=== PATIENT | female | born 1950 | race Caucasian/White ===

== ENCOUNTER 2019-05-16 11:59 | Outpatient (CLI) | payer MEDICARE ==
--- NOTE | 2019-05-16 14:44 | MMO ---
Bilateral MAMMO Bilat Screen [facility]. CLINICAL HISTORY: Patient is 68 years old and is seen for screening. The patient has no family history of breast cancer. The patient has no personal history of cancer. VIEWS: The views performed were: bilateral craniocaudal with tomosynthesis and bilateral mediolateral oblique with tomosynthesis. FILMS COMPARED: The present examination has been compared to prior imaging studies performed at [facility] on 02/20/2015, 02/28/2015 and 04/13/2017. MAMMOGRAM FINDINGS: The breasts are heterogeneously dense, which could obscure a lesion on mammography. There are stable benign appearing calcifications seen in both breasts. There are no suspicious masses, suspicious calcifications, or new areas of architectural distortion. IMPRESSION: THERE IS NO MAMMOGRAPHIC EVIDENCE OF MALIGNANCY. A ROUTINE FOLLOW-UP MAMMOGRAM IN 1 YEAR IS RECOMMENDED. THE RESULTS OF THIS EXAM WERE SENT TO THE PATIENT. ACR BI-RADS Category 2 - Benign finding MAMMOGRAPHY NOTE: 1. A negative mammogram report should not delay a biopsy if a dominant of clinically suspicious mass is present. 2. Approximately 10% to 15% of breast cancers are not detected by mammography. 3. Adenosis and dense breasts may obscure an underlying neoplasm. Reported by: TUNG MAHER MD Electonically Signed: [id number]
== END 2019-05-16 12:00 | disposition home or self-care (01) ==
LOC: BICMAMMO 11:59
PROVIDERS: ATTEND Family Medicine
DX: Z12.31 Encounter for screening mammogram for malignant neoplasm of breast (principal)
CPT/HCPCS: 77063; 77067

== ENCOUNTER 2019-06-13 09:29 | Outpatient (CLI) | payer MEDICARE ==
--- NOTE | 2019-06-13 10:40 | ULT ---
Exam: Bilateral renal ultrasound HISTORY: Hypertension. COMPARISON: None. TECHNIQUE: Grayscale imaging of the kidneys was performed. Kidneys also evaluated with color flow, Do ppler imaging and spectral waveform analysis FINDINGS: Right kidney: Renal cortical thinning. No hydronephrosis. Anechoic focus compatible with a 0.8 cm cys t. Right kidney measurements: 8.2 x 3.8 x 4.0 cm. Left kidney: Normal cortical echotexture. No hydronephrosis. Anechoic focus compatible with a 0.9 cm cyst. Left kidney measurements 8.1 x 4.2 x 4.5 cm. Urinary bladder: Normal mucosa. Renal Doppler: Right renal artery 85.2 cm/s Left renal artery 114.0 cm/s Aorta 64.5 cm/s Right renal artery to aorta ratio 1.3 Left renal artery to aorta ratio 1.8 Right renal arcuate artery resistive index 0.71 Left renal arcuate artery resistive index 0.70 IMPRESSION: 1. No hydronephrosis. 2. Small bilateral renal cortical cyst. 3. Left and right renal arcuate artery resistive index is at the upper limits of normal. Transcribed Date/Time: 06/13/2019 11:29 AM
== END 2019-06-13 09:30 | disposition home or self-care (01) ==
LOC: BICULT 09:29
PROVIDERS: ATTEND Internal Medicine Nephrology
DX: I12.9 Hypertensive chronic kidney disease with stage 1 through stage 4 chronic kidney disease, or unspecified chronic kidney disease (principal); N18.4 Chronic kidney disease, stage 4 (severe); N28.1 Cyst of kidney, acquired
CPT/HCPCS: 76700; 76770

== ENCOUNTER 2019-06-29 09:01 | Emergency (ER) | payer MEDICARE ==
--- NOTE | 2019-06-29 09:56 | RAD ---
EXAM: 3 views of the right wrist HISTORY: Wrist pain after fall COMPARISON: None FINDINGS: 3 views of the right wrist shows no evidence of acute fracture or dislocation. No soft tiss ue swelling is seen. 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 Calcifications seen along the dorsal capsule of the wrist joint. IMPRESSION: No evidence of acute osseous abnormality.
[2019-06-29 10:08] LABS: Hemoglobin 11.4 g/dL (12.0-16.0); Mean Corpuscular HGB CONC 34.1 g/dL (32.0-36.0); Mean Corpuscular Hemoglobin 35.4 pg (27.0-31.0); Mean Platelet Volume 8.5 fL (7.4-10.4); Platelet Count 364 thou/uL (130-400); RBC Distribution Width 14.4 % (11.5-14.5); Red Blood Cell (RBC) Count 3.24 mill/uL (4.20-5.40); White Blood Cell (WBC) Count 12.9 thou/uL (4.8-10.8)
[2019-06-29 10:26] LABS: CRP (Inflammatory) 7.08 mg/dL (= or < 0.5); Uric Acid 3.5 mg/dL (2.6-6.0)
[2019-06-29 10:49] LABS: Band 5 % (5-11); Lymphocytes 24 % (21-51); MDiff Complete? YES; Monocytes 5 % (0-10); Neutrophil 66 % (42-75); Platelet Morphology Comment Appears Adequate; RBC Morphology Normal
== END 2019-06-29 11:53 | disposition home or self-care (01) ==
LOC: ERS 09:01
DX: M25.431 Effusion, right wrist (principal); E11.9 Type 2 diabetes mellitus without complications; M10.9 Gout, unspecified; E78.5 Hyperlipidemia, unspecified; Z79.899 Other long term (current) drug therapy; Z79.84 Long term (current) use of oral hypoglycemic drugs
CPT/HCPCS: 36415; 80048; 82088; 82306; 83970; 84100; 84244; 84550; 85014; 85018; 85652; 86038; 86140; 86225; 93005

== ENCOUNTER 2021-06-20 14:57 | Inpatient (IN) | payer MEDICARE ==
[2021-06-20] MEDS ORDERED: Insulin Regular 300 UNITS/3 ML VIAL ONE (15:30)
[2021-06-20 15:59] LABS: Hemoglobin 8.7 g/dL (12.0-16.0); Mean Corpuscular HGB CONC 33.8 g/dL (32.0-36.0); Mean Corpuscular Hemoglobin 35.3 pg (27.0-31.0); Mean Platelet Volume 9.8 fL (7.4-10.4); Platelet Count 390 thou/uL (130-400); RBC Distribution Width 16.2 % (11.5-14.5); Red Blood Cell (RBC) Count 2.46 mill/uL (4.20-5.40); White Blood Cell (WBC) Count 24.3 thou/uL (4.8-10.8)
[2021-06-20 16:20] LABS: ALT (SGPT) 9 U/L (8-55); AST (SGOT) 12 U/L (5-34); Albumin 2.6 g/dL (3.4-4.8); Alkaline Phosphatase 86 U/L (40-110); Anion Gap 18 mmol/L (10-20); BUN (Urea Nitrogen) 92 mg/dL (9.8-20.1); Bilirubin, Total 0.9 mg/dL (0.2-1.2); Calc. Creatinine Clearance 0 mL/min (70-130); Calcium 8.4 mg/dL (7.8-10.44); Carbon Dioxide 30 mmol/L (23-31); Chloride 88 mmol/L (98-107); Globulin 2.8 g/dL (2.4-3.5); Potassium 3.6 mmol/L (3.5-5.1); Protein, Total 5.4 g/dL (5.8-8.1); Sodium 132 mmol/L (136-145)
[2021-06-20 16:28] LABS: Glucose 577 mg/dL (80-115)
[2021-06-20 16:33] LABS: Anisocytosis SLIGHT = 6-15 cells (100X) (0-5/hpf); Band 45 % (5-11); Eosinophils 1 % (0-10); Lymphocytes 2 % (21-51); MDiff Complete? YES; Macrocytosis SLIGHT = 6-15 cells (100X) (0-5/hpf); Monocytes 5 % (0-10); Neutrophil 45 % (42-75); Platelet Morphology Comment Appears Adequate; Polychromasia MODERATE = 3-4 cells (100X) (0-2/hpf); Reactive Lymphocytes 2 % (0-10); Reflex for Review?? YES
[2021-06-20 16:53] LABS: SARS-CoV-2 NAA Rapid Test DETECTED (NotDetected)
[2021-06-20] MEDS ORDERED: Piperacillin/Tazobactam 3.375 GM VIAL ONE (17:08)
[2021-06-20 17:11] LABS: Bilirubin Negative (Negative); Blood, Urine Negative (Negative); Clarity Clear (Clear); Glucose, Urine (Dipstick) Greater than 1000 mg/dL (Negative); Ketone, Urine Negative (Negative); Leukocyte Negative Leu/uL (Negative); Nitrite Negative (Negative); Protein, Urine (Dipstick) Negative (Neg-Trace); Specific Gravity, Urine 1.016 (1.002-1.036); Urobilinogen Normal mg/dL (Less than 2)
[2021-06-20] MEDS ORDERED: HYDROcodone/Acetaminophen 5/325 mg Tablet PO PRN (17:54)
[2021-06-20] MEDS ORDERED: Guaifenesin DM 100-10/5 ML UDCUP PO PRN (17:54)
[2021-06-20] MEDS ORDERED: Acetaminophen 325 MG TAB PO PRN (17:54)
[2021-06-20] MEDS ORDERED: Ondansetron PF 4 MG/2 ML Vial IVP PRN (17:54)
[2021-06-20] MEDS ORDERED: Bisacodyl 5 MG TAB PO PRN (17:54)
[2021-06-20] MEDS ORDERED: Ondansetron ODT 4 MG TAB PO PRN (17:54)
[2021-06-20] MEDS ORDERED: Dextrose 50% Abboject 50 ML SYRINGE SLOW IVP PRN (17:57)
[2021-06-20] MEDS ORDERED: Dextrose 5% in Water 1,000 ML IV PRN (17:57)
[2021-06-20] MEDS ORDERED: Vancomycin 1 GM/200 ML BAG ONE (18:04)
[2021-06-20] MEDS ORDERED: cefTRIAXone\\ROCEPHIN 1 GM VIAL ONE (19:51)
[2021-06-20] MEDS ORDERED: Azithromycin 500 MG VIAL ONE (19:52)
[2021-06-20] MEDS ORDERED: Famotidine/PF 20 mg/2ml Vial ONE (19:53)
[2021-06-20] MEDS ORDERED: Sodium Chloride 0.9% 1,000 ML IV SCH (20:00)
[2021-06-20] MEDS: cefTRIAXone\\ROCEPHIN 1 GM in Sodium Chloride 0.9% 100 ML IVPB SCH (20:06)
[2021-06-20] MEDS: Famotidine 20 MG TAB PO SCH (20:07)
[2021-06-20] MEDS: Azithromycin 500 MG in Sodium Chloride 0.9% 250 ML 250 ML IVPB SCH (21:08)
[2021-06-20] MEDS: Lantus 1000 UNITS/10 ML VIAL SC SCH (21:25)
[2021-06-20] MEDS: Insulin Regular 300 UNITS/3 ML VIAL SC PRN (21:26)
[2021-06-21 04:37] LABS: Hemoglobin 8.3 g/dL (12.0-16.0); Mean Corpuscular Hemoglobin 35.8 pg (27.0-31.0); Mean Platelet Volume 9.9 fL (7.4-10.4); Platelet Count 362 thou/uL (130-400); RBC Distribution Width 16.4 % (11.5-14.5); Red Blood Cell (RBC) Count 2.31 mill/uL (4.20-5.40); White Blood Cell (WBC) Count 27.4 thou/uL (4.8-10.8)
[2021-06-21 04:57] LABS: Anion Gap 14 mmol/L (10-20); BUN (Urea Nitrogen) 82 mg/dL (9.8-20.1); Calc. Creatinine Clearance 17 mL/min (70-130); Calcium 8.9 mg/dL (7.8-10.44); Carbon Dioxide 33 mmol/L (23-31); Cardiac Risk 3.3 (Less than 4.5); Chloride 96 mmol/L (98-107); Cholesterol 79 mg/dl (< 200 Desired); Glucose 135 mg/dL (80-115); HDL Cholesterol 24 mg/dL (>60 Neg Risk); LDL Cholesterol, Calculated 20 mg/dL; Sodium 140 mmol/L (136-145); Triglycerides 173 mg/dL (Less than 150)
[2021-06-21 05:01] LABS: Potassium 2.7 mmol/L (3.5-5.1)
[2021-06-21] MEDS ORDERED: Potassium Chloride 20 MEQ TAB ONE ×3 (05:37→05:38)
[2021-06-21] MEDS ORDERED: Potassium Chloride 20 MEQ TAB PO SCH ×3 (06:15→15:45)
[2021-06-21 06:21] LABS: Band 39 % (5-11); Lymphocytes 8 % (21-51); MDiff Complete? YES; Monocytes 6 % (0-10); Neutrophil 47 % (42-75)
[2021-06-21] MEDS ORDERED: Electrolyte Replacement Protocol 1 EACH FS SCH (07:29)
[2021-06-21] MEDS: Aspirin 81 mg Enteric Coated Tablet PO SCH (08:37)
[2021-06-21] MEDS: Zinc Sulfate 220 MG CAP PO SCH (08:37)
[2021-06-21] MEDS: Ascorbic Acid 500 mg Chewable Tablet PO SCH (08:38)
[2021-06-21] MEDS: Enoxaparin Sodium 30 MG/0.3 ML SYRINGE SC SCH (08:38)
[2021-06-21] MEDS ORDERED: Dextrose 5% in Water 1,000 ML IV PRN (08:49)
[2021-06-21] MEDS ORDERED: Dextrose 50% Abboject 50 ML SYRINGE SLOW IVP PRN (08:49)
[2021-06-21] MEDS ORDERED: Dexamethasone 4 mg/ml Vial SLOW IVP SCH (09:00)
[2021-06-21 11:08] VITALS: BMI 25.2
[2021-06-21] MEDS: Insulin Regular 300 UNITS/3 ML VIAL SC PRN ×3 (11:58→20:58)
[2021-06-21 12:11] LABS: Anion Gap 16 mmol/L (10-20); BUN (Urea Nitrogen) 82 mg/dL (9.8-20.1); Calc. Creatinine Clearance 17 mL/min (70-130); Calcium 9.2 mg/dL (7.8-10.44); Carbon Dioxide 31 mmol/L (23-31); Chloride 95 mmol/L (98-107); Glucose 152 mg/dL (80-115); Potassium 3.3 mmol/L (3.5-5.1); Sodium 139 mmol/L (136-145)
[2021-06-21] MEDS: cefTRIAXone\\ROCEPHIN 1 GM in Sodium Chloride 0.9% 100 ML IVPB SCH (20:47)
[2021-06-21] MEDS: Famotidine 20 MG TAB PO SCH (20:48)
[2021-06-21] MEDS: Cholecalciferol 1,000 UNITS (25 MCG) TAB PO SCH (20:48)
[2021-06-21] MEDS: Atorvastatin Calcium 10 MG TAB PO SCH (20:48)
[2021-06-21] MEDS: Carvedilol 25 MG TAB PO SCH (20:49)
[2021-06-21] MEDS: Lantus 1000 UNITS/10 ML VIAL SC SCH (20:51)
[2021-06-22] MEDS: Azithromycin 500 MG in Sodium Chloride 0.9% 250 ML 250 ML IVPB SCH (00:44)
[2021-06-22 05:49] LABS: Hemoglobin 8.1 g/dL (12.0-16.0); Mean Corpuscular HGB CONC 34.1 g/dL (32.0-36.0); Mean Corpuscular Hemoglobin 36.3 pg (27.0-31.0); Mean Platelet Volume 9.6 fL (7.4-10.4); Platelet Count 321 thou/uL (130-400); RBC Distribution Width 15.9 % (11.5-14.5); Red Blood Cell (RBC) Count 2.24 mill/uL (4.20-5.40); White Blood Cell (WBC) Count 24.4 thou/uL (4.8-10.8)
[2021-06-22 06:07] LABS: Anion Gap 14 mmol/L (10-20); BUN (Urea Nitrogen) 72 mg/dL (9.8-20.1); Calc. Creatinine Clearance 19 mL/min (70-130); Calcium 9.4 mg/dL (7.8-10.44); Carbon Dioxide 28 mmol/L (23-31); Chloride 101 mmol/L (98-107); Glucose 135 mg/dL (80-115); Potassium 4.1 mmol/L (3.5-5.1); Sodium 139 mmol/L (136-145)
[2021-06-22] MEDS ORDERED: Loperamide HCl 2 MG CAP PO PRN (07:11)
[2021-06-22] MEDS ORDERED: Artificial Tear Sol 15 ML BOT EA EYE PRN (07:11)
[2021-06-22] MEDS ORDERED: Sodium Chloride 0.65% Nasal 44 ML BOT EA NARE PRN (07:11)
[2021-06-22] MEDS ORDERED: hydrALAZINE 20 MG/ML VIAL SLOW IVP PRN (07:11)
[2021-06-22] MEDS ORDERED: Loratadine 10 MG TAB PO PRN (07:11)
[2021-06-22] MEDS ORDERED: Hydrocerin (Eucerin) Cream 120 gm Jar TOP PRN (07:11)
[2021-06-22] MEDS ORDERED: Benzonatate 100 MG CAP PO PRN (07:11)
[2021-06-22] MEDS ORDERED: Calcium Carbonate 500 MG ChewTAB PO PRN (07:11)
[2021-06-22] MEDS ORDERED: Cepastat Lozenges 1 LOZ PO PRN (07:11)
[2021-06-22] MEDS ORDERED: GUAIFENESIN SF SOLN 200 MG/10 ML UDCUP PO PRN (07:11)
[2021-06-22] MEDS ORDERED: Albuterol Sulfate 2.5 mg/3 ml Neb NEB PRN (07:16)
[2021-06-22] MEDS ORDERED: Albuterol 200 PUFF (6.7GM INHALER) INH PRN (07:20)
[2021-06-22 09:47] LABS: Band 36 % (5-11); Lymphocytes 3 % (21-51); MDiff Complete? YES; Monocytes 1 % (0-10); Myelocyte 1 % (0-0); Neutrophil 59 % (42-75)
[2021-06-22] MEDS: Dexamethasone 4 MG TAB PO SCH (10:22)
[2021-06-22] MEDS: Zinc Sulfate 220 MG CAP PO SCH (10:22)
[2021-06-22] MEDS: Folic Acid/Vit B Comp W-C PO SCH (10:23)
[2021-06-22] MEDS: Ascorbic Acid 500 mg Chewable Tablet PO SCH (10:23)
[2021-06-22] MEDS: Enoxaparin Sodium 30 MG/0.3 ML SYRINGE SC SCH (10:24)
[2021-06-22] MEDS: Aspirin 81 mg Enteric Coated Tablet PO SCH (10:24)
[2021-06-22] MEDS: Carvedilol 25 MG TAB PO SCH ×2 (10:31→20:38)
[2021-06-22] MEDS: Insulin Regular 300 UNITS/3 ML VIAL SC PRN ×2 (14:00→18:31)
[2021-06-22] MEDS: Azithromycin 250 MG TAB PO SCH ×2 (20:38→20:39)
[2021-06-22] MEDS: cefTRIAXone\\ROCEPHIN 1 GM in Sodium Chloride 0.9% 100 ML IVPB SCH (20:38)
[2021-06-22] MEDS: Cholecalciferol 1,000 UNITS (25 MCG) TAB PO SCH (20:39)
[2021-06-22] MEDS: Lantus 1000 UNITS/10 ML VIAL SC SCH (20:42)
[2021-06-23 05:32] LABS: Mean Corpuscular HGB CONC 33.9 g/dL (32.0-36.0); Mean Corpuscular Hemoglobin 36.1 pg (27.0-31.0); Mean Platelet Volume 9.6 fL (7.4-10.4); Platelet Count 307 thou/uL (130-400); Red Blood Cell (RBC) Count 2.21 mill/uL (4.20-5.40); White Blood Cell (WBC) Count 16.9 thou/uL (4.8-10.8)
[2021-06-23 05:56] LABS: ALT (SGPT) 13 U/L (8-55); AST (SGOT) 11 U/L (5-34); Albumin 2.6 g/dL (3.4-4.8); Alkaline Phosphatase 80 U/L (40-110); Anion Gap 11 mmol/L (10-20); BUN (Urea Nitrogen) 59 mg/dL (9.8-20.1); Bilirubin, Total 0.4 mg/dL (0.2-1.2); CRP (Inflammatory) 4.27 mg/dL (= or < 0.5); Calc. Creatinine Clearance 20 mL/min (70-130); Calcium 9.4 mg/dL (7.8-10.44); Carbon Dioxide 30 mmol/L (23-31); Chloride 100 mmol/L (98-107); Globulin 3.1 g/dL (2.4-3.5); Glucose 202 mg/dL (80-115); Magnesium 2.2 mg/dL (1.6-2.6); Potassium 4.3 mmol/L (3.5-5.1); Protein, Total 5.7 g/dL (5.8-8.1); Sodium 137 mmol/L (136-145)
[2021-06-23] MEDS: Insulin Regular 300 UNITS/3 ML VIAL SC PRN ×2 (06:22→12:26)
[2021-06-23 06:35] LABS: MDiff Complete? YES
[2021-06-23 06:36] LABS: Band 12 % (5-11); Lymphocytes 10 % (21-51); Monocytes 1 % (0-10); Neutrophil 77 % (42-75); Nucleated RBC 1 % (0)
[2021-06-23] MEDS: Enoxaparin Sodium 30 MG/0.3 ML SYRINGE SC SCH (09:11)
[2021-06-23] MEDS: Dexamethasone 4 MG TAB PO SCH (09:12)
[2021-06-23] MEDS: Aspirin 81 mg Enteric Coated Tablet PO SCH (09:12)
[2021-06-23] MEDS: Ascorbic Acid 500 mg Chewable Tablet PO SCH (09:12)
[2021-06-23] MEDS: Zinc Sulfate 220 MG CAP PO SCH (09:13)
[2021-06-23] MEDS: Folic Acid/Vit B Comp W-C PO SCH (09:13)
[2021-06-23] MEDS: Carvedilol 25 MG TAB PO SCH (09:15)
[2021-06-23 13:43] VITALS: TEMP 97.7
[2021-06-23 15:07] LABS: Creatinine, Urine 69.66 mg/dL (47-110)
[2021-06-23 16:39] VITALS: BP 141/67
== END 2021-06-23 19:25 | disposition home or self-care (01) | DRG 871 ==
LOC: ERS 14:57 → ERHOLD 17:38 → 2SW 06-21 06:27
PROVIDERS: ADMIT Internal Medicine; ATTEND Internal Medicine
PROC: 8E0ZXY6 Isolation (ICD-10-PCS; principal; 2021-06-20)
DX: A41.89 Other specified sepsis (principal); U07.1 COVID-19; J12.82 Pneumonia due to coronavirus disease 2019; J96.01 Acute respiratory failure with hypoxia; N17.9 Acute kidney failure, unspecified; N18.4 Chronic kidney disease, stage 4 (severe); E87.2 Acidosis; R65.20 Severe sepsis without septic shock; E11.65 Type 2 diabetes mellitus with hyperglycemia; E78.5 Hyperlipidemia, unspecified; E11.22 Type 2 diabetes mellitus with diabetic chronic kidney disease; I13.10 Hypertensive heart and chronic kidney disease without heart failure, with stage 1 through stage 4 chronic kidney disease, or unspecified chronic kidney disease; F17.210 Nicotine dependence, cigarettes, uncomplicated; D63.1 Anemia in chronic kidney disease; E86.9 Volume depletion, unspecified; E87.6 Hypokalemia; Z90.710 Acquired absence of both cervix and uterus; Z79.82 Long term (current) use of aspirin; Z79.84 Long term (current) use of oral hypoglycemic drugs; Z83.3 Family history of diabetes mellitus
CPT/HCPCS: 36415; 36416; 51701; 71045; 80048; 80053; 80061; 81003; 82274; 82570; 82728; 83036; 83605; 83735; 83880; 84100; 84156; 84484; 85025; 85060; 85379; 86140; 87040; 87077; 87086; 87186; 93005; 96365; 96366; 96367; J0456; J0696; J1100; J1650; J1815; J2405; J2543; J3370; J3490; J7050; J8540; S0028; U0002

== ENCOUNTER 2021-06-29 20:59 | Inpatient (IN) | payer MEDICARE ==
[2021-06-29 21:52] LABS: Actual Bicarbonate (HCO3v) 25 mEq/L (22-28); Analyzer IN Cardio ER; Base Excess 0.2 mEq/L (-2.0 to +3.0); Calcium, Ionized (venous) 1.22 mmol/L (1.16-1.32); Chloride (VBG) 90 mmol/L (98-106); Hemoglobin (Hb) 8.6 g/dL (11.7-16.1); Potassium (VBG) 5.45 mmol/L (3.70-5.30); Sodium 128.9 mmol/L (133-146); pH (venous) 7.39 (7.32-7.43)
[2021-06-29 22:05] LABS: ALT (SGPT) 12 U/L (8-55); AST (SGOT) 6 U/L (5-34); Alkaline Phosphatase 120 U/L (40-110); Anion Gap 17 mmol/L (10-20); BUN (Urea Nitrogen) 84 mg/dL (9.8-20.1); Bilirubin, Total 1.1 mg/dL (0.2-1.2); Calc. Creatinine Clearance 0 mL/min (70-130); Calcium 9.4 mg/dL (7.8-10.44); Carbon Dioxide 29 mmol/L (23-31); Chloride 88 mmol/L (98-107); Globulin 2.2 g/dL (2.4-3.5); Magnesium 2.9 mg/dL (1.6-2.6); Potassium 5.8 mmol/L (3.5-5.1); Protein, Total 5.2 g/dL (5.8-8.1); Sodium 128 mmol/L (136-145)
[2021-06-29 22:13] LABS: Hemoglobin 8.2 g/dL (12.0-16.0); Mean Corpuscular HGB CONC 33.2 g/dL (32.0-36.0); Mean Platelet Volume 11.4 fL (7.4-10.4); Platelet Count 346 thou/uL (130-400); RBC Distribution Width 16.3 % (11.5-14.5); Red Blood Cell (RBC) Count 2.35 mill/uL (4.20-5.40); White Blood Cell (WBC) Count 22.8 thou/uL (4.8-10.8)
[2021-06-29 22:14] LABS: Glucose 869 mg/dL (80-115)
[2021-06-29 22:29] LABS: Band 6 % (5-11); Lymphocytes 8 % (21-51); MDiff Complete? YES; Macrocytosis MODERATE=16-30 cells (100X) (0-5/hpf); Monocytes 3 % (0-10); Neutrophil 82 % (42-75); Nucleated RBC 1 % (0); Platelet Morphology Comment Appears Adequate; Reactive Lymphocytes 1 % (0-10)
[2021-06-29] MEDS ORDERED: Insulin Regular 300 UNITS/3 ML VIAL ONE (23:21)
[2021-06-30 00:30] LABS: Anion Gap 18 mmol/L (10-20); BUN (Urea Nitrogen) 78 mg/dL (9.8-20.1); Calc. Creatinine Clearance 0 mL/min (70-130); Calcium 8.9 mg/dL (7.8-10.44); Carbon Dioxide 23 mmol/L (23-31); Chloride 94 mmol/L (98-107); Potassium 4.8 mmol/L (3.5-5.1); Sodium 130 mmol/L (136-145)
[2021-06-30 00:39] LABS: Glucose Greater than 800 mg/dL (80-115)
[2021-06-30 00:41] LABS: Lactic Acid 1.7 mmol/L (0.5-2.2)
[2021-06-30 02:58] LABS: SARS-CoV-2 NAA Rapid Test Not Detected (NotDetected)
[2021-06-30] MEDS ORDERED: NS 0.9% w/ 20 MEQ KCL 1,000 ML ONE (03:01)
[2021-06-30] MEDS ORDERED: INSULIN REGULAR IN 0.9 % NACL 100 UNIT/100 ML BAG ONE (03:01)
[2021-06-30] MEDS ORDERED: Acetaminophen 325 MG TAB PO PRN (03:02)
[2021-06-30] MEDS ORDERED: Bisacodyl 5 MG TAB PO PRN (03:02)
[2021-06-30] MEDS ORDERED: GUAIFENESIN SF SOLN 200 MG/10 ML UDCUP PO PRN (03:06)
[2021-06-30] MEDS ORDERED: hydrALAZINE 20 MG/ML VIAL SLOW IVP PRN (03:06)
[2021-06-30 03:15] LABS: Troponin I Less than 0.010 ng/mL (< 0.028)
[2021-06-30] MEDS ORDERED: HUMULIN R 100 UNITS in Sodium Chloride 0.9% 100 ML IVPB SCH (03:15)
[2021-06-30 03:37] LABS: Bilirubin Negative (Negative); Blood, Urine Negative (Negative); Clarity Clear (Clear); Glucose, Urine (Dipstick) Greater than 1000 mg/dL (Negative); Ketone, Urine Negative (Negative); Leukocyte Negative Leu/uL (Negative); Nitrite Negative (Negative); Protein, Urine (Dipstick) Negative (Neg-Trace); Specific Gravity, Urine 1.017 (1.002-1.036); Urobilinogen Normal mg/dL (Less than 2)
[2021-06-30] MEDS: Sodium Chloride 0.9% 1,000 ML IV SCH ×2 (05:02→16:55)
[2021-06-30 05:19] VITALS: BMI 25.1
[2021-06-30 05:45] LABS: Creatinine, Urine 22.12 mg/dL (47-110)
[2021-06-30 06:04] LABS: Band 23 % (5-11); Hemoglobin 7.5 g/dL (12.0-16.0); Lymphocytes 2 % (21-51); MDiff Complete? YES; Mean Corpuscular HGB CONC 35.3 g/dL (32.0-36.0); Mean Corpuscular Hemoglobin 36.6 pg (27.0-31.0); Mean Platelet Volume 11.1 fL (7.4-10.4); Metamyelocyte 3 % (0-0); Monocytes 3 % (0-10); Neutrophil 69 % (42-75); Platelet Count 261 thou/uL (130-400); Platelet Morphology Comment Appears Adequate; RBC Distribution Width 16.1 % (11.5-14.5); Red Blood Cell (RBC) Count 2.04 mill/uL (4.20-5.40); White Blood Cell (WBC) Count 21.9 thou/uL (4.8-10.8)
[2021-06-30 06:18] LABS: Phosphorus 3.2 mg/dL (2.3-4.7)
[2021-06-30 06:19] LABS: Troponin I Less than 0.010 ng/mL (< 0.028)
[2021-06-30 06:19] LABS: ALT (SGPT) 11 U/L (8-55); AST (SGOT) 8 U/L (5-34); Albumin 2.5 g/dL (3.4-4.8); Alkaline Phosphatase 95 U/L (40-110); Anion Gap 10 mmol/L (10-20); BUN (Urea Nitrogen) 78 mg/dL (9.8-20.1); Bilirubin, Total 0.5 mg/dL (0.2-1.2); Calc. Creatinine Clearance 18 mL/min (70-130); Calcium 8.6 mg/dL (7.8-10.44); Carbon Dioxide 26 mmol/L (23-31); Chloride 103 mmol/L (98-107); Globulin 2.1 g/dL (2.4-3.5); Magnesium 2.6 mg/dL (1.6-2.6); Potassium 4.3 mmol/L (3.5-5.1); Protein, Total 4.6 g/dL (5.8-8.1); Sodium 135 mmol/L (136-145)
[2021-06-30 06:24] LABS: Glucose 557 mg/dL (80-115)
[2021-06-30 07:38] LABS: Anion Gap 13 mmol/L (10-20); BUN (Urea Nitrogen) 72 mg/dL (9.8-20.1); Calc. Creatinine Clearance 19 mL/min (70-130); Calcium 8.7 mg/dL (7.8-10.44); Carbon Dioxide 25 mmol/L (23-31); Chloride 104 mmol/L (98-107); Glucose 477 mg/dL (80-115); Potassium 4.4 mmol/L (3.5-5.1); Sodium 138 mmol/L (136-145)
[2021-06-30] MEDS ORDERED: Piperacillin/Tazobactam 4.5 GM in Sodium Chloride 0.9% 100 ML IVPB SCH (08:00)
[2021-06-30] MEDS ORDERED: Piperacillin/Tazobactam 3.375 GM in Sodium Chloride 0.9% 100 ML IVPB SCH (08:15)
[2021-06-30] MEDS ORDERED: Carvedilol 25 MG TAB PO SCH (09:00)
[2021-06-30] MEDS: Aspirin Chewable 81 MG TAB PO SCH (09:37)
[2021-06-30] MEDS: glyBURIDE 5 MG TAB PO SCH (09:37)
[2021-06-30] MEDS: Allopurinol 300 MG TAB PO SCH (09:37)
[2021-06-30] MEDS: guaiFENesin ER 600 MG TAB PO SCH ×2 (09:37→20:42)
[2021-06-30] MEDS: Heparin 5,000 UNITS/ML VIAL SC SCH ×3 (09:39→20:41)
[2021-06-30] MEDS: Dexamethasone 4 mg/ml Vial SLOW IVP SCH (09:43)
[2021-06-30 12:12] LABS: Anion Gap 9 mmol/L (10-20); BUN (Urea Nitrogen) 74 mg/dL (9.8-20.1); Calc. Creatinine Clearance 20 mL/min (70-130); Calcium 8.6 mg/dL (7.8-10.44); Carbon Dioxide 28 mmol/L (23-31); Chloride 106 mmol/L (98-107); Glucose 170 mg/dL (80-115); Sodium 139 mmol/L (136-145)
[2021-06-30] MEDS ORDERED: Dextrose 50% Abboject 50 ML SYRINGE SLOW IVP PRN (16:39)
[2021-06-30] MEDS ORDERED: Dextrose 5% in Water 1,000 ML IV PRN (16:39)
[2021-06-30] MEDS: Piperacillin/Tazobactam 3.375 GM in Sodium Chloride 0.9% 100 ML IVPB SCH (20:42)
[2021-06-30] MEDS: Atorvastatin Calcium 10 MG TAB PO SCH (20:42)
[2021-07-01] MEDS: Sodium Chloride 0.9% 1,000 ML IV SCH ×2 (01:28→15:14)
[2021-07-01 04:30] LABS: Anion Gap 15 mmol/L (10-20); BUN (Urea Nitrogen) 69 mg/dL (9.8-20.1); Calc. Creatinine Clearance 18 mL/min (70-130); Calcium 8.1 mg/dL (7.8-10.44); Carbon Dioxide 19 mmol/L (23-31); Chloride 109 mmol/L (98-107); Glucose 243 mg/dL (80-115); Potassium 4.3 mmol/L (3.5-5.1); Sodium 139 mmol/L (136-145)
[2021-07-01] MEDS: HumaLOG 300 UNITS/3 ML VIAL SC PRN ×4 (05:38→20:59)
[2021-07-01] MEDS: glyBURIDE 5 MG TAB PO SCH (08:47)
[2021-07-01] MEDS: Dexamethasone 4 mg/ml Vial SLOW IVP SCH (08:47)
[2021-07-01] MEDS: guaiFENesin ER 600 MG TAB PO SCH ×2 (08:47→20:57)
[2021-07-01] MEDS: Piperacillin/Tazobactam 3.375 GM in Sodium Chloride 0.9% 100 ML IVPB SCH ×2 (08:47→20:56)
[2021-07-01] MEDS: Allopurinol 300 MG TAB PO SCH (08:47)
[2021-07-01] MEDS: Aspirin Chewable 81 MG TAB PO SCH (08:47)
[2021-07-01] MEDS: Heparin 5,000 UNITS/ML VIAL SC SCH ×3 (08:58→20:57)
[2021-07-01] MEDS: Atorvastatin Calcium 10 MG TAB PO SCH (20:57)
[2021-07-01] MEDS: Lantus 1000 UNITS/10 ML VIAL SC SCH (20:59)
[2021-07-02] MEDS: Sodium Chloride 0.9% 1,000 ML IV SCH ×3 (00:39→17:49)
[2021-07-02] MEDS: HumaLOG 300 UNITS/3 ML VIAL SC PRN ×3 (06:21→17:48)
[2021-07-02 07:31] LABS: Hemoglobin 6.7 g/dL (12.0-16.0); Mean Corpuscular HGB CONC 33.8 g/dL (32.0-36.0); Mean Corpuscular Hemoglobin 36.1 pg (27.0-31.0); Mean Platelet Volume 10.6 fL (7.4-10.4); Platelet Count 313 thou/uL (130-400); RBC Distribution Width 16.5 % (11.5-14.5); Red Blood Cell (RBC) Count 1.86 mill/uL (4.20-5.40); White Blood Cell (WBC) Count 21.6 thou/uL (4.8-10.8)
[2021-07-02 07:42] LABS: Anion Gap 12 mmol/L (10-20); BUN (Urea Nitrogen) 60 mg/dL (9.8-20.1); Calc. Creatinine Clearance 21 mL/min (70-130); Calcium 7.9 mg/dL (7.8-10.44); Carbon Dioxide 20 mmol/L (23-31); Chloride 111 mmol/L (98-107); Glucose 192 mg/dL (80-115); Potassium 3.9 mmol/L (3.5-5.1); Sodium 139 mmol/L (136-145)
[2021-07-02 07:52] LABS: Band 2 % (5-11); Lymphocytes 11 % (21-51); MDiff Complete? YES; Metamyelocyte 1 % (0-0); Monocytes 2 % (0-10); Myelocyte 3 % (0-0); Neutrophil 81 % (42-75); Nucleated RBC 1 % (0); Ovalocytes SLIGHT = 2-5 cells (100X) (0-1/hpf); Platelet Morphology Comment Appears Adequate; Polychromasia MODERATE = 3-4 cells (100X) (0-2/hpf)
[2021-07-02 10:01] LABS: Ferritin 372.18 ng/mL (10-291)
[2021-07-02] MEDS: glyBURIDE 5 MG TAB PO SCH (10:04)
[2021-07-02] MEDS: Allopurinol 100 MG TAB PO SCH (10:04)
[2021-07-02] MEDS: guaiFENesin ER 600 MG TAB PO SCH ×2 (10:04→20:36)
[2021-07-02] MEDS: Aspirin Chewable 81 MG TAB PO SCH (10:04)
[2021-07-02] MEDS: Lantus 1000 UNITS/10 ML VIAL SC SCH ×2 (10:05→20:37)
[2021-07-02] MEDS: Piperacillin/Tazobactam 3.375 GM in Sodium Chloride 0.9% 100 ML IVPB SCH ×2 (10:05→20:35)
[2021-07-02] MEDS: Atorvastatin Calcium 10 MG TAB PO SCH (20:36)
[2021-07-02] MEDS: Ondansetron PF 4 MG/2 ML Vial IVP PRN (21:09)
[2021-07-02 21:50] LABS: Hemoglobin 11.4 g/dL (12.0-16.0)
[2021-07-03] MEDS: Sodium Chloride 0.9% 1,000 ML IV SCH (04:06)
[2021-07-03] MEDS: Lantus 1000 UNITS/10 ML VIAL SC SCH ×2 (08:48→21:48)
[2021-07-03] MEDS: Allopurinol 100 MG TAB PO SCH (08:49)
[2021-07-03] MEDS: glyBURIDE 5 MG TAB PO SCH (08:49)
[2021-07-03] MEDS: guaiFENesin ER 600 MG TAB PO SCH ×2 (08:49→20:02)
[2021-07-03] MEDS: Aspirin Chewable 81 MG TAB PO SCH (08:49)
[2021-07-03] MEDS: Piperacillin/Tazobactam 3.375 GM in Sodium Chloride 0.9% 100 ML IVPB SCH ×2 (08:50→20:02)
[2021-07-03 08:58] LABS: Hemoglobin 10.6 g/dL (12.0-16.0); Mean Corpuscular HGB CONC 31.6 g/dL (32.0-36.0); Mean Corpuscular Hemoglobin 29.4 pg (27.0-31.0); Mean Platelet Volume 10.6 fL (7.4-10.4); Platelet Count 275 thou/uL (130-400); RBC Distribution Width 23.8 % (11.5-14.5); Red Blood Cell (RBC) Count 3.61 mill/uL (4.20-5.40); White Blood Cell (WBC) Count 19.9 thou/uL (4.8-10.8)
[2021-07-03 09:09] LABS: Anion Gap 9 mmol/L (10-20); BUN (Urea Nitrogen) 42 mg/dL (9.8-20.1); Calc. Creatinine Clearance 26 mL/min (70-130); Calcium 7.7 mg/dL (7.8-10.44); Carbon Dioxide 19 mmol/L (23-31); Chloride 118 mmol/L (98-107); Glucose 75 mg/dL (80-115); Potassium 3.8 mmol/L (3.5-5.1); Sodium 142 mmol/L (136-145)
[2021-07-03 09:31] LABS: Anisocytosis MODERATE=16-30 cells (100X) (0-5/hpf); Band 4 % (5-11); Lymphocytes 15 % (21-51); MDiff Complete? YES; Metamyelocyte 3 % (0-0); Monocytes 5 % (0-10); Myelocyte 5 % (0-0); Neutrophil 68 % (42-75); Platelet Morphology Comment Appears Adequate; Polychromasia SLIGHT = 2-3 cells (100X) (0-2/hpf)
[2021-07-03] MEDS: Ondansetron PF 4 MG/2 ML Vial IVP PRN (12:32)
[2021-07-03] MEDS: Dextrose 5% in Water 1,000 ML IV SCH (13:22)
[2021-07-03] MEDS ORDERED: GoLYTELY 4,000 ml Bottle PO SCH (14:00)
[2021-07-03] MEDS ORDERED: Ondansetron HCl/PF 4 MG in Sodium Chloride 0.9% 50 ML IVPB SCH (15:00)
[2021-07-03] MEDS ORDERED: Ondansetron PF 4 MG/2 ML Vial IVP SCH (16:45)
[2021-07-03] MEDS: Atorvastatin Calcium 10 MG TAB PO SCH (20:02)
[2021-07-04] MEDS: Ondansetron PF 4 MG/2 ML Vial IVP PRN (00:16)
[2021-07-04] MEDS: Dextrose 5% in Water 1,000 ML IV SCH ×2 (01:25→17:45)
[2021-07-04 07:43] LABS: Hemoglobin 10.8 g/dL (12.0-16.0); Mean Corpuscular Hemoglobin 31.2 pg (27.0-31.0); Mean Corpuscular Volume 94.5 fL (78.0-98.0); Mean Platelet Volume 10.4 fL (7.4-10.4); Platelet Count 251 thou/uL (130-400); RBC Distribution Width 23.2 % (11.5-14.5); Red Blood Cell (RBC) Count 3.44 mill/uL (4.20-5.40); White Blood Cell (WBC) Count 19.9 thou/uL (4.8-10.8)
[2021-07-04 08:15] LABS: Anion Gap 11 mmol/L (10-20); BUN (Urea Nitrogen) 29 mg/dL (9.8-20.1); Calc. Creatinine Clearance 27 mL/min (70-130); Calcium 7.8 mg/dL (7.8-10.44); Carbon Dioxide 18 mmol/L (23-31); Chloride 114 mmol/L (98-107); Glucose 144 mg/dL (80-115); Potassium 3.5 mmol/L (3.5-5.1); Sodium 139 mmol/L (136-145)
[2021-07-04 08:39] LABS: Anisocytosis MODERATE=16-30 cells (100X) (0-5/hpf); Band 9 % (5-11); Lymphocytes 8 % (21-51); MDiff Complete? YES; Metamyelocyte 2 % (0-0); Monocytes 3 % (0-10); Myelocyte 1 % (0-0); Neutrophil 77 % (42-75); Nucleated RBC 1 % (0); Platelet Morphology Comment Appears Adequate; Polychromasia MODERATE = 3-4 cells (100X) (0-2/hpf)
[2021-07-04] MEDS: Piperacillin/Tazobactam 3.375 GM in Sodium Chloride 0.9% 100 ML IVPB SCH ×2 (08:55→20:48)
[2021-07-04] MEDS: Aspirin Chewable 81 MG TAB PO SCH (09:06)
[2021-07-04] MEDS: guaiFENesin ER 600 MG TAB PO SCH ×2 (09:06→20:47)
[2021-07-04] MEDS: Lantus 1000 UNITS/10 ML VIAL SC SCH ×2 (09:07→20:46)
[2021-07-04] MEDS: glyBURIDE 5 MG TAB PO SCH (09:07)
[2021-07-04] MEDS: Allopurinol 100 MG TAB PO SCH (09:07)
[2021-07-04] MEDS ORDERED: GoLYTELY 4,000 ml Bottle PO SCH (15:00)
[2021-07-04] MEDS: HumaLOG 300 UNITS/3 ML VIAL SC PRN (15:46)
[2021-07-04] MEDS: Atorvastatin Calcium 10 MG TAB PO SCH (20:47)
[2021-07-05] MEDS: Dextrose 5% in Water 1,000 ML IV SCH ×2 (04:38→20:34)
[2021-07-05 06:02] LABS: Hemoglobin 9.8 g/dL (12.0-16.0); Mean Corpuscular Hemoglobin 31.9 pg (27.0-31.0); Mean Corpuscular Volume 93.9 fL (78.0-98.0); Mean Platelet Volume 10.2 fL (7.4-10.4); Platelet Count 209 thou/uL (130-400); RBC Distribution Width 22.7 % (11.5-14.5); Red Blood Cell (RBC) Count 3.06 mill/uL (4.20-5.40); White Blood Cell (WBC) Count 12.2 thou/uL (4.8-10.8)
[2021-07-05 06:20] LABS: ALT (SGPT) 11 U/L (8-55); AST (SGOT) 9 U/L (5-34); Albumin 1.9 g/dL (3.4-4.8); Alkaline Phosphatase 60 U/L (40-110); Anion Gap 9 mmol/L (10-20); BUN (Urea Nitrogen) 21 mg/dL (9.8-20.1); Bilirubin, Total 0.6 mg/dL (0.2-1.2); Calc. Creatinine Clearance 29 mL/min (70-130); Calcium 7.1 mg/dL (7.8-10.44); Carbon Dioxide 17 mmol/L (23-31); Chloride 111 mmol/L (98-107); Globulin 1.6 g/dL (2.4-3.5); Glucose 118 mg/dL (80-115); Potassium 3.6 mmol/L (3.5-5.1); Protein, Total 3.5 g/dL (5.8-8.1); Sodium 133 mmol/L (136-145)
[2021-07-05 06:38] LABS: Band 2 % (5-11); Eosinophils 1 % (0-10); Lymphocytes 15 % (21-51); MDiff Complete? YES; Monocytes 10 % (0-10); Neutrophil 71 % (42-75); Platelet Morphology Comment Appears Adequate; Polychromasia MODERATE = 3-4 cells (100X) (0-2/hpf); Reactive Lymphocytes 1 % (0-10)
[2021-07-05] MEDS: guaiFENesin ER 600 MG TAB PO SCH ×2 (07:54→20:36)
[2021-07-05] MEDS: Allopurinol 100 MG TAB PO SCH (07:56)
[2021-07-05] MEDS: Piperacillin/Tazobactam 3.375 GM in Sodium Chloride 0.9% 100 ML IVPB SCH ×2 (07:56→20:35)
[2021-07-05] MEDS: Aspirin Chewable 81 MG TAB PO SCH (07:56)
[2021-07-05] MEDS: Atorvastatin Calcium 10 MG TAB PO SCH (20:36)
[2021-07-06 06:31] LABS: Hemoglobin 9.8 g/dL (12.0-16.0); Mean Corpuscular HGB CONC 32.7 g/dL (32.0-36.0); Mean Corpuscular Hemoglobin 30.9 pg (27.0-31.0); Mean Corpuscular Volume 94.3 fL (78.0-98.0); Mean Platelet Volume 10.2 fL (7.4-10.4); Platelet Count 209 thou/uL (130-400); RBC Distribution Width 22.4 % (11.5-14.5); Red Blood Cell (RBC) Count 3.17 mill/uL (4.20-5.40); White Blood Cell (WBC) Count 10.1 thou/uL (4.8-10.8)
[2021-07-06 06:48] LABS: ALT (SGPT) 12 U/L (8-55); AST (SGOT) 10 U/L (5-34); Albumin 1.8 g/dL (3.4-4.8); Alkaline Phosphatase 61 U/L (40-110); Anion Gap 11 mmol/L (10-20); BUN (Urea Nitrogen) 17 mg/dL (9.8-20.1); Bilirubin, Total 0.7 mg/dL (0.2-1.2); Calc. Creatinine Clearance 30 mL/min (70-130); Calcium 7.3 mg/dL (7.8-10.44); Carbon Dioxide 17 mmol/L (23-31); Chloride 110 mmol/L (98-107); Globulin 1.8 g/dL (2.4-3.5); Glucose 119 mg/dL (80-115); Potassium 3.9 mmol/L (3.5-5.1); Protein, Total 3.6 g/dL (5.8-8.1); Sodium 134 mmol/L (136-145)
[2021-07-06 06:49] LABS: Band 9 % (5-11); Eosinophils 2 % (0-10); Lymphocytes 10 % (21-51); MDiff Complete? YES; Monocytes 10 % (0-10); Myelocyte 1 % (0-0); Neutrophil 68 % (42-75)
[2021-07-06] MEDS ORDERED: glyBURIDE 5 MG TAB PO SCH (08:00)
[2021-07-06] MEDS: Piperacillin/Tazobactam 3.375 GM in Sodium Chloride 0.9% 100 ML IVPB SCH (08:26)
[2021-07-06] MEDS: Aspirin Chewable 81 MG TAB PO SCH (08:26)
[2021-07-06] MEDS: Allopurinol 100 MG TAB PO SCH (08:26)
[2021-07-06] MEDS: guaiFENesin ER 600 MG TAB PO SCH ×2 (08:26→21:01)
[2021-07-06] MEDS: Dextrose 5% in Water 1,000 ML IV SCH ×2 (12:50→18:18)
[2021-07-06] MEDS: Ondansetron PF 4 MG/2 ML Vial IVP PRN (13:23)
[2021-07-06] MEDS: Amoxicillin/Potassium Clav 500 MG TAB PO SCH (21:00)
[2021-07-06] MEDS: Atorvastatin Calcium 10 MG TAB PO SCH (21:00)
[2021-07-07 08:28] LABS: Hemoglobin 9.5 g/dL (12.0-16.0); Mean Corpuscular Hemoglobin 31.5 pg (27.0-31.0); Mean Corpuscular Volume 95.5 fL (78.0-98.0); Platelet Count 214 thou/uL (130-400); RBC Distribution Width 22.5 % (11.5-14.5); Red Blood Cell (RBC) Count 3.02 mill/uL (4.20-5.40); White Blood Cell (WBC) Count 8.2 thou/uL (4.8-10.8)
[2021-07-07 08:45] LABS: ALT (SGPT) 10 U/L (8-55); AST (SGOT) 10 U/L (5-34); Albumin 1.9 g/dL (3.4-4.8); Alkaline Phosphatase 61 U/L (40-110); Anion Gap 10 mmol/L (10-20); BUN (Urea Nitrogen) 13 mg/dL (9.8-20.1); Bilirubin, Total 0.6 mg/dL (0.2-1.2); Calc. Creatinine Clearance 35 mL/min (70-130); Carbon Dioxide 18 mmol/L (23-31); Chloride 112 mmol/L (98-107); Globulin 1.6 g/dL (2.4-3.5); Potassium 3.5 mmol/L (3.5-5.1); Protein, Total 3.5 g/dL (5.8-8.1); Sodium 136 mmol/L (136-145)
[2021-07-07 08:55] LABS: Glucose 56 mg/dL (80-115)
[2021-07-07] MEDS: Aspirin Chewable 81 MG TAB PO SCH (09:28)
[2021-07-07] MEDS: Amoxicillin/Potassium Clav 500 MG TAB PO SCH ×2 (09:28→20:35)
[2021-07-07] MEDS: Dextrose 5% in Water 1,000 ML IV SCH ×2 (09:28→23:45)
[2021-07-07] MEDS: Allopurinol 100 MG TAB PO SCH (09:28)
[2021-07-07] MEDS: guaiFENesin ER 600 MG TAB PO SCH ×2 (09:28→20:35)
[2021-07-07] MEDS: Ondansetron PF 4 MG/2 ML Vial IVP PRN (10:54)
[2021-07-07 10:59] LABS: Anisocytosis MODERATE=16-30 cells (100X) (0-5/hpf); Band 11 % (5-11); Eosinophils 2 % (0-10); Lymphocytes 18 % (21-51); MDiff Complete? YES; Monocytes 7 % (0-10); Neutrophil 61 % (42-75); Platelet Morphology Comment Appears Adequate
[2021-07-07] MEDS: Atorvastatin Calcium 10 MG TAB PO SCH (20:35)
[2021-07-08 06:30] LABS: ALT (SGPT) 9 U/L (8-55); AST (SGOT) 8 U/L (5-34); Albumin 1.9 g/dL (3.4-4.8); Alkaline Phosphatase 66 U/L (40-110); Anion Gap 8 mmol/L (10-20); BUN (Urea Nitrogen) 11 mg/dL (9.8-20.1); Bilirubin, Total 0.7 mg/dL (0.2-1.2); Calc. Creatinine Clearance 37 mL/min (70-130); Calcium 7.3 mg/dL (7.8-10.44); Carbon Dioxide 21 mmol/L (23-31); Chloride 106 mmol/L (98-107); Globulin 1.8 g/dL (2.4-3.5); Glucose 129 mg/dL (80-115); Potassium 3.3 mmol/L (3.5-5.1); Protein, Total 3.7 g/dL (5.8-8.1); Sodium 132 mmol/L (136-145)
[2021-07-08 07:45] LABS: Hemoglobin 9.1 g/dL (12.0-16.0); Mean Corpuscular HGB CONC 33.6 g/dL (32.0-36.0); Mean Corpuscular Hemoglobin 31.9 pg (27.0-31.0); Mean Platelet Volume 9.7 fL (7.4-10.4); Platelet Count 209 thou/uL (130-400); RBC Distribution Width 22.4 % (11.5-14.5); Red Blood Cell (RBC) Count 2.86 mill/uL (4.20-5.40); White Blood Cell (WBC) Count 9.3 thou/uL (4.8-10.8)
[2021-07-08 07:57] LABS: Anisocytosis MODERATE=16-30 cells (100X) (0-5/hpf); Band 16 % (5-11); Lymphocytes 10 % (21-51); MDiff Complete? YES; Monocytes 11 % (0-10); Neutrophil 62 % (42-75); Platelet Morphology Comment Appears Adequate; Polychromasia SLIGHT = 2-3 cells (100X) (0-2/hpf)
[2021-07-08] MEDS: guaiFENesin ER 600 MG TAB PO SCH (08:52)
[2021-07-08] MEDS: Aspirin Chewable 81 MG TAB PO SCH (08:52)
[2021-07-08] MEDS: Allopurinol 100 MG TAB PO SCH (08:52)
[2021-07-08] MEDS: Amoxicillin/Potassium Clav 500 MG TAB PO SCH (08:52)
[2021-07-08 09:14] VITALS: BP 109/70; TEMP 97.9
[2021-07-08 12:21] LABS: SARS-CoV-2 PCR by NAA DETECTED (NotDetected)
== END 2021-07-08 14:08 | disposition home health service (06) | DRG 871 ==
LOC: ERS 20:59 → IMCU/EMU 06-30 02:18 → T4-B 07-01 14:47
PROVIDERS: ADMIT Internal Medicine; ATTEND Family Medicine
PROC: 3E0333Z Introduction of Anti-inflammatory into Peripheral Vein, Percutaneous Approach (ICD-10-PCS; principal; 2021-06-30)
PROC: 30233N1 Transfusion of Nonautologous Red Blood Cells into Peripheral Vein, Percutaneous Approach (ICD-10-PCS; 2021-07-02)
PROC: 8E0ZXY6 Isolation (ICD-10-PCS; 2021-07-02)
DX: A41.89 Other specified sepsis (principal); U07.1 COVID-19; J12.82 Pneumonia due to coronavirus disease 2019; J96.01 Acute respiratory failure with hypoxia; D62 Acute posthemorrhagic anemia; N17.9 Acute kidney failure, unspecified; N18.4 Chronic kidney disease, stage 4 (severe); E87.1 Hypo-osmolality and hyponatremia; R65.20 Severe sepsis without septic shock; E86.0 Dehydration; I12.9 Hypertensive chronic kidney disease with stage 1 through stage 4 chronic kidney disease, or unspecified chronic kidney disease; E78.5 Hyperlipidemia, unspecified; E11.22 Type 2 diabetes mellitus with diabetic chronic kidney disease; E11.65 Type 2 diabetes mellitus with hyperglycemia; M19.90 Unspecified osteoarthritis, unspecified site; E87.5 Hyperkalemia; D63.1 Anemia in chronic kidney disease; Z53.20 Procedure and treatment not carried out because of patient's decision for unspecified reasons; Z79.899 Other long term (current) drug therapy; Z79.82 Long term (current) use of aspirin; Z79.84 Long term (current) use of oral hypoglycemic drugs; Z79.52 Long term (current) use of systemic steroids; Z90.710 Acquired absence of both cervix and uterus; Z87.891 Personal history of nicotine dependence
CPT/HCPCS: 36415; 36416; 36430; 71045; 80048; 80053; 81003; 82010; 82274; 82570; 82607; 82728; 82746; 82805; 83540; 83605; 83735; 84100; 84300; 84484; 85007; 85025; 85027; 86140; 86850; 86900; 86901; 87040; 87086; 93005; 96365; 96376; J1100; J1644; J1815; J2405; J2543; J3480; J3490; J7050; J7070; P9016; U0002; U0003; U0005

== ENCOUNTER 2022-02-23 11:05 | Outpatient (CLI) | payer MEDICARE | END 2022-02-23 11:06 | disposition home or self-care (01) | LOC: BICMAMMO 11:05 | PROVIDERS: ATTEND Family Medicine | DX: Z12.31 Encounter for screening mammogram for malignant neoplasm of breast (principal) | CPT/HCPCS: 77063; 77067 ==

== ENCOUNTER 2022-08-06 09:00 | Inpatient (IN) | payer MEDICARE ==
[2022-08-06 09:49] LABS: Hemoglobin 8.1 g/dL (12.0-16.0); Mean Corpuscular HGB CONC 31.7 g/dL (32.0-36.0); Mean Corpuscular Hemoglobin 29.6 pg (27.0-31.0); Mean Corpuscular Volume 93.5 fL (78.0-98.0); Mean Platelet Volume 10.6 fL (7.4-10.4); Platelet Count 346 thou/uL (130-400); RBC Distribution Width 16.6 % (11.5-14.5); Red Blood Cell (RBC) Count 2.72 mill/uL (4.20-5.40); White Blood Cell (WBC) Count 13.1 thou/uL (4.8-10.8)
[2022-08-06 10:04] LABS: MDiff Complete? YES
[2022-08-06 10:05] LABS: Band 37 % (5-11); Lymphocytes 8 % (21-51); Monocytes 1 % (0-10); Neutrophil 54 % (42-75); Platelet Morphology Comment Appears Adequate; Polychromasia SLIGHT = 2-3 cells (100X) (0-2/hpf)
[2022-08-06] MEDS ORDERED: Vancomycin 1 GM/200 ML BAG ONE (10:06)
[2022-08-06] MEDS ORDERED: Cefepime 2 GM VIAL ONE (10:06)
[2022-08-06 10:17] LABS: Bacteria/HPF None Seen HPF (None Seen); Bilirubin Negative (Negative); Blood, Urine Negative (Negative); Clarity Clear (Clear); Glucose, Urine (Dipstick) Greater than 1000 mg/dL (Negative); Ketone, Urine Negative (Negative); Leukocyte Negative Leu/uL (Negative); Nitrite Negative (Negative); Protein, Urine (Dipstick) 50 mg/dL (Neg-Trace); RBC/HPF 0-3 HPF (0-3); Specific Gravity, Urine 1.012 (1.002-1.036); Squamous Epithelial 0-3 HPF (0-3); Urobilinogen Normal mg/dL (Less than 2); WBC/HPF 0-3 HPF (0-3); pH, Urine 6.5 (5.0-9.0)
[2022-08-06 10:19] LABS: ALT (SGPT) 19 U/L (8-55); AST (SGOT) 26 U/L (5-34); Albumin 2.8 g/dL (3.4-4.8); Alkaline Phosphatase 254 U/L (40-110); Anion Gap 16 mmol/L (10-20); BUN (Urea Nitrogen) 48 mg/dL (9.8-20.1); Bilirubin, Total 0.7 mg/dL (0.2-1.2); Calc. Creatinine Clearance 0 mL/min (70-130); Calcium 8.7 mg/dL (7.8-10.44); Carbon Dioxide 23 mmol/L (23-31); Chloride 101 mmol/L (98-107); Estimated GFR 15; Globulin 2.5 g/dL (2.4-3.5); Glucose 296 mg/dL (83-110); Potassium 3.7 mmol/L (3.5-5.1); Protein, Total 5.3 g/dL (5.8-8.1); Sodium 136 mmol/L (136-145)
[2022-08-06 10:48] LABS: SARS-CoV-2 NAA Rapid Test Not Detected (NotDetected)
[2022-08-06] MEDS ORDERED: NOREPINEPHRINE 8 MG/250 ML-D5W 250 ML ONE (11:50)
[2022-08-06] MEDS ORDERED: Vancomycin HCl 1 GM in Sodium Chloride 0.9% 250 ML 300 ML IVPB SCH (12:59)
[2022-08-06] MEDS ORDERED: Ondansetron PF 4 MG/2 ML Vial IVP PRN (12:59)
[2022-08-06] MEDS ORDERED: Acetaminophen 325 MG TAB PO PRN (12:59)
[2022-08-06] MEDS ORDERED: NOREPINEPHRINE 8 MG/250 ML-D5W 250 ML IVPB SCH (13:00)
[2022-08-06] MEDS ORDERED: Dextrose 5% in Water 1,000 ML IV PRN (13:31)
[2022-08-06] MEDS ORDERED: HumaLOG 300 UNITS/3 ML VIAL SC PRN (13:31)
[2022-08-06] MEDS ORDERED: Dextrose 50% Abboject 50 ML SYRINGE SLOW IVP PRN (13:31)
[2022-08-06 13:33] LABS: Lactic Acid 1.7 mmol/L (0.5-2.2)
[2022-08-06 14:18] LABS: Hemoglobin A1c 9.6 % (4.0-6.0)
[2022-08-06 14:34] VITALS: BMI 25.4
[2022-08-06] MEDS ORDERED: FLU VACC QS2022-23(65YR UP)/PF 240 MCG/0.7 ML SYRINGE IM ONE (15:00)
[2022-08-06] MEDS ORDERED: Vancomycin Dose by Levels Sliding Scale (Wt <71) FS SCH (15:15)
[2022-08-06] MEDS ORDERED: Meropenem 1 GM in Sodium Chloride 0.9% 100 ML IVPB SCH (15:15)
[2022-08-06] MEDS: Heparin 5,000 UNITS/ML VIAL SC SCH ×2 (15:45→20:53)
[2022-08-06] MEDS: Meropenem 1 GM in Sodium Chloride 0.9% 100 ML IVPB SCH (15:56)
[2022-08-06 19:29] LABS: Creatinine, Urine 95.2 mg/dL (47-110)
[2022-08-06] MEDS: Famotidine 20 MG TAB PO SCH (20:54)
[2022-08-06] MEDS: HumaLOG 300 UNITS/3 ML VIAL SC PRN (20:54)
[2022-08-06 22:33] LABS: Legionella Urinary Ag Negative (Negative)
[2022-08-06 22:34] LABS: Strep pneumo Urine Ag NEGATIVE (NEGATIVE)
[2022-08-06] MEDS: Meropenem 500 MG in Sodium Chloride 0.9% 100 ML IVPB SCH (23:14)
[2022-08-07 05:12] LABS: Anion Gap 14 mmol/L (10-20); BUN (Urea Nitrogen) 46 mg/dL (9.8-20.1); Calc. Creatinine Clearance 17 mL/min (70-130); Calcium 8.8 mg/dL (7.8-10.44); Carbon Dioxide 23 mmol/L (23-31); Chloride 106 mmol/L (98-107); Estimated GFR 18; Glucose 138 mg/dL (83-110); Sodium 139 mmol/L (136-145)
[2022-08-07 05:19] LABS: Iron 11 ug/dL (50-170); Iron Binding Capacity, Total 180 mcg/dL (265-497)
[2022-08-07] MEDS ORDERED: Adenosine 6 MG/2 ML VIAL ONE (05:20)
[2022-08-07] MEDS ORDERED: Adenosine 6 MG/2 ML VIAL IVP SCH (05:27)
[2022-08-07 06:06] LABS: Band 27 % (5-11); Hemoglobin 7.5 g/dL (12.0-16.0); Hypochromia SLIGHT = 6-15 cells (100X) (0-5/hpf); Lymphocytes 4 % (21-51); MDiff Complete? YES; Mean Corpuscular HGB CONC 31.9 g/dL (32.0-36.0); Mean Corpuscular Hemoglobin 30.5 pg (27.0-31.0); Mean Corpuscular Volume 95.6 fL (78.0-98.0); Mean Platelet Volume 10.6 fL (7.4-10.4); Neutrophil 69 % (42-75); Nucleated RBC 1 % (0); Platelet Count 312 thou/uL (130-400); Platelet Morphology Comment Appears Adequate; RBC Distribution Width 16.7 % (11.5-14.5); Red Blood Cell (RBC) Count 2.45 mill/uL (4.20-5.40); White Blood Cell (WBC) Count 13.3 thou/uL (4.8-10.8)
[2022-08-07] MEDS: Lactated Ringer's 500 ML IV SCH ×2 (08:23→11:34)
[2022-08-07] MEDS: Heparin 5,000 UNITS/ML VIAL SC SCH ×3 (08:23→20:33)
[2022-08-07] MEDS ORDERED: Epoetin (ESRD) 10,000 UNITS/ML VIAL IVP SCH (10:00)
[2022-08-07] MEDS: Meropenem 500 MG in Sodium Chloride 0.9% 100 ML IVPB SCH ×2 (10:13→22:08)
[2022-08-07] MEDS ORDERED: Lactated Ringer's 500 ML IV SCH (13:00)
[2022-08-07] MEDS: HumaLOG 300 UNITS/3 ML VIAL SC PRN ×2 (18:09→20:38)
[2022-08-07] MEDS: Famotidine 20 MG TAB PO SCH (20:34)
[2022-08-08 05:04] LABS: Anion Gap 14 mmol/L (10-20); BUN (Urea Nitrogen) 48 mg/dL (9.8-20.1); Calc. Creatinine Clearance 17 mL/min (70-130); Calcium 8.3 mg/dL (7.8-10.44); Carbon Dioxide 23 mmol/L (23-31); Chloride 105 mmol/L (98-107); Estimated GFR 17; Glucose 69 mg/dL (83-110); Potassium 3.6 mmol/L (3.5-5.1); Sodium 138 mmol/L (136-145)
[2022-08-08 05:38] LABS: Hemoglobin 7.3 g/dL (12.0-16.0); Mean Corpuscular HGB CONC 32.2 g/dL (32.0-36.0); Mean Corpuscular Hemoglobin 31.1 pg (27.0-31.0); Mean Corpuscular Volume 96.5 fL (78.0-98.0); Mean Platelet Volume 10.7 fL (7.4-10.4); Platelet Count 239 thou/uL (130-400); RBC Distribution Width 16.5 % (11.5-14.5); Red Blood Cell (RBC) Count 2.34 mill/uL (4.20-5.40); White Blood Cell (WBC) Count 16.9 thou/uL (4.8-10.8)
[2022-08-08 05:39] LABS: Band 27 % (5-11); Lymphocytes 8 % (21-51); MDiff Complete? YES; Metamyelocyte 1 % (0-0); Monocytes 2 % (0-10); Myelocyte 1 % (0-0); Neutrophil 61 % (42-75); Platelet Morphology Comment Appears Adequate; RBC Morphology Normal
[2022-08-08] MEDS: cefTRIAXone\\ROCEPHIN 2 GM in Sodium Chloride 0.9% 100 ML IVPB SCH (09:01)
[2022-08-08] MEDS: Ferrous Gluconate 324 MG TAB PO SCH (09:05)
[2022-08-08] MEDS: Heparin 5,000 UNITS/ML VIAL SC SCH ×3 (09:05→20:25)
[2022-08-08] MEDS: Famotidine 20 MG TAB PO SCH (20:25)
[2022-08-09 06:11] LABS: Anion Gap 15 mmol/L (10-20); BUN (Urea Nitrogen) 51 mg/dL (9.8-20.1); Calc. Creatinine Clearance 15 mL/min (70-130); Calcium 8.4 mg/dL (7.8-10.44); Carbon Dioxide 20 mmol/L (23-31); Chloride 104 mmol/L (98-107); Estimated GFR 15; Glucose 70 mg/dL (83-110); Potassium 3.8 mmol/L (3.5-5.1); Sodium 135 mmol/L (136-145)
[2022-08-09 06:17] LABS: Band 40 % (5-11); Hemoglobin 7.7 g/dL (12.0-16.0); Hypochromia SLIGHT = 6-15 cells (100X) (0-5/hpf); Lymphocytes 13 % (21-51); MDiff Complete? YES; Mean Corpuscular HGB CONC 32.5 g/dL (32.0-36.0); Mean Corpuscular Hemoglobin 31.5 pg (27.0-31.0); Mean Corpuscular Volume 97.1 fL (78.0-98.0); Mean Platelet Volume 11.2 fL (7.4-10.4); Monocytes 4 % (0-10); Neutrophil 43 % (42-75); Platelet Count 220 thou/uL (130-400); Platelet Morphology Comment Appears Adequate; RBC Distribution Width 16.8 % (11.5-14.5); Red Blood Cell (RBC) Count 2.45 mill/uL (4.20-5.40); White Blood Cell (WBC) Count 14.9 thou/uL (4.8-10.8)
[2022-08-09] MEDS: Aspirin Chewable 81 MG TAB PO SCH (09:39)
[2022-08-09] MEDS: Calcitriol 0.25 MCG CAP PO SCH (09:39)
[2022-08-09] MEDS: Allopurinol 300 MG TAB PO SCH (09:39)
[2022-08-09] MEDS: cefTRIAXone\\ROCEPHIN 2 GM in Sodium Chloride 0.9% 100 ML IVPB SCH (09:39)
[2022-08-09] MEDS: Ferrous Gluconate 324 MG TAB PO SCH (09:39)
[2022-08-09] MEDS: Heparin 5,000 UNITS/ML VIAL SC SCH ×3 (09:39→21:26)
[2022-08-09] MEDS: HumaLOG 300 UNITS/3 ML VIAL SC PRN ×2 (12:29→18:04)
[2022-08-09] MEDS: Atorvastatin Calcium 10 MG TAB PO SCH (21:26)
[2022-08-09] MEDS: Famotidine 20 MG TAB PO SCH (21:26)
[2022-08-10] MEDS: Heparin 5,000 UNITS/ML VIAL SC SCH ×3 (09:41→21:41)
[2022-08-10] MEDS: Aspirin Chewable 81 MG TAB PO SCH (09:41)
[2022-08-10] MEDS: Ferrous Gluconate 324 MG TAB PO SCH (09:42)
[2022-08-10] MEDS: cefTRIAXone\\ROCEPHIN 2 GM in Sodium Chloride 0.9% 100 ML IVPB SCH (09:42)
[2022-08-10] MEDS: Allopurinol 300 MG TAB PO SCH (09:42)
[2022-08-10] MEDS: Calcitriol 0.25 MCG CAP PO SCH (09:42)
[2022-08-10 11:18] LABS: Hemoglobin 7.5 g/dL (12.0-16.0); Mean Corpuscular HGB CONC 31.6 g/dL (32.0-36.0); Mean Corpuscular Hemoglobin 30.4 pg (27.0-31.0); Mean Corpuscular Volume 96.2 fL (78.0-98.0); Mean Platelet Volume 11.4 fL (7.4-10.4); Platelet Count 175 thou/uL (130-400); RBC Distribution Width 16.7 % (11.5-14.5); Red Blood Cell (RBC) Count 2.49 mill/uL (4.20-5.40); White Blood Cell (WBC) Count 10.1 thou/uL (4.8-10.8)
[2022-08-10 11:30] LABS: Anion Gap 13 mmol/L (10-20); BUN (Urea Nitrogen) 48 mg/dL (9.8-20.1); Calc. Creatinine Clearance 15 mL/min (70-130); Calcium 8.8 mg/dL (7.8-10.44); Carbon Dioxide 23 mmol/L (23-31); Chloride 103 mmol/L (98-107); Estimated GFR 15; Glucose 306 mg/dL (83-110); Potassium 4.1 mmol/L (3.5-5.1); Sodium 135 mmol/L (136-145)
[2022-08-10] MEDS: HumaLOG 300 UNITS/3 ML VIAL SC PRN ×2 (11:35→17:34)
[2022-08-10 12:52] LABS: Band 32 % (5-11); Eosinophils 1 % (0-10); Hypochromia SLIGHT = 6-15 cells (100X) (0-5/hpf); Lymphocytes 15 % (21-51); MDiff Complete? YES; Metamyelocyte 2 % (0-0); Monocytes 16 % (0-10); Myelocyte 2 % (0-0); Neutrophil 34 % (42-75); Platelet Morphology Comment Appears Adequate; Polychromasia SLIGHT = 2-3 cells (100X) (0-2/hpf); RBC Morphology Normal
[2022-08-10] MEDS: Atorvastatin Calcium 10 MG TAB PO SCH (21:41)
[2022-08-10] MEDS: Famotidine 20 MG TAB PO SCH (21:41)
[2022-08-11 04:57] LABS: Anion Gap 13 mmol/L (10-20); BUN (Urea Nitrogen) 42 mg/dL (9.8-20.1); Calc. Creatinine Clearance 18 mL/min (70-130); Carbon Dioxide 20 mmol/L (23-31); Chloride 105 mmol/L (98-107); Estimated GFR 18; Glucose 154 mg/dL (83-110); Potassium 3.9 mmol/L (3.5-5.1); Sodium 134 mmol/L (136-145)
[2022-08-11 05:21] LABS: Band 24 % (5-11); Hemoglobin 7.5 g/dL (12.0-16.0); Hypochromia SLIGHT = 6-15 cells (100X) (0-5/hpf); Lymphocytes 9 % (21-51); MDiff Complete? YES; Mean Corpuscular HGB CONC 31.8 g/dL (32.0-36.0); Mean Corpuscular Volume 94.6 fL (78.0-98.0); Mean Platelet Volume 11.3 fL (7.4-10.4); Monocytes 3 % (0-10); Neutrophil 59 % (42-75); Platelet Count 172 thou/uL (130-400); Platelet Morphology Comment Appears Adequate; RBC Distribution Width 16.7 % (11.5-14.5); Reactive Lymphocytes 3 % (0-10); Red Blood Cell (RBC) Count 2.49 mill/uL (4.20-5.40); White Blood Cell (WBC) Count 10.1 thou/uL (4.8-10.8)
[2022-08-11] MEDS: Allopurinol 300 MG TAB PO SCH (09:35)
[2022-08-11] MEDS: Heparin 5,000 UNITS/ML VIAL SC SCH ×3 (09:35→20:29)
[2022-08-11] MEDS: Calcitriol 0.25 MCG CAP PO SCH (09:35)
[2022-08-11] MEDS: Ferrous Gluconate 324 MG TAB PO SCH (09:35)
[2022-08-11] MEDS: cefTRIAXone\\ROCEPHIN 2 GM in Sodium Chloride 0.9% 100 ML IVPB SCH (09:35)
[2022-08-11] MEDS: Aspirin Chewable 81 MG TAB PO SCH (09:35)
[2022-08-11] MEDS: HumaLOG 300 UNITS/3 ML VIAL SC PRN ×2 (15:11→17:03)
[2022-08-11] MEDS: Famotidine 20 MG TAB PO SCH (20:28)
[2022-08-11] MEDS: Atorvastatin Calcium 10 MG TAB PO SCH (20:29)
[2022-08-11] MEDS: metroNIDAZOLE 500 MG in Premix Bag 1 BAG IVPB SCH (22:00)
[2022-08-12 05:40] LABS: MDiff Complete? YES
[2022-08-12 05:41] LABS: Band 2 % (5-11); Eosinophils 3 % (0-10); Hemoglobin 7.7 g/dL (12.0-16.0); Lymphocytes 17 % (21-51); Mean Corpuscular HGB CONC 32.3 g/dL (32.0-36.0); Mean Corpuscular Hemoglobin 30.5 pg (27.0-31.0); Mean Corpuscular Volume 94.5 fL (78.0-98.0); Mean Platelet Volume 11.2 fL (7.4-10.4); Metamyelocyte 1 % (0-0); Monocytes 4 % (0-10); Myelocyte 1 % (0-0); Neutrophil 72 % (42-75); Platelet Count 200 thou/uL (130-400); Platelet Morphology Comment Appears Adequate; RBC Distribution Width 16.8 % (11.5-14.5); RBC Morphology Normal; Red Blood Cell (RBC) Count 2.51 mill/uL (4.20-5.40); White Blood Cell (WBC) Count 11.8 thou/uL (4.8-10.8)
[2022-08-12 06:07] LABS: ALT (SGPT) 9 U/L (8-55); AST (SGOT) 11 U/L (5-34); Albumin 2.4 g/dL (3.4-4.8); Alkaline Phosphatase 127 U/L (40-110); Anion Gap 14 mmol/L (10-20); BUN (Urea Nitrogen) 32 mg/dL (9.8-20.1); Bilirubin, Total 0.3 mg/dL (0.2-1.2); Calc. Creatinine Clearance 21 mL/min (70-130); Calcium 8.7 mg/dL (7.8-10.44); Carbon Dioxide 20 mmol/L (23-31); Chloride 105 mmol/L (98-107); Estimated GFR 21; Globulin 3.1 g/dL (2.4-3.5); Glucose 162 mg/dL (83-110); Potassium 3.6 mmol/L (3.5-5.1); Protein, Total 5.5 g/dL (5.8-8.1); Sodium 135 mmol/L (136-145)
[2022-08-12] MEDS: metroNIDAZOLE 500 MG in Premix Bag 1 BAG IVPB SCH ×2 (06:50→16:20)
[2022-08-12] MEDS: Allopurinol 300 MG TAB PO SCH (08:36)
[2022-08-12] MEDS: Calcitriol 0.25 MCG CAP PO SCH (08:36)
[2022-08-12] MEDS: Aspirin Chewable 81 MG TAB PO SCH (08:36)
[2022-08-12] MEDS: Ferrous Gluconate 324 MG TAB PO SCH (08:36)
[2022-08-12] MEDS: cefTRIAXone\\ROCEPHIN 2 GM in Sodium Chloride 0.9% 100 ML IVPB SCH (08:37)
[2022-08-12] MEDS: Heparin 5,000 UNITS/ML VIAL SC SCH ×3 (08:37→20:19)
[2022-08-12] MEDS: HumaLOG 300 UNITS/3 ML VIAL SC PRN (17:25)
[2022-08-12] MEDS: Famotidine 20 MG TAB PO SCH (20:19)
[2022-08-12] MEDS: Atorvastatin Calcium 10 MG TAB PO SCH (20:19)
[2022-08-12] MEDS: metroNIDAZOLE 500 MG TAB PO SCH (20:20)
[2022-08-12] MEDS ORDERED: Cefdinir 300 MG CAP PO SCH (21:00)
[2022-08-12] MEDS ORDERED: Cefdinir 125 MG/5 ML Oral Suspension PO SCH (21:30)
[2022-08-13 05:14] LABS: ALT (SGPT) 7 U/L (8-55); AST (SGOT) 12 U/L (5-34); Albumin 2.4 g/dL (3.4-4.8); Alkaline Phosphatase 119 U/L (40-110); Bilirubin, Direct 0.2 mg/dL (0.1-0.3); Bilirubin, Total 0.3 mg/dL (0.2-1.2); Protein, Total 5.6 g/dL (5.8-8.1)
[2022-08-13 05:28] LABS: Band 8 % (5-11); Hemoglobin 7.4 g/dL (12.0-16.0); Hypochromia SLIGHT = 6-15 cells (100X) (0-5/hpf); Lymphocytes 26 % (21-51); MDiff Complete? YES; Mean Corpuscular HGB CONC 33.6 g/dL (32.0-36.0); Mean Corpuscular Hemoglobin 31.7 pg (27.0-31.0); Mean Corpuscular Volume 94.5 fL (78.0-98.0); Mean Platelet Volume 11.2 fL (7.4-10.4); Monocytes 4 % (0-10); Neutrophil 61 % (42-75); Nucleated RBC 1 % (0); Platelet Count 209 thou/uL (130-400); Platelet Morphology Comment Appears Adequate; RBC Distribution Width 16.9 % (11.5-14.5); Reactive Lymphocytes 1 % (0-10); Red Blood Cell (RBC) Count 2.33 mill/uL (4.20-5.40); White Blood Cell (WBC) Count 11.2 thou/uL (4.8-10.8)
[2022-08-13] MEDS ORDERED: Cefdinir 125 MG/5 ML Oral Suspension PO SCH (09:00)
[2022-08-13] MEDS: Calcitriol 0.25 MCG CAP PO SCH (09:32)
[2022-08-13] MEDS: Allopurinol 300 MG TAB PO SCH (09:32)
[2022-08-13] MEDS: Ferrous Gluconate 324 MG TAB PO SCH (09:32)
[2022-08-13] MEDS: metroNIDAZOLE 500 MG TAB PO SCH (09:33)
[2022-08-13] MEDS: Heparin 5,000 UNITS/ML VIAL SC SCH (09:33)
[2022-08-13] MEDS: Aspirin Chewable 81 MG TAB PO SCH (09:33)
[2022-08-13 12:31] VITALS: BP 154/73; TEMP 97.9
[2022-08-13] MEDS: HumaLOG 300 UNITS/3 ML VIAL SC PRN (13:45)
== END 2022-08-13 15:00 | disposition home or self-care (01) | DRG 871 ==
LOC: SUATTDRO 09:00 → ERS 09:00 → CCU 13:47 → 2NO 08-08 14:19
PROVIDERS: ADMIT Internal Medicine; ATTEND Hospitalist
PROC: 02HV33Z Insertion of Infusion Device into Superior Vena Cava, Percutaneous Approach (ICD-10-PCS; principal; 2022-08-06)
DX: A41.51 Sepsis due to Escherichia coli [E. coli] (principal); J96.01 Acute respiratory failure with hypoxia; K75.0 Abscess of liver; R65.21 Severe sepsis with septic shock; N18.4 Chronic kidney disease, stage 4 (severe); N17.9 Acute kidney failure, unspecified; I47.1 Supraventricular tachycardia; J90 Pleural effusion, not elsewhere classified; I12.9 Hypertensive chronic kidney disease with stage 1 through stage 4 chronic kidney disease, or unspecified chronic kidney disease; E11.22 Type 2 diabetes mellitus with diabetic chronic kidney disease; R62.7 Adult failure to thrive; N73.9 Female pelvic inflammatory disease, unspecified; K80.20 Calculus of gallbladder without cholecystitis without obstruction; I95.9 Hypotension, unspecified; D17.71 Benign lipomatous neoplasm of kidney; D17.79 Benign lipomatous neoplasm of other sites; N83.209 Unspecified ovarian cyst, unspecified side; D63.1 Anemia in chronic kidney disease; K83.8 Other specified diseases of biliary tract; Z90.49 Acquired absence of other specified parts of digestive tract; E55.9 Vitamin D deficiency, unspecified; K52.9 Noninfective gastroenteritis and colitis, unspecified; M10.9 Gout, unspecified; E78.5 Hyperlipidemia, unspecified; M19.90 Unspecified osteoarthritis, unspecified site; Z86.16 Personal history of COVID-19; E11.65 Type 2 diabetes mellitus with hyperglycemia; Z90.710 Acquired absence of both cervix and uterus; Z68.26 Body mass index [BMI] 26.0-26.9, adult
CPT/HCPCS: 36415; 36416; 36556; 51702; 71045; 74176; 74181; 76705; 76856; 80048; 80053; 80076; 81003; 81015; 82570; 82728; 83036; 83540; 83550; 83605; 83970; 84145; 84156; 85025; 87040; 87070; 87077; 87081; 87149; 87186; 87205; 87430; 87449; 87811; 87899; 93005; 93010; 93306; 94760; 96365; 96375; J0153; J0692; J0696; J1644; J1815; J2185; J2405; J3370; J3490; J7120; Q4081

== ENCOUNTER 2022-10-15 09:36 | Outpatient (CLI) | payer MEDICARE | END 2022-10-15 09:37 | disposition home or self-care (01) | LOC: MRI 09:36 | PROVIDERS: ATTEND Internal Medicine Gastroenterology | DX: K75.0 Abscess of liver (principal); K83.8 Other specified diseases of biliary tract; D63.8 Anemia in other chronic diseases classified elsewhere | CPT/HCPCS: 74183; 82565 ==

== ENCOUNTER 2022-12-22 11:37 | Inpatient (IN) | payer MEDICARE ==
[2022-12-22] MEDS ORDERED: Erythromycin Base 0.5% Oint 1 GM TUBE ONE (12:12)
[2022-12-22 12:43] LABS: Hemoglobin 8.3 g/dL (12.0-16.0); Mean Corpuscular HGB CONC 31.1 g/dL (32.0-36.0); Mean Corpuscular Hemoglobin 29.2 pg (27.0-31.0); Mean Corpuscular Volume 93.9 fl (78.0-98.0); Platelet Count 512 10x3/uL (130-400); RBC Distribution Width 16.5 % (11.5-14.5); Red Blood Cell (RBC) Count 2.84 mill/uL (4.20-5.40); White Blood Cell (WBC) Count 29.6 10x3/uL (4.8-10.8)
[2022-12-22 13:01] LABS: SARS-CoV-2 NAA Rapid Test Not Detected (NotDetected)
[2022-12-22 13:02] LABS: INR-International Normal Ratio 1.2; PTT 36.8 sec (22.9-36.1); Prothrombin Time 15.7 sec (12.0-14.7)
[2022-12-22 13:02] LABS: Band 14 % (5-11); Eosinophils 1 % (0-10); Hypochromia SLIGHT = 6-15 cells (100X) (0-5/hpf); Lymphocytes 7 % (21-51); MDiff Complete? YES; Monocytes 10 % (0-10); Neutrophil 66 % (42-75); Platelet Morphology Comment Appears Increased; Polychromasia SLIGHT = 2-3 cells (100X) (0-2/hpf)
[2022-12-22 13:04] LABS: ALT (SGPT) 8 U/L (8-55); AST (SGOT) 20 U/L (5-34); Albumin 3.4 g/dL (3.4-4.8); Alkaline Phosphatase 170 U/L (40-110); Anion Gap 19 mmol/L (10-20); BUN (Urea Nitrogen) 59 mg/dL (9.8-20.1); Bilirubin, Total 0.6 mg/dL (0.2-1.2); CK (CPK) 26 U/L (29-168); Calc. Creatinine Clearance 0 mL/min (70-130); Calcium 10.3 mg/dL (7.8-10.44); Carbon Dioxide 23 mmol/L (23-31); Chloride 93 mmol/L (98-107); Estimated GFR 12; Globulin 4.9 g/dL (2.4-3.5); Glucose 385 mg/dL (83-110); Magnesium 1.6 mg/dL (1.6-2.6); Potassium 4.1 mmol/L (3.5-5.1); Protein, Total 8.3 g/dL (5.8-8.1); Sodium 131 mmol/L (136-145)
[2022-12-22] MEDS ORDERED: Azithromycin 500 MG VIAL ONE (13:19)
[2022-12-22 13:23] LABS: CKMB 0.9 ng/mL (0-6.6)
[2022-12-22] MEDS ORDERED: Aspirin Chewable 81 MG TAB ONE (13:45)
[2022-12-22 13:54] LABS: Actual Bicarbonate (HCO3v) 27 mEq/L (22-28); Analyzer IN Cardio ER; Base Excess 2.5 mEq/L (-2.0 to +3.0); Calcium, Ionized (venous) 1.17 mmol/L (1.16-1.32); Chloride (VBG) 95 mmol/L (98-106); Hemoglobin (Hb) 7.9 g/dL (11.7-16.1); Potassium (VBG) 4.02 mmol/L (3.70-5.30); Sodium 130.2 mmol/L (133-146); pH (venous) 7.46 (7.32-7.43)
[2022-12-22 14:10] LABS: Bacteria/HPF None Seen HPF (None Seen); Bilirubin Negative (Negative); Blood, Urine Trace (Negative); Clarity Clear (Clear); Glucose, Urine (Dipstick) 300 mg/dL (Negative); Ketone, Urine Negative (Negative); Leukocyte 500 Leu/uL (Negative); Nitrite Negative (Negative); Protein, Urine (Dipstick) 20 mg/dL (Neg-Trace); RBC/HPF 0-3 HPF (0-3); Squamous Epithelial 0-3 HPF (0-3); Urobilinogen Normal mg/dL (Less than 2); WBC/HPF 21-50 HPF (0-3); pH, Urine 5.5 (5.0-9.0)
[2022-12-22] MEDS ORDERED: Calcium Carbonate 500 MG ChewTAB PO PRN (14:36)
[2022-12-22] MEDS ORDERED: Senokot S 8.6-50 MG TAB PO PRN (14:36)
[2022-12-22] MEDS ORDERED: Ondansetron PF 4 MG/2 ML Vial IVP PRN (14:36)
[2022-12-22] MEDS ORDERED: Acetaminophen 325 MG TAB PO PRN (14:36)
[2022-12-22] MEDS ORDERED: Benzonatate 100 MG CAP PO PRN (14:39)
[2022-12-22] MEDS ORDERED: cefTRIAXone\\ROCEPHIN 2 GM VIAL ONE (14:40)
[2022-12-22] MEDS ORDERED: Ipratropium/Albuterol 3 ML NEB NEB PRN (14:40)
[2022-12-22] MEDS ORDERED: HumaLOG 300 UNITS/3 ML VIAL SC PRN ×2 (14:45)
[2022-12-22] MEDS ORDERED: Cefepime 1 GM in Sodium Chloride 0.9% 100 ML IVPB SCH (14:45)
[2022-12-22] MEDS ORDERED: Dextrose 5% in Water 1,000 ML IV PRN (14:45)
[2022-12-22] MEDS ORDERED: Dextrose 50% Abboject 50 ML SYRINGE SLOW IVP PRN (14:45)
[2022-12-22 15:32] LABS: Lactic Acid 1.3 mmol/L (0.5-2.2)
[2022-12-22 15:59] LABS: Troponin I 0.026 ng/mL (< 0.028)
[2022-12-22 16:28] VITALS: BMI 24.1
[2022-12-22] MEDS: Heparin 5,000 UNITS/ML VIAL SC SCH ×2 (16:43→21:46)
[2022-12-22] MEDS: Sodium Chloride 0.9% 1,000 ML IV SCH (16:44)
[2022-12-22 19:04] LABS: Troponin I 0.024 ng/mL (< 0.028)
[2022-12-22] MEDS: Erythromycin Base 0.5% Oint 1 GM TUBE EA EYE SCH (21:45)
[2022-12-22] MEDS: Atorvastatin Calcium 10 MG TAB PO SCH (21:46)
[2022-12-23] MEDS: Sodium Chloride 0.9% 1,000 ML IV SCH ×2 (04:02→11:42)
[2022-12-23 05:15] LABS: Hemoglobin 6.9 g/dL (12.0-16.0); Mean Corpuscular HGB CONC 32.2 g/dL (32.0-36.0); Mean Corpuscular Hemoglobin 30.6 pg (27.0-31.0); Mean Corpuscular Volume 95.2 fl (78.0-98.0); Mean Platelet Volume 9.7 fL (7.4-10.4); Platelet Count 424 10x3/uL (130-400); RBC Distribution Width 16.6 % (11.5-14.5); Red Blood Cell (RBC) Count 2.25 mill/uL (4.20-5.40); White Blood Cell (WBC) Count 22.8 10x3/uL (4.8-10.8)
[2022-12-23 05:31] LABS: ALT (SGPT) 9 U/L (8-55); AST (SGOT) 21 U/L (5-34); Albumin 2.4 g/dL (3.4-4.8); Alkaline Phosphatase 129 U/L (40-110); Anion Gap 12 mmol/L (10-20); BUN (Urea Nitrogen) 54 mg/dL (9.8-20.1); Bilirubin, Total 0.3 mg/dL (0.2-1.2); Calc. Creatinine Clearance 15 mL/min (70-130); Calcium 9.5 mg/dL (7.8-10.44); Carbon Dioxide 26 mmol/L (23-31); Chloride 103 mmol/L (98-107); Estimated GFR 16; Globulin 3.8 g/dL (2.4-3.5); Glucose 61 mg/dL (83-110); Magnesium 1.6 mg/dL (1.6-2.6); Potassium 3.4 mmol/L (3.5-5.1); Protein, Total 6.2 g/dL (5.8-8.1); Sodium 138 mmol/L (136-145)
[2022-12-23 06:07] LABS: Anisocytosis SLIGHT = 6-15 cells (100X) (0-5/hpf); Band 3 % (5-11); Large Platelets SLIGHT; Lymphocytes 7 % (21-51); MDiff Complete? YES; Metamyelocyte 1 % (0-0); Monocytes 6 % (0-10); Neutrophil 83 % (42-75); Platelet Morphology Comment Appears Increased; Polychromasia SLIGHT = 2-3 cells (100X) (0-2/hpf)
[2022-12-23] MEDS: Calcitriol 0.25 MCG CAP PO SCH (09:42)
[2022-12-23] MEDS: Ferrous Gluconate 324 MG TAB PO SCH (09:42)
[2022-12-23] MEDS: Aspirin Chewable 81 MG TAB PO SCH (09:43)
[2022-12-23] MEDS: Erythromycin Base 0.5% Oint 1 GM TUBE EA EYE SCH ×2 (09:43→21:31)
[2022-12-23] MEDS ORDERED: HumaLOG 300 UNITS/3 ML VIAL SC PRN (09:45)
[2022-12-23] MEDS ORDERED: Potassium Chloride 20 MEQ TAB PO SCH (10:00)
[2022-12-23] MEDS ORDERED: Magnesium 2 GM/50 ML(in water) 2 GM in Premix Bag 1 BAG IVPB SCH (10:00)
[2022-12-23] MEDS ORDERED: Electrolyte Replacement Protocol 1 EACH FS SCH (10:00)
[2022-12-23] MEDS: Azithromycin 500 MG in Sodium Chloride 0.9% 250 ML 250 ML IVPB SCH (10:45)
[2022-12-23] MEDS: Heparin 5,000 UNITS/ML VIAL SC SCH (10:58)
[2022-12-23 11:37] LABS: Legionella Urinary Ag Negative (Negative); Strep pneumo Urine Ag NEGATIVE (NEGATIVE)
[2022-12-23 11:38] LABS: Iron 14 ug/dL (50-170); Iron Binding Capacity, Total 141 mcg/dL (265-497)
[2022-12-23] MEDS: Cefepime 1 GM in Sodium Chloride 0.9% 100 ML IVPB SCH (13:36)
[2022-12-23] MEDS ORDERED: D5 1/2 NS w/20 mEq KCL 1,000 ML IV SCH (16:00)
[2022-12-23] MEDS ORDERED: Ipratropium/Albuterol 3 ML NEB NEB PRN (16:13)
[2022-12-23] MEDS: Ipratropium/Albuterol 3 ML NEB NEB SCH ×2 (19:00→23:58)
[2022-12-23] MEDS: Multivit, Therapeutic 1 TAB PO SCH (21:28)
[2022-12-23] MEDS: guaiFENesin ER 600 MG TAB PO SCH (21:28)
[2022-12-23] MEDS: Atorvastatin Calcium 10 MG TAB PO SCH (21:28)
[2022-12-23] MEDS: Folic Acid 1 MG TAB PO SCH (21:28)
[2022-12-23] MEDS: Cyanocobalamin (Vitamin B-12) 1,000 MCG TAB PO SCH (21:28)
[2022-12-24 04:56] LABS: Hemoglobin 8.1 g/dL (12.0-16.0); Mean Corpuscular Hemoglobin 31.3 pg (27.0-31.0); Mean Corpuscular Volume 94.9 fl (78.0-98.0); Mean Platelet Volume 9.4 fL (7.4-10.4); Platelet Count 449 10x3/uL (130-400); RBC Distribution Width 16.1 % (11.5-14.5); Red Blood Cell (RBC) Count 2.59 mill/uL (4.20-5.40); White Blood Cell (WBC) Count 20.4 10x3/uL (4.8-10.8)
[2022-12-24 05:19] LABS: Reticulocyte Count 1.1 % (0.5-1.5)
[2022-12-24 05:35] LABS: Band 17 % (5-11); Lymphocytes 12 % (21-51); MDiff Complete? YES; Monocytes 11 % (0-10); Myelocyte 1 % (0-0); Neutrophil 59 % (42-75); Platelet Morphology Comment Appears Increased
[2022-12-24 05:44] LABS: ALT (SGPT) 12 U/L (8-55); AST (SGOT) 27 U/L (5-34); Albumin 2.2 g/dL (3.4-4.8); Alkaline Phosphatase 133 U/L (40-110); Anion Gap 12 mmol/L (10-20); BUN (Urea Nitrogen) 50 mg/dL (9.8-20.1); Bilirubin, Total 0.8 mg/dL (0.2-1.2); Calc. Creatinine Clearance 17 mL/min (70-130); Calcium 9.4 mg/dL (7.8-10.44); Carbon Dioxide 23 mmol/L (23-31); Chloride 104 mmol/L (98-107); Estimated GFR 19; Globulin 3.9 g/dL (2.4-3.5); Glucose 37 mg/dL (83-110); Potassium 3.8 mmol/L (3.5-5.1); Protein, Total 6.1 g/dL (5.8-8.1); Sodium 135 mmol/L (136-145)
[2022-12-24] MEDS ORDERED: D5 1/2 NS w/20 mEq KCL 1,000 ML IV SCH (08:15)
[2022-12-24] MEDS: Calcitriol 0.25 MCG CAP PO SCH (08:20)
[2022-12-24] MEDS: guaiFENesin ER 600 MG TAB PO SCH ×2 (08:20→20:52)
[2022-12-24] MEDS: Aspirin Chewable 81 MG TAB PO SCH (08:20)
[2022-12-24] MEDS: Ferrous Gluconate 324 MG TAB PO SCH (08:20)
[2022-12-24] MEDS: Erythromycin Base 0.5% Oint 1 GM TUBE EA EYE SCH ×2 (08:21→20:53)
[2022-12-24] MEDS: Ipratropium/Albuterol 3 ML NEB NEB SCH ×4 (08:50→22:58)
[2022-12-24] MEDS: Azithromycin 500 MG in Sodium Chloride 0.9% 250 ML 250 ML IVPB SCH (10:47)
[2022-12-24] MEDS ORDERED: Allopurinol 300 MG TAB PO SCH (11:00)
[2022-12-24] MEDS: Cefepime 1 GM in Sodium Chloride 0.9% 100 ML IVPB SCH (14:08)
[2022-12-24] MEDS: Carvedilol 25 MG TAB PO SCH (20:50)
[2022-12-24] MEDS: Cyanocobalamin (Vitamin B-12) 1,000 MCG TAB PO SCH (20:50)
[2022-12-24] MEDS: Folic Acid 1 MG TAB PO SCH (20:52)
[2022-12-24] MEDS: Multivit, Therapeutic 1 TAB PO SCH (20:52)
[2022-12-24] MEDS: Atorvastatin Calcium 10 MG TAB PO SCH (20:52)
[2022-12-24] MEDS ORDERED: HumaLOG 300 UNITS/3 ML VIAL SC PRN (20:58)
[2022-12-24] MEDS: HumaLOG 300 UNITS/3 ML VIAL SC PRN (21:15)
[2022-12-25 07:03] LABS: Hemoglobin A1c 7.9 % (4.0-6.0)
[2022-12-25 07:04] LABS: Anion Gap 11 mmol/L (10-20); BUN (Urea Nitrogen) 41 mg/dL (9.8-20.1); Calc. Creatinine Clearance 20 mL/min (70-130); Calcium 9.6 mg/dL (7.8-10.44); Carbon Dioxide 24 mmol/L (23-31); Chloride 102 mmol/L (98-107); Estimated GFR 23; Glucose 194 mg/dL (83-110); Magnesium 1.8 mg/dL (1.6-2.6); Potassium 4.7 mmol/L (3.5-5.1); Sodium 132 mmol/L (136-145)
[2022-12-25 07:34] LABS: Band 13 % (5-11); Hemoglobin 8.6 g/dL (12.0-16.0); Hypochromia SLIGHT = 6-15 cells (100X) (0-5/hpf); Lymphocytes 4 % (21-51); MDiff Complete? YES; Mean Corpuscular HGB CONC 31.6 g/dL (32.0-36.0); Mean Corpuscular Hemoglobin 29.9 pg (27.0-31.0); Mean Corpuscular Volume 94.7 fl (78.0-98.0); Mean Platelet Volume 9.4 fL (7.4-10.4); Monocytes 3 % (0-10); Myelocyte 3 % (0-0); Neutrophil 71 % (42-75); Platelet Count 491 10x3/uL (130-400); Platelet Morphology Comment Appears Increased; Polychromasia SLIGHT = 2-3 cells (100X) (0-2/hpf); Reactive Lymphocytes 5 % (0-10); Red Blood Cell (RBC) Count 2.87 mill/uL (4.20-5.40); White Blood Cell (WBC) Count 19.5 10x3/uL (4.8-10.8)
[2022-12-25] MEDS: Ipratropium/Albuterol 3 ML NEB NEB SCH ×3 (07:40→18:42)
[2022-12-25] MEDS: Azithromycin 500 MG in Sodium Chloride 0.9% 250 ML 250 ML IVPB SCH (09:34)
[2022-12-25] MEDS: Carvedilol 25 MG TAB PO SCH ×2 (09:34→21:24)
[2022-12-25] MEDS: guaiFENesin ER 600 MG TAB PO SCH ×2 (09:35→21:24)
[2022-12-25] MEDS: Allopurinol 300 MG TAB PO SCH (09:35)
[2022-12-25] MEDS: Furosemide 40 MG TAB PO SCH (09:35)
[2022-12-25] MEDS: Aspirin Chewable 81 MG TAB PO SCH (09:35)
[2022-12-25] MEDS: Ferrous Gluconate 324 MG TAB PO SCH (09:35)
[2022-12-25] MEDS: Calcitriol 0.25 MCG CAP PO SCH (09:35)
[2022-12-25] MEDS: Erythromycin Base 0.5% Oint 1 GM TUBE EA EYE SCH ×2 (09:36→21:26)
[2022-12-25] MEDS: HumaLOG 300 UNITS/3 ML VIAL SC PRN ×3 (13:04→21:23)
[2022-12-25] MEDS: Cefepime 1 GM in Sodium Chloride 0.9% 100 ML IVPB SCH (13:04)
[2022-12-25] MEDS: Atorvastatin Calcium 10 MG TAB PO SCH (21:24)
[2022-12-25] MEDS: Multivit, Therapeutic 1 TAB PO SCH (21:24)
[2022-12-25] MEDS: Folic Acid 1 MG TAB PO SCH (21:24)
[2022-12-25] MEDS: Cyanocobalamin (Vitamin B-12) 1,000 MCG TAB PO SCH (21:24)
[2022-12-26] MEDS: Ipratropium/Albuterol 3 ML NEB NEB SCH ×4 (00:52→18:50)
[2022-12-26] MEDS: HumaLOG 300 UNITS/3 ML VIAL SC PRN ×3 (04:40→17:52)
[2022-12-26 08:52] LABS: Hemoglobin 8.4 g/dL (12.0-16.0); Mean Corpuscular HGB CONC 31.5 g/dL (32.0-36.0); Mean Corpuscular Hemoglobin 29.9 pg (27.0-31.0); Mean Corpuscular Volume 94.8 fl (78.0-98.0); RBC Distribution Width 16.1 % (11.5-14.5)
[2022-12-26 09:10] LABS: Anion Gap 14 mmol/L (10-20); BUN (Urea Nitrogen) 38 mg/dL (9.8-20.1); Calc. Creatinine Clearance 19 mL/min (70-130); Calcium 10.1 mg/dL (7.8-10.44); Carbon Dioxide 24 mmol/L (23-31); Chloride 99 mmol/L (98-107); Estimated GFR 21; Glucose 157 mg/dL (83-110); Magnesium 1.8 mg/dL (1.6-2.6); Potassium 4.3 mmol/L (3.5-5.1); Sodium 133 mmol/L (136-145)
[2022-12-26] MEDS: Carvedilol 25 MG TAB PO SCH ×2 (09:10→20:28)
[2022-12-26] MEDS: Ferrous Gluconate 324 MG TAB PO SCH (09:11)
[2022-12-26] MEDS: Aspirin Chewable 81 MG TAB PO SCH (09:12)
[2022-12-26] MEDS: Calcitriol 0.25 MCG CAP PO SCH (09:13)
[2022-12-26] MEDS: Furosemide 40 MG TAB PO SCH (09:16)
[2022-12-26] MEDS: guaiFENesin ER 600 MG TAB PO SCH ×2 (09:16→20:29)
[2022-12-26] MEDS: Allopurinol 300 MG TAB PO SCH (09:17)
[2022-12-26] MEDS: Azithromycin 500 MG in Sodium Chloride 0.9% 250 ML 250 ML IVPB SCH (09:18)
[2022-12-26 09:41] LABS: Anisocytosis SLIGHT = 6-15 cells (100X) (0-5/hpf); Band 11 % (5-11); Hypochromia SLIGHT = 6-15 cells (100X) (0-5/hpf); Lymphocytes 10 % (21-51); MDiff Complete? YES; Mean Platelet Volume 9.7 fL (7.4-10.4); Metamyelocyte 1 % (0-0); Monocytes 12 % (0-10); Neutrophil 65 % (42-75); Platelet Count 455 10x3/uL (130-400); Platelet Morphology Comment Appears Increased; Polychromasia SLIGHT = 2-3 cells (100X) (0-2/hpf); Reactive Lymphocytes 1 % (0-10); Vacuoles SLIGHT; White Blood Cell (WBC) Count 24.3 10x3/uL (4.8-10.8)
[2022-12-26] MEDS: Erythromycin Base 0.5% Oint 1 GM TUBE EA EYE SCH ×2 (11:06→20:29)
[2022-12-26] MEDS: Cefepime 1 GM in Sodium Chloride 0.9% 100 ML IVPB SCH (13:18)
[2022-12-26] MEDS: Multivit, Therapeutic 1 TAB PO SCH (20:28)
[2022-12-26] MEDS: Atorvastatin Calcium 10 MG TAB PO SCH (20:28)
[2022-12-26] MEDS: Cyanocobalamin (Vitamin B-12) 1,000 MCG TAB PO SCH (20:29)
[2022-12-26] MEDS: Folic Acid 1 MG TAB PO SCH (20:29)
[2022-12-27] MEDS: Ipratropium/Albuterol 3 ML NEB NEB SCH ×4 (01:15→20:08)
[2022-12-27 07:47] LABS: Anion Gap 15 mmol/L (10-20); BUN (Urea Nitrogen) 44 mg/dL (9.8-20.1); Calc. Creatinine Clearance 18 mL/min (70-130); Calcium 10.3 mg/dL (7.8-10.44); Carbon Dioxide 20 mmol/L (23-31); Chloride 99 mmol/L (98-107); Estimated GFR 19; Glucose 191 mg/dL (83-110); Magnesium 1.9 mg/dL (1.6-2.6); Potassium 4.3 mmol/L (3.5-5.1); Sodium 130 mmol/L (136-145)
[2022-12-27 08:19] LABS: Hemoglobin 8.4 g/dL (12.0-16.0); Mean Corpuscular HGB CONC 31.7 g/dL (32.0-36.0); Mean Corpuscular Hemoglobin 30.2 pg (27.0-31.0); Mean Corpuscular Volume 95.2 fl (78.0-98.0); Red Blood Cell (RBC) Count 2.79 mill/uL (4.20-5.40)
[2022-12-27] MEDS: Carvedilol 25 MG TAB PO SCH ×2 (09:03→20:52)
[2022-12-27] MEDS: Azithromycin 500 MG in Sodium Chloride 0.9% 250 ML 250 ML IVPB SCH (09:03)
[2022-12-27] MEDS: Calcitriol 0.25 MCG CAP PO SCH (09:04)
[2022-12-27] MEDS: Ferrous Gluconate 324 MG TAB PO SCH (09:04)
[2022-12-27] MEDS: Aspirin Chewable 81 MG TAB PO SCH (09:04)
[2022-12-27] MEDS: Allopurinol 300 MG TAB PO SCH (09:04)
[2022-12-27] MEDS: guaiFENesin ER 600 MG TAB PO SCH ×2 (09:16→20:52)
[2022-12-27] MEDS: Erythromycin Base 0.5% Oint 1 GM TUBE EA EYE SCH ×2 (09:17→20:52)
[2022-12-27] MEDS: glyBURIDE 2.5 MG TAB PO SCH ×2 (09:17→17:57)
[2022-12-27] MEDS: Furosemide 40 MG TAB PO SCH (09:24)
[2022-12-27 10:16] LABS: Anisocytosis SLIGHT = 6-15 cells (100X) (0-5/hpf); Band 6 % (5-11); Eosinophils 1 % (0-10); Hypochromia SLIGHT = 6-15 cells (100X) (0-5/hpf); Large Platelets SLIGHT; Lymphocytes 7 % (21-51); MDiff Complete? YES; Mean Platelet Volume 9.8 fL (7.4-10.4); Metamyelocyte 1 % (0-0); Monocytes 11 % (0-10); Neutrophil 73 % (42-75); Platelet Count 454 10x3/uL (130-400); Platelet Morphology Comment Appears Increased; Polychromasia SLIGHT = 2-3 cells (100X) (0-2/hpf); Vacuoles SLIGHT; White Blood Cell (WBC) Count 23.7 10x3/uL (4.8-10.8)
[2022-12-27] MEDS: Cefepime 1 GM in Sodium Chloride 0.9% 100 ML IVPB SCH (14:47)
[2022-12-27] MEDS: Multivit, Therapeutic 1 TAB PO SCH (20:52)
[2022-12-27] MEDS: Cyanocobalamin (Vitamin B-12) 1,000 MCG TAB PO SCH (20:52)
[2022-12-27] MEDS: Folic Acid 1 MG TAB PO SCH (20:52)
[2022-12-27] MEDS: Atorvastatin Calcium 10 MG TAB PO SCH (20:52)
[2022-12-28] MEDS: Ipratropium/Albuterol 3 ML NEB NEB SCH ×4 (01:39→19:15)
[2022-12-28 06:44] LABS: Anion Gap 15 mmol/L (10-20); BUN (Urea Nitrogen) 50 mg/dL (9.8-20.1); Band 25 % (5-11); Calc. Creatinine Clearance 18 mL/min (70-130); Calcium 9.8 mg/dL (7.8-10.44); Carbon Dioxide 20 mmol/L (23-31); Chloride 99 mmol/L (98-107); Estimated GFR 20; Glucose 171 mg/dL (83-110); Hemoglobin 8.2 g/dL (12.0-16.0); Hypochromia SLIGHT = 6-15 cells (100X) (0-5/hpf); Lymphocytes 2 % (21-51); MDiff Complete? YES; Magnesium 1.9 mg/dL (1.6-2.6); Mean Corpuscular HGB CONC 31.8 g/dL (32.0-36.0); Mean Corpuscular Volume 94.4 fl (78.0-98.0); Mean Platelet Volume 9.7 fL (7.4-10.4); Monocytes 15 % (0-10); Neutrophil 58 % (42-75); Platelet Count 420 10x3/uL (130-400); Platelet Morphology Comment Appears Increased; Red Blood Cell (RBC) Count 2.73 mill/uL (4.20-5.40); Sodium 130 mmol/L (136-145); White Blood Cell (WBC) Count 21.5 10x3/uL (4.8-10.8)
[2022-12-28] MEDS: Calcitriol 0.25 MCG CAP PO SCH (09:32)
[2022-12-28] MEDS: Ferrous Gluconate 324 MG TAB PO SCH (09:32)
[2022-12-28] MEDS: Carvedilol 25 MG TAB PO SCH ×2 (09:33→20:44)
[2022-12-28] MEDS: glyBURIDE 2.5 MG TAB PO SCH ×2 (09:33→16:29)
[2022-12-28] MEDS: Allopurinol 300 MG TAB PO SCH (09:33)
[2022-12-28] MEDS: guaiFENesin ER 600 MG TAB PO SCH ×2 (09:33→20:45)
[2022-12-28] MEDS: Furosemide 40 MG TAB PO SCH (09:34)
[2022-12-28] MEDS: Aspirin Chewable 81 MG TAB PO SCH (09:34)
[2022-12-28] MEDS: Erythromycin Base 0.5% Oint 1 GM TUBE EA EYE SCH ×2 (09:35→20:45)
[2022-12-28] MEDS: Azithromycin 500 MG in Sodium Chloride 0.9% 250 ML 250 ML IVPB SCH (09:35)
[2022-12-28] MEDS: HumaLOG 300 UNITS/3 ML VIAL SC PRN ×2 (12:18→17:04)
[2022-12-28] MEDS: Cefepime 1 GM in Sodium Chloride 0.9% 100 ML IVPB SCH (14:50)
[2022-12-28] MEDS ORDERED: Colchicine 0.6 MG TAB PO SCH ×2 (18:45→19:45)
[2022-12-28] MEDS: Atorvastatin Calcium 10 MG TAB PO SCH (20:44)
[2022-12-28] MEDS: Multivit, Therapeutic 1 TAB PO SCH (20:45)
[2022-12-28] MEDS: Folic Acid 1 MG TAB PO SCH (20:45)
[2022-12-28] MEDS: Cyanocobalamin (Vitamin B-12) 1,000 MCG TAB PO SCH (20:45)
[2022-12-29] MEDS: Ipratropium/Albuterol 3 ML NEB NEB SCH ×4 (00:40→19:05)
[2022-12-29 06:59] LABS: Hemoglobin 7.8 g/dL (12.0-16.0); Mean Corpuscular HGB CONC 31.6 g/dL (32.0-36.0); Mean Corpuscular Hemoglobin 29.9 pg (27.0-31.0); Mean Corpuscular Volume 94.7 fl (78.0-98.0); Mean Platelet Volume 9.5 fL (7.4-10.4); Platelet Count 434 10x3/uL (130-400); RBC Distribution Width 16.1 % (11.5-14.5); Red Blood Cell (RBC) Count 2.62 mill/uL (4.20-5.40); White Blood Cell (WBC) Count 20.4 10x3/uL (4.8-10.8)
[2022-12-29 07:14] LABS: Anion Gap 15 mmol/L (10-20); BUN (Urea Nitrogen) 57 mg/dL (9.8-20.1); Calc. Creatinine Clearance 18 mL/min (70-130); Calcium 9.7 mg/dL (7.8-10.44); Carbon Dioxide 22 mmol/L (23-31); Chloride 100 mmol/L (98-107); Estimated GFR 20; Glucose 153 mg/dL (83-110); Magnesium 1.8 mg/dL (1.6-2.6); Potassium 3.6 mmol/L (3.5-5.1); Sodium 133 mmol/L (136-145)
[2022-12-29 08:12] LABS: Band 16 % (5-11); Lymphocytes 9 % (21-51); MDiff Complete? YES; Metamyelocyte 2 % (0-0); Monocytes 7 % (0-10); Myelocyte 1 % (0-0); Neutrophil 64 % (42-75); Platelet Morphology Comment Appears Increased; Polychromasia SLIGHT = 2-3 cells (100X) (0-2/hpf)
[2022-12-29] MEDS: Allopurinol 300 MG TAB PO SCH (08:31)
[2022-12-29] MEDS: Aspirin Chewable 81 MG TAB PO SCH (08:31)
[2022-12-29] MEDS: glyBURIDE 2.5 MG TAB PO SCH ×2 (08:31→17:20)
[2022-12-29] MEDS: Ferrous Gluconate 324 MG TAB PO SCH (08:31)
[2022-12-29] MEDS: Calcitriol 0.25 MCG CAP PO SCH (08:31)
[2022-12-29] MEDS: Azithromycin 500 MG in Sodium Chloride 0.9% 250 ML 250 ML IVPB SCH (08:32)
[2022-12-29] MEDS: guaiFENesin ER 600 MG TAB PO SCH ×2 (08:32→20:01)
[2022-12-29] MEDS: Furosemide 40 MG TAB PO SCH (08:32)
[2022-12-29] MEDS: Erythromycin Base 0.5% Oint 1 GM TUBE EA EYE SCH ×2 (08:32→20:01)
[2022-12-29] MEDS: Carvedilol 25 MG TAB PO SCH ×2 (08:32→20:01)
[2022-12-29] MEDS ORDERED: Colchicine 0.6 MG TAB PO SCH (09:00)
[2022-12-29] MEDS: HumaLOG 300 UNITS/3 ML VIAL SC PRN ×2 (12:12→17:20)
[2022-12-29] MEDS: Cefepime 1 GM in Sodium Chloride 0.9% 100 ML IVPB SCH (13:30)
[2022-12-29] MEDS: Cefdinir 300 MG CAP PO SCH (20:00)
[2022-12-29] MEDS: Cyanocobalamin (Vitamin B-12) 1,000 MCG TAB PO SCH (20:01)
[2022-12-29] MEDS: Atorvastatin Calcium 10 MG TAB PO SCH (20:01)
[2022-12-29] MEDS: Doxycycline 100 MG CAP PO SCH (20:01)
[2022-12-29] MEDS: Multivit, Therapeutic 1 TAB PO SCH (20:01)
[2022-12-29] MEDS: Folic Acid 1 MG TAB PO SCH (20:01)
[2022-12-30] MEDS: Ipratropium/Albuterol 3 ML NEB NEB SCH ×3 (00:57→12:20)
[2022-12-30 07:33] LABS: Anion Gap 16 mmol/L (10-20); BUN (Urea Nitrogen) 58 mg/dL (9.8-20.1); Calc. Creatinine Clearance 19 mL/min (70-130); Calcium 9.7 mg/dL (7.8-10.44); Carbon Dioxide 21 mmol/L (23-31); Chloride 103 mmol/L (98-107); Estimated GFR 21; Glucose 75 mg/dL (83-110); Magnesium 1.7 mg/dL (1.6-2.6); Potassium 3.7 mmol/L (3.5-5.1); Sodium 136 mmol/L (136-145)
[2022-12-30 07:39] LABS: Hemoglobin 8.1 g/dL (12.0-16.0); Mean Corpuscular HGB CONC 31.9 g/dL (32.0-36.0); Mean Corpuscular Hemoglobin 30.4 pg (27.0-31.0); Mean Corpuscular Volume 95.1 fl (78.0-98.0); Mean Platelet Volume 9.5 fL (7.4-10.4); Platelet Count 435 10x3/uL (130-400); RBC Distribution Width 16.1 % (11.5-14.5); Red Blood Cell (RBC) Count 2.66 mill/uL (4.20-5.40); White Blood Cell (WBC) Count 17.7 10x3/uL (4.8-10.8)
[2022-12-30] MEDS: Cefdinir 300 MG CAP PO SCH (08:33)
[2022-12-30] MEDS: Furosemide 40 MG TAB PO SCH (08:33)
[2022-12-30] MEDS: Ferrous Gluconate 324 MG TAB PO SCH (08:33)
[2022-12-30] MEDS: Doxycycline 100 MG CAP PO SCH (08:34)
[2022-12-30] MEDS: Aspirin Chewable 81 MG TAB PO SCH (08:34)
[2022-12-30] MEDS: Calcitriol 0.25 MCG CAP PO SCH (08:34)
[2022-12-30] MEDS: Carvedilol 25 MG TAB PO SCH (08:34)
[2022-12-30] MEDS: glyBURIDE 2.5 MG TAB PO SCH (08:34)
[2022-12-30] MEDS: guaiFENesin ER 600 MG TAB PO SCH (08:34)
[2022-12-30] MEDS: Allopurinol 300 MG TAB PO SCH (08:34)
[2022-12-30 08:35] LABS: Band 24 % (5-11); Lymphocytes 9 % (21-51); MDiff Complete? YES; Metamyelocyte 2 % (0-0); Monocytes 6 % (0-10); Myelocyte 2 % (0-0); Neutrophil 57 % (42-75); Platelet Morphology Comment Appears Increased; Polychromasia SLIGHT = 2-3 cells (100X) (0-2/hpf)
[2022-12-30 08:47] VITALS: BP 120/65; TEMP 98.6
== END 2022-12-30 15:03 | disposition home or self-care (01) | DRG 871 ==
LOC: ERS 11:37 → 2NO 13:53 → T4-B 12-24 15:02
PROVIDERS: ADMIT Internal Medicine; ATTEND Internal Medicine
PROC: 3E03329 Introduction of Other Anti-infective into Peripheral Vein, Percutaneous Approach (ICD-10-PCS; principal; 2022-12-22)
PROC: 30233N1 Transfusion of Nonautologous Red Blood Cells into Peripheral Vein, Percutaneous Approach (ICD-10-PCS; 2022-12-23)
DX: A41.9 Sepsis, unspecified organism (principal); J18.9 Pneumonia, unspecified organism; J96.01 Acute respiratory failure with hypoxia; N17.9 Acute kidney failure, unspecified; I13.0 Hypertensive heart and chronic kidney disease with heart failure and stage 1 through stage 4 chronic kidney disease, or unspecified chronic kidney disease; N18.4 Chronic kidney disease, stage 4 (severe); I50.32 Chronic diastolic (congestive) heart failure; E87.1 Hypo-osmolality and hyponatremia; E87.20 Acidosis, unspecified; Z20.822 Contact with and (suspected) exposure to COVID-19; M10.9 Gout, unspecified; E78.5 Hyperlipidemia, unspecified; D63.1 Anemia in chronic kidney disease; E11.649 Type 2 diabetes mellitus with hypoglycemia without coma; E83.42 Hypomagnesemia; E87.6 Hypokalemia; R65.20 Severe sepsis without septic shock; Z90.710 Acquired absence of both cervix and uterus; Z79.899 Other long term (current) drug therapy; Z79.82 Long term (current) use of aspirin; Z79.84 Long term (current) use of oral hypoglycemic drugs; E11.65 Type 2 diabetes mellitus with hyperglycemia
CPT/HCPCS: 36415; 36416; 36430; 51701; 71045; 71046; 80048; 80053; 81003; 81015; 82010; 82533; 82550; 82553; 82728; 82805; 83036; 83540; 83550; 83605; 83735; 84145; 84443; 84484; 85025; 85046; 85610; 85730; 86850; 86900; 86901; 87040; 87070; 87081; 87086; 87205; 87324; 87449; 87493; 87811; 87899; 93005; 94640; 94760; 96361; 96365; 96375; J0456; J0692; J0696; J1644; J1815; J3475; J3480; J3490; J7050; J7620; P9016

== ENCOUNTER 2023-01-11 11:07 | Inpatient (IN) | payer OTHER, MEDICARE ==
[2023-01-11] MEDS ORDERED: levETIRAcetam 500 MG/5 ML VIAL SLOW IVP SCH (12:45)
[2023-01-11 13:27] LABS: Hemoglobin 7.1 g/dL (12.0-16.0); Mean Corpuscular HGB CONC 32.6 g/dL (32.0-36.0); Mean Corpuscular Volume 94.9 fl (78.0-98.0); Mean Platelet Volume 10.3 fL (7.4-10.4); Platelet Count 320 10x3/uL (130-400); RBC Distribution Width 17.4 % (11.5-14.5); Red Blood Cell (RBC) Count 2.31 mill/uL (4.20-5.40); White Blood Cell (WBC) Count 14.7 10x3/uL (4.8-10.8)
[2023-01-11 13:40] LABS: INR-International Normal Ratio 1.1
[2023-01-11 13:48] LABS: ALT (SGPT) 12 U/L (8-55); AST (SGOT) 9 U/L (5-34); Albumin 3.2 g/dL (3.4-4.8); Alkaline Phosphatase 101 U/L (40-110); Anion Gap 16 mmol/L (10-20); BUN (Urea Nitrogen) 45 mg/dL (9.8-20.1); Bilirubin, Total 0.3 mg/dL (0.2-1.2); Calc. Creatinine Clearance 0 mL/min (70-130); Calcium 9.3 mg/dL (7.8-10.44); Carbon Dioxide 21 mmol/L (23-31); Chloride 99 mmol/L (98-107); Estimated GFR 21; Globulin 3.9 g/dL (2.4-3.5); Glucose 386 mg/dL (83-110); Potassium 3.8 mmol/L (3.5-5.1); Protein, Total 7.1 g/dL (5.8-8.1); Sodium 132 mmol/L (136-145)
[2023-01-11 13:58] LABS: Anisocytosis SLIGHT = 6-15 cells (100X) (0-5/hpf); Band 28 % (5-11); Lymphocytes 13 % (21-51); MDiff Complete? YES; Monocytes 2 % (0-10); Neutrophil 49 % (42-75); Platelet Morphology Comment Appears Adequate; Polychromasia SLIGHT = 2-3 cells (100X) (0-2/hpf); Reactive Lymphocytes 8 % (0-10); Target Cells SLIGHT = 2-5 cells (100X) (0-1/hpf); Tear Drops SLIGHT = 2-5 cells (100X) (0-1/hpf)
[2023-01-11] MEDS ORDERED: Morphine 2 MG/ML VIAL SLOW IVP PRN (14:13)
[2023-01-11] MEDS ORDERED: Ipratropium/Albuterol 3 ML NEB NEB PRN (14:13)
[2023-01-11] MEDS ORDERED: Ondansetron PF 4 MG/2 ML Vial IVP PRN (14:13)
[2023-01-11] MEDS ORDERED: Dextrose 50% Abboject 50 ML SYRINGE SLOW IVP PRN (14:57)
[2023-01-11] MEDS ORDERED: Dextrose 5% in Water 1,000 ML IV PRN (14:57)
[2023-01-11] MEDS ORDERED: hydrALAZINE 20 MG/ML VIAL SLOW IVP PRN (16:15)
[2023-01-11 16:55] VITALS: BMI 23.4
[2023-01-11] MEDS: Sodium Chloride 0.9% 1,000 ML IV SCH (17:50)
[2023-01-11] MEDS: Ferrous Sulfate 325 MG TAB PO SCH (17:50)
[2023-01-11] MEDS ORDERED: Acetaminophen 500 MG TAB PO SCH (18:00)
[2023-01-11] MEDS ORDERED: levETIRAcetam 500 MG TAB PO SCH (21:00)
[2023-01-11] MEDS: Ascorbic Acid 500 mg Chewable Tablet PO SCH (21:04)
[2023-01-11] MEDS: Atorvastatin Calcium 10 MG TAB PO SCH (21:04)
[2023-01-11] MEDS: Insulin Glargine 30 UNITS/0.3 ML VIAL SC SCH (21:05)
[2023-01-11] MEDS: Senokot S 8.6-50 MG TAB PO SCH (21:05)
[2023-01-11] MEDS: HumaLOG 300 UNITS/3 ML VIAL SC PRN (21:06)
[2023-01-11] MEDS: levETIRAcetam 500 MG/5 ML VIAL SLOW IVP SCH (22:08)
[2023-01-12] MEDS: Sodium Chloride 0.9% 1,000 ML IV SCH (03:22)
[2023-01-12 05:40] LABS: #Lymphocytes 2.6 thou/uL (1.20-3.40); #Monocytes 1.3 thou/uL (0.11-0.59); #Neutrophils 12.2 thou/uL (1.40-6.50); %Basophils 0.3 % (0.0-1.0); %Eosinophils 0.3 % (0.0-10.0); %Lymphocytes 16.1 % (21.0-51.0); %Monocytes 7.8 % (0.0-10.0); %Neutrophils 75.6 % (42.0-75.0); Hemoglobin 7.1 g/dL (12.0-16.0); Mean Corpuscular HGB CONC 33.1 g/dL (32.0-36.0); Mean Corpuscular Hemoglobin 31.5 pg (27.0-31.0); Mean Corpuscular Volume 94.9 fl (78.0-98.0); Mean Platelet Volume 10.2 fL (7.4-10.4); Platelet Count 342 10x3/uL (130-400); RBC Distribution Width 17.3 % (11.5-14.5); Red Blood Cell (RBC) Count 2.26 mill/uL (4.20-5.40); White Blood Cell (WBC) Count 16.1 10x3/uL (4.8-10.8)
[2023-01-12 05:48] LABS: Phosphorus 3.1 mg/dL (2.3-4.7)
[2023-01-12 05:52] LABS: Anion Gap 12 mmol/L (10-20); BUN (Urea Nitrogen) 35 mg/dL (9.8-20.1); Calc. Creatinine Clearance 23 mL/min (70-130); Carbon Dioxide 26 mmol/L (23-31); Chloride 104 mmol/L (98-107); Estimated GFR 29; Magnesium 1.1 mg/dL (1.6-2.6); Potassium 3.3 mmol/L (3.5-5.1); Sodium 139 mmol/L (136-145)
[2023-01-12 05:56] LABS: Glucose 54 mg/dL (83-110)
[2023-01-12] MEDS ORDERED: Sodium Chloride 0.9% 1,000 ML IV SCH (08:00)
[2023-01-12] MEDS ORDERED: Magnesium 2 GM/50 ML(in water) 4 GM in Premix Bag 1 BAG IVPB SCH (08:30)
[2023-01-12] MEDS ORDERED: Magnesium Sulfate In Water 4 GM in Premix Bag 1 BAG IVPB SCH (08:45)
[2023-01-12] MEDS ORDERED: Famotidine/PF 20 mg/2ml Vial SLOW IVP SCH (09:00)
[2023-01-12] MEDS ORDERED: Magnesium 2 GM/50 ML(in water) 2 GM in Premix Bag 1 BAG IVPB SCH (09:00)
[2023-01-12] MEDS ORDERED: Potassium Phosphate 30 MMOL in Sodium Chloride 0.9% 250 ML 250 ML IVPB SCH (09:00)
[2023-01-12] MEDS: Ascorbic Acid 500 mg Chewable Tablet PO SCH ×2 (09:14→20:43)
[2023-01-12] MEDS: Ferrous Sulfate 325 MG TAB PO SCH ×2 (09:14→18:43)
[2023-01-12] MEDS: Insulin Glargine 30 UNITS/0.3 ML VIAL SC SCH ×2 (09:38→20:37)
[2023-01-12] MEDS: Senokot S 8.6-50 MG TAB PO SCH ×2 (09:39→20:37)
[2023-01-12] MEDS: Polyethylene Glycol 3350 17 GM Packet PO SCH (09:39)
[2023-01-12] MEDS: levETIRAcetam 500 MG/5 ML VIAL SLOW IVP SCH ×2 (10:07→20:43)
[2023-01-12] MEDS: Atorvastatin Calcium 10 MG TAB PO SCH (20:43)
[2023-01-12] MEDS: Magnesium Oxide 400 MG TAB PO SCH (20:43)
[2023-01-13] MEDS: Senokot S 8.6-50 MG TAB PO SCH ×2 (10:19→22:11)
[2023-01-13] MEDS: Polyethylene Glycol 3350 17 GM Packet PO SCH (10:19)
[2023-01-13] MEDS: Ferrous Sulfate 325 MG TAB PO SCH (10:23)
[2023-01-13] MEDS: Ascorbic Acid 500 mg Chewable Tablet PO SCH ×2 (10:24→21:54)
[2023-01-13] MEDS: levETIRAcetam 500 MG/5 ML VIAL SLOW IVP SCH ×2 (10:25→21:54)
[2023-01-13] MEDS: Famotidine 20 MG TAB PO SCH (10:25)
[2023-01-13] MEDS: Magnesium Oxide 400 MG TAB PO SCH ×2 (10:25→21:54)
[2023-01-13] MEDS: Ferrous Gluconate 324 MG TAB PO SCH (10:25)
[2023-01-13] MEDS: Insulin Glargine 30 UNITS/0.3 ML VIAL SC SCH ×2 (10:49→21:53)
[2023-01-13] MEDS: Atorvastatin Calcium 10 MG TAB PO SCH (21:54)
[2023-01-14] MEDS: Carvedilol 6.25 MG TAB PO SCH ×2 (09:10→20:19)
[2023-01-14] MEDS: Ferrous Gluconate 324 MG TAB PO SCH (09:10)
[2023-01-14] MEDS: Ascorbic Acid 500 mg Chewable Tablet PO SCH ×2 (09:10→20:19)
[2023-01-14] MEDS: Famotidine 20 MG TAB PO SCH (09:11)
[2023-01-14] MEDS: Insulin Glargine 30 UNITS/0.3 ML VIAL SC SCH ×2 (09:12→23:37)
[2023-01-14] MEDS: Furosemide 40 MG TAB PO SCH (09:12)
[2023-01-14] MEDS: Magnesium Oxide 400 MG TAB PO SCH ×2 (09:13→20:19)
[2023-01-14] MEDS: levETIRAcetam 500 MG TAB PO SCH ×2 (09:13→20:19)
[2023-01-14] MEDS: Senokot S 8.6-50 MG TAB PO SCH ×2 (09:14→20:20)
[2023-01-14] MEDS: Polyethylene Glycol 3350 17 GM Packet PO SCH (10:12)
[2023-01-14] MEDS: Atorvastatin Calcium 10 MG TAB PO SCH (20:19)
[2023-01-15 07:32] LABS: Hemoglobin 6.4 g/dL (12.0-16.0); Mean Corpuscular HGB CONC 33.7 g/dL (32.0-36.0); Mean Corpuscular Volume 94.8 fl (78.0-98.0); Platelet Count 356 10x3/uL (130-400); RBC Distribution Width 16.8 % (11.5-14.5); Red Blood Cell (RBC) Count 2.01 mill/uL (4.20-5.40); White Blood Cell (WBC) Count 11.7 10x3/uL (4.8-10.8)
[2023-01-15 07:38] LABS: Anion Gap 10 mmol/L (10-20); BUN (Urea Nitrogen) 28 mg/dL (9.8-20.1); Calc. Creatinine Clearance 23 mL/min (70-130); Calcium 8.8 mg/dL (7.8-10.44); Carbon Dioxide 26 mmol/L (23-31); Chloride 102 mmol/L (98-107); Estimated GFR 28; Glucose 170 mg/dL (83-110); Magnesium 1.8 mg/dL (1.6-2.6); Phosphorus 2.6 mg/dL (2.3-4.7); Potassium 4.4 mmol/L (3.5-5.1); Sodium 134 mmol/L (136-145)
[2023-01-15] MEDS ORDERED: Magnesium 2 GM/50 ML(in water) 2 GM in Premix Bag 1 BAG IVPB SCH (08:30)
[2023-01-15] MEDS: Carvedilol 6.25 MG TAB PO SCH ×2 (08:37→20:59)
[2023-01-15] MEDS: Famotidine 20 MG TAB PO SCH (08:37)
[2023-01-15] MEDS: Insulin Glargine 30 UNITS/0.3 ML VIAL SC SCH ×2 (08:37→21:00)
[2023-01-15] MEDS: Ferrous Gluconate 324 MG TAB PO SCH (08:38)
[2023-01-15] MEDS: Ascorbic Acid 500 mg Chewable Tablet PO SCH ×2 (08:38→20:59)
[2023-01-15] MEDS: Furosemide 40 MG TAB PO SCH (08:38)
[2023-01-15] MEDS: levETIRAcetam 500 MG TAB PO SCH ×2 (08:38→21:00)
[2023-01-15] MEDS: Magnesium Oxide 400 MG TAB PO SCH ×2 (08:38→21:00)
[2023-01-15] MEDS: Senokot S 8.6-50 MG TAB PO SCH ×2 (08:45→20:03)
[2023-01-15] MEDS: Polyethylene Glycol 3350 17 GM Packet PO SCH (08:45)
[2023-01-15 11:57] LABS: Band 2 % (5-11); Lymphocytes 22 % (21-51); MDiff Complete? YES; Monocytes 6 % (0-10); Neutrophil 70 % (42-75); Platelet Morphology Comment Appears Adequate; RBC Morphology Normal
[2023-01-15] MEDS: HumaLOG 300 UNITS/3 ML VIAL SC PRN ×2 (12:36→21:47)
[2023-01-15] MEDS: Atorvastatin Calcium 10 MG TAB PO SCH (21:00)
[2023-01-16 06:58] LABS: Hemoglobin 7.7 g/dL (12.0-16.0); Mean Corpuscular HGB CONC 33.6 g/dL (32.0-36.0); Mean Corpuscular Hemoglobin 31.2 pg (27.0-31.0); Mean Corpuscular Volume 92.6 fl (78.0-98.0); Mean Platelet Volume 9.5 fL (7.4-10.4); Platelet Count 345 10x3/uL (130-400); RBC Distribution Width 17.3 % (11.5-14.5); Red Blood Cell (RBC) Count 2.47 mill/uL (4.20-5.40)
[2023-01-16 07:13] LABS: Anion Gap 13 mmol/L (10-20); BUN (Urea Nitrogen) 34 mg/dL (9.8-20.1); Calc. Creatinine Clearance 20 mL/min (70-130); Calcium 9.2 mg/dL (7.8-10.44); Carbon Dioxide 26 mmol/L (23-31); Chloride 99 mmol/L (98-107); Estimated GFR 24; Glucose 117 mg/dL (83-110); Magnesium 2.3 mg/dL (1.6-2.6); Phosphorus 3.2 mg/dL (2.3-4.7); Potassium 4.3 mmol/L (3.5-5.1); Sodium 134 mmol/L (136-145)
[2023-01-16 08:01] LABS: Band 7 % (5-11); Eosinophils 1 % (0-10); Lymphocytes 26 % (21-51); MDiff Complete? YES; Monocytes 6 % (0-10); Neutrophil 55 % (42-75); Platelet Morphology Comment Appears Adequate; Polychromasia SLIGHT = 2-3 cells (100X) (0-2/hpf); Reactive Lymphocytes 5 % (0-10); Tear Drops SLIGHT = 2-5 cells (100X) (0-1/hpf)
[2023-01-16] MEDS: Polyethylene Glycol 3350 17 GM Packet PO SCH (08:26)
[2023-01-16] MEDS: levETIRAcetam 500 MG TAB PO SCH (08:27)
[2023-01-16] MEDS: Magnesium Oxide 400 MG TAB PO SCH (08:27)
[2023-01-16] MEDS: Ascorbic Acid 500 mg Chewable Tablet PO SCH (08:27)
[2023-01-16] MEDS: Furosemide 40 MG TAB PO SCH (08:28)
[2023-01-16] MEDS: Carvedilol 6.25 MG TAB PO SCH (08:28)
[2023-01-16] MEDS: Senokot S 8.6-50 MG TAB PO SCH (08:29)
[2023-01-16] MEDS: Ferrous Gluconate 324 MG TAB PO SCH (08:29)
[2023-01-16] MEDS: Famotidine 20 MG TAB PO SCH (08:29)
[2023-01-16] MEDS: Insulin Glargine 30 UNITS/0.3 ML VIAL SC SCH (08:30)
[2023-01-16] MEDS: HumaLOG 300 UNITS/3 ML VIAL SC PRN (12:20)
[2023-01-16 12:47] VITALS: BP 124/67; TEMP 98.7
== END 2023-01-16 13:00 | disposition swing bed (61) | DRG 83 ==
LOC: ERS 11:07 → ERHOLD 12:51 → SURG A 15:41 → IMCU/EMU 20:11 → SURG A 01-14 14:02
PROVIDERS: ADMIT Specialist; ATTEND Surgery
PROC: 30233N1 Transfusion of Nonautologous Red Blood Cells into Peripheral Vein, Percutaneous Approach (ICD-10-PCS; principal; 2023-01-15)
DX: S06.5XAA Traumatic subdural hemorrhage with loss of consciousness status unknown, initial encounter (principal); E87.1 Hypo-osmolality and hyponatremia; G93.49 Other encephalopathy; N18.4 Chronic kidney disease, stage 4 (severe); D63.1 Anemia in chronic kidney disease; R91.8 Other nonspecific abnormal finding of lung field; E04.1 Nontoxic single thyroid nodule; N18.9 Chronic kidney disease, unspecified; R40.2362 Coma scale, best motor response, obeys commands, at arrival to emergency department; R40.2142 Coma scale, eyes open, spontaneous, at arrival to emergency department; R40.2252 Coma scale, best verbal response, oriented, at arrival to emergency department; E78.5 Hyperlipidemia, unspecified; M10.9 Gout, unspecified; M50.31 Other cervical disc degeneration, high cervical region; I12.9 Hypertensive chronic kidney disease with stage 1 through stage 4 chronic kidney disease, or unspecified chronic kidney disease; E11.65 Type 2 diabetes mellitus with hyperglycemia; E11.22 Type 2 diabetes mellitus with diabetic chronic kidney disease; Z90.710 Acquired absence of both cervix and uterus; V86.59XA Driver of other special all-terrain or other off-road motor vehicle injured in nontraffic accident, initial encounter; V86.69XA Passenger of other special all-terrain or other off-road motor vehicle injured in nontraffic accident, initial encounter; Y92.39 Other specified sports and athletic area as the place of occurrence of the external cause
CPT/HCPCS: 36415; 36416; 36430; 70450; 72125; 80048; 80053; 83735; 84100; 84484; 85025; 85610; 85730; 86850; 86900; 86901; 93005; 94760; 95712; 95819; 95957; J0360; J1815; J1953; J3475; J7050; P9016; S0028

== ENCOUNTER 2023-01-18 10:59 | Emergency (ER) | payer MEDICARE ==
[2023-01-18 11:27] LABS: #Eosinphils 0.1 thou/uL (0.0-0.7); #Lymphocytes 1.5 thou/uL (1.20-3.40); #Monocytes 1.1 thou/uL (0.11-0.59); #Neutrophils 8.9 thou/uL (1.40-6.50); %Basophils 0.4 % (0.0-1.0); %Eosinophils 0.7 % (0.0-10.0); %Lymphocytes 13.1 % (21.0-51.0); %Monocytes 9.4 % (0.0-10.0); %Neutrophils 76.4 % (42.0-75.0); Hemoglobin 7.9 g/dL (12.0-16.0); Mean Corpuscular HGB CONC 32.6 g/dL (32.0-36.0); Mean Corpuscular Hemoglobin 30.5 pg (27.0-31.0); Mean Corpuscular Volume 93.6 fl (78.0-98.0); Mean Platelet Volume 10.2 fL (7.4-10.4); Platelet Count 435 10x3/uL (130-400); RBC Distribution Width 17.3 % (11.5-14.5); Red Blood Cell (RBC) Count 2.59 mill/uL (4.20-5.40); White Blood Cell (WBC) Count 11.6 10x3/uL (4.8-10.8)
[2023-01-18 11:32] LABS: INR-International Normal Ratio 1.2; PTT 35.8 sec (22.9-36.1); Prothrombin Time 15.5 sec (12.0-14.7)
[2023-01-18 12:08] LABS: CKMB 0.4 ng/mL (0-6.6)
[2023-01-18 12:50] LABS: Albumin 2.6 g/dL (3.4-4.8)
[2023-01-18 12:51] LABS: Chloride 96 mmol/L (98-107)
[2023-01-18 12:52] LABS: Calcium 9.7 mg/dL (7.8-10.44); Potassium 4.6 mmol/L (3.5-5.1); Sodium 134 mmol/L (136-145)
[2023-01-18 12:53] LABS: Globulin 4.6 g/dL (2.4-3.5); Glucose 166 mg/dL (83-110); Protein, Total 7.2 g/dL (5.8-8.1)
[2023-01-18 12:55] LABS: Alcohol Less than 10 mg/dL (Less than 10); Anion Gap 16 mmol/L (10-20); Bilirubin, Total 0.6 mg/dL (0.2-1.2); Carbon Dioxide 27 mmol/L (23-31)
[2023-01-18 12:56] LABS: Alkaline Phosphatase 164 U/L (40-110); Calc. Creatinine Clearance 0 mL/min (70-130); Estimated GFR 21
[2023-01-18 12:57] LABS: BUN (Urea Nitrogen) 46 mg/dL (9.8-20.1)
[2023-01-18 12:58] LABS: AST (SGOT) 43 U/L (5-34)
[2023-01-18 12:59] LABS: ALT (SGPT) 32 U/L (8-55); Acetaminophen Less than 10.0 mcg/mL (10.0-30.0); CK (CPK) 10 U/L (29-168); Lipase 75 U/L (8-78); Salicylate Less than 8.0 mg/dL (15.0-30.0)
[2023-01-18 14:10] LABS: Bilirubin Negative (Negative); Blood, Urine Negative (Negative); Clarity Turbid (Clear); Glucose, Urine (Dipstick) Normal (Negative); Ketone, Urine Negative (Negative); Leukocyte 500 Leu/uL (Negative); Nitrite Negative (Negative); Protein, Urine (Dipstick) 50 mg/dL (Neg-Trace); RBC/HPF None Seen HPF (0-3); Specific Gravity, Urine 1.013 (1.002-1.036); Squamous Epithelial 0-3 HPF (0-3); Urobilinogen Normal mg/dL (Less than 2)
[2023-01-18 14:15] LABS: Amphetamine Not Detected (NotDetected); Barbiturates Screen Not Detected (NotDetected); Benzodiazepine Screen Not Detected (NotDetected); Cocaine Metabolite Screen Not Detected (NotDetected); Methadone Not Detected (NotDetected); Methamphetamine Not Detected (NotDetected); Opiate Screen Not Detected (NotDetected); Oxycodone Screen Not Detected (NotDetected); Phencyclidine (PCP) Not Detected (NotDetected); THC/Cannabinoid Screen Not Detected (NotDetected); Tricyclic Screen Not Detected (NotDetected)
[2023-01-18 14:24] LABS: WBC/HPF 21-50 HPF (0-3)
[2023-01-18 14:25] LABS: Bacteria/HPF 1+ HPF (None Seen); Yeast-Budding Rare HPF (None Seen)
[2023-01-18] MEDS ORDERED: cefTRIAXone (ROCEPHIN) 1 GM VIAL ONE (14:43)
== END 2023-01-18 16:07 ==
LOC: ERS 10:59
DX: R41.82 Altered mental status, unspecified (principal); N39.0 Urinary tract infection, site not specified; D72.829 Elevated white blood cell count, unspecified; E11.9 Type 2 diabetes mellitus without complications; E78.2 Mixed hyperlipidemia; I10 Essential (primary) hypertension
CPT/HCPCS: 36416; 51701; 70450; 71045; 80306; 80307; 81003; 81015; 82140; 82553; 83690; 84443; 84484; 85025; 85610; 85730; 93005; 96365; J0696

== ENCOUNTER 2023-02-22 12:27 | Outpatient (CLI) | payer MEDICARE | END 2023-02-22 12:28 | disposition home or self-care (01) | LOC: CT 12:27 | PROVIDERS: ATTEND Surgery | DX: I62.00 Nontraumatic subdural hemorrhage, unspecified (principal) | CPT/HCPCS: 70450 ==

== ENCOUNTER 2023-04-06 09:57 | Inpatient (IN) | payer MEDICARE ==
[2023-04-06] MEDS ORDERED: Dicyclomine 20 MG TAB ONE (11:12)
[2023-04-06 11:43] LABS: Hemoglobin 8.5 g/dL (12.0-16.0); Mean Corpuscular HGB CONC 32.3 g/dL (32.0-36.0); Mean Corpuscular Hemoglobin 27.8 pg (27.0-31.0); Mean Corpuscular Volume 85.9 fl (78.0-98.0); Mean Platelet Volume 11.9 fL (7.4-10.4); Platelet Count 426 10x3/uL (130-400); Red Blood Cell (RBC) Count 3.06 mill/uL (4.20-5.40); White Blood Cell (WBC) Count 27.8 10x3/uL (4.8-10.8)
[2023-04-06 11:44] LABS: Delete Auto Diff?? YES; Manual Diff?? YES
[2023-04-06 12:07] LABS: Albumin 2.5 g/dL (3.4-4.8)
[2023-04-06 12:08] LABS: Chloride 95 mmol/L (98-107); Potassium 3.5 mmol/L (3.5-5.1); Sodium 127 mmol/L (136-145)
[2023-04-06 12:09] LABS: Calcium 8.8 mg/dL (7.8-10.44); Glucose 381 mg/dL (83-110)
[2023-04-06 12:10] LABS: Globulin 2.9 g/dL (2.4-3.5); Protein, Total 5.4 g/dL (5.8-8.1)
[2023-04-06 12:11] LABS: Bilirubin, Total 0.2 mg/dL (0.2-1.2); Carbon Dioxide 23 mmol/L (23-31)
[2023-04-06 12:12] LABS: Alkaline Phosphatase 118 U/L (40-110)
[2023-04-06 12:13] LABS: Calc. Creatinine Clearance 0 mL/min (70-130); Estimated GFR 21
[2023-04-06 12:14] LABS: BUN (Urea Nitrogen) 27 mg/dL (9.8-20.1)
[2023-04-06 12:15] LABS: ALT (SGPT) Less than 7 U/L (8-55); AST (SGOT) 5 U/L (5-34); Band 16 % (5-11); CellaVision Operator ID LAB.GE; Large Platelets 0.9 % (0-5); Lipase 18 U/L (8-78); Lymphocytes 3 % (21-51); Monocytes 4 % (0-10); Neutrophil 75 % (42-75); Platelet Adequacy Comment Platelets Increased; Polychromasia SLIGHT = 2-3 cells HPF (0-2); Reactive Lymphocytes 1 % (0-10); Total Cell Count 117
[2023-04-06 12:18] LABS: Anion Gap 13 mmol/L (10-20)
[2023-04-06 13:05] LABS: Bilirubin Negative (Negative); Blood, Urine 1+ (Negative); CAUTI Indications for Culture Pelvic or flank pain; Clarity Turbid (Clear); Glucose, Urine (Dipstick) 500 mg/dL (Negative); Ketone, Urine Negative (Negative); Leukocyte 500 Leu/uL (Negative); Nitrite Negative (Negative); Protein, Urine (Dipstick) 20 mg/dL (Neg-Trace); Specific Gravity, Urine 1.009 (1.002-1.036); Urobilinogen Normal mg/dL (Less than 2); pH, Urine 5.5 (5.0-9.0)
[2023-04-06 13:06] LABS: Bacteria/HPF 1+ HPF (None Seen); WBC/HPF 21-50 HPF (0-3); Yeast-Budding 1+ HPF (None Seen)
[2023-04-06 13:08] LABS: Urine Culture Reflex Yes Yes
[2023-04-06] MEDS ORDERED: HumaLOG 300 UNITS/3 ML VIAL ONE (13:47)
[2023-04-06] MEDS ORDERED: metroNIDAZOLE 500 MG/100 ML BAG ONE (13:47)
[2023-04-06 15:18] LABS: HIV (1/2) Antibody/Antigen Non-Reactive (NonReactive)
[2023-04-06 15:36] VITALS: BMI 21.4
[2023-04-06] MEDS ORDERED: Dextrose 50% Abboject 50 ML SYRINGE SLOW IVP PRN (16:05)
[2023-04-06] MEDS ORDERED: HumaLOG 300 UNITS/3 ML VIAL SC PRN (16:05)
[2023-04-06] MEDS ORDERED: Dextrose 5% in Water 1,000 ML IV PRN (16:05)
[2023-04-06] MEDS ORDERED: Glucagon 1 MG/ML KIT IM PRN (16:05)
[2023-04-06] MEDS ORDERED: Ondansetron PF 4 MG/2 ML Vial IVP PRN (16:15)
[2023-04-06] MEDS ORDERED: Sodium Chloride 0.9% 1,000 ML IV SCH (16:15)
[2023-04-06] MEDS ORDERED: Acetaminophen 325 MG TAB PO PRN (16:15)
[2023-04-06] MEDS ORDERED: Ondansetron ODT 4 MG TAB SL PRN (16:15)
[2023-04-06] MEDS ORDERED: Piperacillin/Tazobactam 3.375 GM in Sodium Chloride 0.9% 100 ML IVPB SCH ×3 (16:30→21:00)
[2023-04-06] MEDS: Sodium Chloride 0.9% 1,000 ML IV SCH (17:23)
[2023-04-06 17:28] LABS: HBCM Index 0.07 S/CO (0-0.79); HBSAg Index 0.21 S/CO (0-0.99); Hep A IgM AB Non-Reactive S/CO (NonReactive); Hep A IgM S/CO 0.16 S/CO (0-0.79); Hep B Surf Ag Non-Reactive S/CO (NonReactive); Hep C IgG Ab Non-Reactive S/CO (NonReactive); Hep C Index 0.07 S/CO (0-0.79); Hepatitis B Core IgM Abs Non-Reactive S/CO (NonReactive)
[2023-04-06 19:50] LABS: Lactic Acid 3.6 mmol/L (0.5-2.2)
[2023-04-06] MEDS: Famotidine 20 MG TAB PO SCH (19:51)
[2023-04-06] MEDS: Atorvastatin Calcium 10 MG TAB PO SCH (19:51)
[2023-04-06] MEDS: metroNIDAZOLE 500 MG in Premix Bag 1 BAG IVPB SCH (21:16)
[2023-04-06 23:10] LABS: Campy jejuni + coli by PCR Negative (Negative); STEC Shiga Toxin 1+2 Negative (Negative); Salmonella spp. by PCR Negative (Negative); Shigella spp + EIEC by PCR Negative (Negative)
[2023-04-06] MEDS: Vancomycin HCl 125 MG/5 ML (BATCHED) UDCUP PO SCH (23:25)
[2023-04-07] MEDS ORDERED: Piperacillin/Tazobactam 3.375 GM in Sodium Chloride 0.9% 100 ML IVPB SCH (01:00)
[2023-04-07] MEDS: Sodium Chloride 0.9% 1,000 ML IV SCH ×3 (05:34→22:12)
[2023-04-07] MEDS: Vancomycin HCl 125 MG/5 ML (BATCHED) UDCUP PO SCH ×3 (05:35→17:18)
[2023-04-07] MEDS: metroNIDAZOLE 500 MG in Premix Bag 1 BAG IVPB SCH ×3 (05:35→22:05)
[2023-04-07 06:39] LABS: #Basophils 0.1 thou/uL (0.0-0.2); #Monocytes 1.5 thou/uL (0.11-0.59); #Neutrophils 17.7 thou/uL (1.40-6.50); %Basophils 0.3 % (0.0-1.0); %Eosinophils 0.1 % (0.0-10.0); %Lymphocytes 10.1 % (21.0-51.0); %Monocytes 6.8 % (0.0-10.0); %Neutrophils 79.2 % (42.0-75.0); Hemoglobin 6.9 g/dL (12.0-16.0); Mean Corpuscular HGB CONC 30.3 g/dL (32.0-36.0); Mean Corpuscular Hemoglobin 27.1 pg (27.0-31.0); Mean Platelet Volume 11.5 fL (7.4-10.4); Platelet Count 368 10x3/uL (130-400); RBC Distribution Width 18.1 % (11.5-14.5); Red Blood Cell (RBC) Count 2.55 mill/uL (4.20-5.40); White Blood Cell (WBC) Count 22.4 10x3/uL (4.8-10.8)
[2023-04-07 06:49] LABS: Mean Corpuscular Volume 89.4 fl (78.0-98.0)
[2023-04-07 07:03] LABS: Anion Gap 10 mmol/L (10-20); BUN (Urea Nitrogen) 22 mg/dL (9.8-20.1); Calc. Creatinine Clearance 21 mL/min (70-130); Carbon Dioxide 22 mmol/L (23-31); Chloride 100 mmol/L (98-107); Estimated GFR 27; Glucose 104 mg/dL (83-110); Potassium 2.9 mmol/L (3.5-5.1); Sodium 129 mmol/L (136-145)
[2023-04-07] MEDS: Calcitriol 0.25 MCG CAP PO SCH (08:18)
[2023-04-07] MEDS: Allopurinol 100 MG TAB PO SCH (08:18)
[2023-04-07] MEDS: Potassium Chloride 20 MEQ TAB PO SCH ×3 (09:35→22:06)
[2023-04-07] MEDS: HumaLOG 300 UNITS/3 ML VIAL SC PRN ×2 (12:10→16:00)
[2023-04-07] MEDS: Atorvastatin Calcium 10 MG TAB PO SCH (20:54)
[2023-04-07] MEDS: Famotidine 20 MG TAB PO SCH (20:54)
[2023-04-08] MEDS: Vancomycin HCl 125 MG/5 ML (BATCHED) UDCUP PO SCH ×4 (00:25→17:43)
[2023-04-08] MEDS: Potassium Chloride 20 MEQ TAB PO SCH (04:59)
[2023-04-08] MEDS: metroNIDAZOLE 500 MG in Premix Bag 1 BAG IVPB SCH ×3 (05:20→21:08)
[2023-04-08 05:52] LABS: #Basophils 0.2 thou/uL (0.0-0.2); #Eosinphils 0.1 thou/uL (0.0-0.7); #Neutrophils 8.2 thou/uL (1.40-6.50); %Basophils 1.3 % (0.0-1.0); %Eosinophils 0.5 % (0.0-10.0); %Lymphocytes 17.2 % (21.0-51.0); %Monocytes 8.2 % (0.0-10.0); %Neutrophils 65.5 % (42.0-75.0); Hemoglobin 8.8 g/dL (12.0-16.0); Mean Corpuscular HGB CONC 31.3 g/dL (32.0-36.0); Mean Corpuscular Hemoglobin 28.1 pg (27.0-31.0); Mean Corpuscular Volume 89.8 fl (78.0-98.0); Mean Platelet Volume 11.4 fL (7.4-10.4); Platelet Count 395 10x3/uL (130-400); RBC Distribution Width 17.2 % (11.5-14.5); Red Blood Cell (RBC) Count 3.13 mill/uL (4.20-5.40); White Blood Cell (WBC) Count 12.6 10x3/uL (4.8-10.8)
[2023-04-08 06:03] LABS: Manual Diff?? YES
[2023-04-08 06:17] LABS: Anion Gap 8 mmol/L (10-20); BUN (Urea Nitrogen) 17 mg/dL (9.8-20.1); Calc. Creatinine Clearance 24 mL/min (70-130); Calcium 8.3 mg/dL (7.8-10.44); Carbon Dioxide 19 mmol/L (23-31); Chloride 109 mmol/L (98-107); Estimated GFR 32; Glucose 117 mg/dL (83-110); Potassium 4.6 mmol/L (3.5-5.1); Sodium 131 mmol/L (136-145)
[2023-04-08 06:51] LABS: Band 9 % (5-11); Burr Cells SLIGHT = 2-5 cells HPF (0-1); CellaVision Operator ID LAB.GE; Large Platelets 2.9 % (0-5); Lymphocytes 10 % (21-51); Metamyelocyte 4 % (0-0); Monocytes 1 % (0-10); Myelocyte 2 % (0-0); Neutrophil 74 % (42-75); Platelet Adequacy Comment Platelets Normal; Polychromasia MODERATE = 3-4 cells HPF (0-2); Reactive Lymphocytes 1 % (0-10); Total Cell Count 103
[2023-04-08 06:58] LABS: Toxic Granulation SLIGHT
[2023-04-08] MEDS: Allopurinol 100 MG TAB PO SCH (08:16)
[2023-04-08] MEDS: Calcitriol 0.25 MCG CAP PO SCH (08:16)
[2023-04-08] MEDS: Sodium Chloride 0.9% 1,000 ML IV SCH ×3 (08:20→21:07)
[2023-04-08] MEDS: HumaLOG 300 UNITS/3 ML VIAL SC PRN ×2 (11:40→16:31)
[2023-04-08] MEDS: Atorvastatin Calcium 10 MG TAB PO SCH (20:52)
[2023-04-08] MEDS: Famotidine 20 MG TAB PO SCH (20:52)
[2023-04-09] MEDS: Acetaminophen 325 MG TAB PO PRN (02:09)
[2023-04-09] MEDS: Vancomycin HCl 125 MG/5 ML (BATCHED) UDCUP PO SCH ×4 (02:10→18:30)
[2023-04-09] MEDS: Sodium Chloride 0.9% 1,000 ML IV SCH ×3 (05:00→21:22)
[2023-04-09] MEDS: metroNIDAZOLE 500 MG in Premix Bag 1 BAG IVPB SCH ×3 (05:19→21:23)
[2023-04-09 06:42] LABS: Hemoglobin 8.1 g/dL (12.0-16.0); Mean Corpuscular HGB CONC 31.6 g/dL (32.0-36.0); Mean Corpuscular Hemoglobin 29.1 pg (27.0-31.0); Mean Corpuscular Volume 92.1 fl (78.0-98.0); Mean Platelet Volume 11.4 fL (7.4-10.4); Platelet Count 365 10x3/uL (130-400); RBC Distribution Width 17.4 % (11.5-14.5); Red Blood Cell (RBC) Count 2.78 mill/uL (4.20-5.40); White Blood Cell (WBC) Count 9.8 10x3/uL (4.8-10.8)
[2023-04-09 06:44] LABS: Delete Auto Diff?? YES; Manual Diff?? YES
[2023-04-09 07:16] LABS: Anion Gap 9 mmol/L (10-20); BUN (Urea Nitrogen) 17 mg/dL (9.8-20.1); Calc. Creatinine Clearance 25 mL/min (70-130); Calcium 8.2 mg/dL (7.8-10.44); Carbon Dioxide 15 mmol/L (23-31); Chloride 114 mmol/L (98-107); Estimated GFR 34; Glucose 133 mg/dL (83-110); Potassium 4.6 mmol/L (3.5-5.1); Sodium 133 mmol/L (136-145)
[2023-04-09 07:17] LABS: Band 3 % (5-11); Burr Cells MODERATE= 6-15 cells HPF (0-1); CellaVision Operator ID LAB.GE; Large Platelets 2.1 % (0-5); Lymphocytes 17 % (21-51); Metamyelocyte 3 % (0-0); Monocytes 2 % (0-10); Myelocyte 1 % (0-0); Neutrophil 72 % (42-75); Platelet Adequacy Comment Platelets Normal; Polychromasia SLIGHT = 2-3 cells HPF (0-2); Reactive Lymphocytes 2 % (0-10); Total Cell Count 97
[2023-04-09] MEDS: Calcitriol 0.25 MCG CAP PO SCH (08:20)
[2023-04-09] MEDS: Allopurinol 100 MG TAB PO SCH (08:20)
[2023-04-09] MEDS: HumaLOG 300 UNITS/3 ML VIAL SC PRN ×2 (12:23→16:29)
[2023-04-09] MEDS: Famotidine 20 MG TAB PO SCH (20:43)
[2023-04-09] MEDS: Atorvastatin Calcium 10 MG TAB PO SCH (20:43)
[2023-04-09] MEDS ORDERED: Ondansetron ODT 4 MG TAB PO PRN (22:38)
[2023-04-09] MEDS: Ondansetron PF 4 MG/2 ML Vial IVP PRN (22:56)
[2023-04-09] MEDS ORDERED: Pantoprazole 40 MG VIAL IVP SCH (23:00)
[2023-04-10] MEDS: Sodium Chloride 0.9% 1,000 ML IV SCH (00:30)
[2023-04-10] MEDS: Vancomycin HCl 125 MG/5 ML (BATCHED) UDCUP PO SCH ×4 (01:12→18:22)
[2023-04-10] MEDS: Acetaminophen 325 MG TAB PO PRN (01:17)
[2023-04-10] MEDS: metroNIDAZOLE 500 MG in Premix Bag 1 BAG IVPB SCH ×3 (05:18→21:02)
[2023-04-10 06:14] LABS: Hemoglobin 8.3 g/dL (12.0-16.0); Mean Corpuscular HGB CONC 30.3 g/dL (32.0-36.0); Mean Corpuscular Hemoglobin 28.1 pg (27.0-31.0); Mean Corpuscular Volume 92.9 fl (78.0-98.0); Mean Platelet Volume 10.9 fL (7.4-10.4); Platelet Count 377 10x3/uL (130-400); RBC Distribution Width 17.8 % (11.5-14.5); Red Blood Cell (RBC) Count 2.95 mill/uL (4.20-5.40); White Blood Cell (WBC) Count 9.4 10x3/uL (4.8-10.8)
[2023-04-10 06:37] LABS: Anion Gap 8 mmol/L (10-20); BUN (Urea Nitrogen) 16 mg/dL (9.8-20.1); Calc. Creatinine Clearance 23 mL/min (70-130); Calcium 8.1 mg/dL (7.8-10.44); Carbon Dioxide 16 mmol/L (23-31); Chloride 116 mmol/L (98-107); Estimated GFR 31; Glucose 172 mg/dL (83-110); Potassium 4.5 mmol/L (3.5-5.1); Sodium 135 mmol/L (136-145)
[2023-04-10 06:48] LABS: Delete Auto Diff?? YES; Manual Diff?? YES
[2023-04-10 07:18] LABS: Adenovirus F 40-41 Not Detected (Not Detected); Astrovirus Not Detected (Not Detected); Campylobacter by PCR Not Detected (Not Detected); Cryptosporidium Not Detected (Not Detected); Cyclospora cayetanensis Not Detected (Not Detected); Entamoeba histolytica Not Detected (Not Detected); Enteroaggregative E. coli Not Detected (Not Detected); Enteropathogenic E. coli Not Detected (Not Detected); Enterotoxigenic E. coli Not Detected (Not Detected); Giardia lamblia Not Detected (Not Detected); Norovirus GI-GII Not Detected (Not Detected); Plesiomonas shigelloides Not Detected (Not Detected); Rotavirus A Not Detected (Not Detected); Salmonella Not Detected (Not Detected); Sapovirus Not Detected (Not Detected); Shiga-toxin-producing E coli Not Detected (Not Detected); Shigella/Enteroinvasive E coli Not Detected (Not Detected); Vibrio Not Detected (Not Detected); Vibrio cholerae Not Detected (Not Detected); Yersinia enterocolitica Not Detected (Not Detected)
[2023-04-10 07:55] LABS: Band 4 % (5-11); Burr Cells SLIGHT = 2-5 cells HPF (0-1); Hypochromia SLIGHT = 6-15 cells HPF (0-5); Large Platelets 5.9 % (0-5); Lymphocytes 11 % (21-51); Monocytes 6 % (0-10); Neutrophil 77 % (42-75); Ovalocytes SLIGHT = 2-5 cells HPF (0-1); Platelet Adequacy Comment Platelets Normal; Polychromasia MODERATE = 3-4 cells HPF (0-2); Reactive Lymphocytes 1 % (0-10); Tear Drops SLIGHT = 2-5 cells HPF (0-1); Total Cell Count 102
[2023-04-10] MEDS: Calcitriol 0.25 MCG CAP PO SCH (09:37)
[2023-04-10] MEDS: Allopurinol 100 MG TAB PO SCH (09:38)
[2023-04-10] MEDS: Sodium Bicarbonate Tab 325 MG TAB PO SCH ×3 (09:38→20:58)
[2023-04-10] MEDS: HumaLOG 300 UNITS/3 ML VIAL SC PRN ×2 (14:03→18:31)
[2023-04-10] MEDS ORDERED: Sodium Chloride 0.45% 1,000 ML IV SCH (17:15)
[2023-04-10] MEDS ORDERED: 1/2 NS w/KCL 20 mEq 1,000 ML IV SCH (17:15)
[2023-04-10] MEDS: Ondansetron PF 4 MG/2 ML Vial IVP PRN (18:30)
[2023-04-10] MEDS: Famotidine 20 MG TAB PO SCH (20:58)
[2023-04-10] MEDS: Atorvastatin Calcium 10 MG TAB PO SCH (20:58)
[2023-04-11] MEDS: Vancomycin HCl 125 MG/5 ML (BATCHED) UDCUP PO SCH ×3 (00:48→13:02)
[2023-04-11] MEDS: metroNIDAZOLE 500 MG in Premix Bag 1 BAG IVPB SCH (05:49)
[2023-04-11 08:16] VITALS: BP 152/77; TEMP 97.6
[2023-04-11] MEDS: Sodium Bicarbonate Tab 325 MG TAB PO SCH (09:56)
[2023-04-11] MEDS: Calcitriol 0.25 MCG CAP PO SCH (09:57)
[2023-04-11] MEDS: Allopurinol 100 MG TAB PO SCH (09:57)
[2023-04-11] MEDS: HumaLOG 300 UNITS/3 ML VIAL SC PRN (13:04)
[2023-04-12 08:37] LABS: Routine O & P Final report (.)
[2023-04-16 14:15] LABS: Fatty Acid Droplets Normal (.); Neutral Fats And/Or Soaps Normal (.)
== END 2023-04-11 13:15 | disposition home or self-care (01) | DRG 872 ==
LOC: ERS 09:57 → ERHOLD 14:19 → T4-B 15:41 → OBSVTOIN 16:25
PROVIDERS: ADMIT Internal Medicine; ATTEND Internal Medicine
PROC: 3E03329 Introduction of Other Anti-infective into Peripheral Vein, Percutaneous Approach (ICD-10-PCS; 2023-04-06)
PROC: 30233N1 Transfusion of Nonautologous Red Blood Cells into Peripheral Vein, Percutaneous Approach (ICD-10-PCS; principal; 2023-04-07)
DX: A41.89 Other specified sepsis (principal); A04.72 Enterocolitis due to Clostridium difficile, not specified as recurrent; K51.00 Ulcerative (chronic) pancolitis without complications; N17.9 Acute kidney failure, unspecified; N18.4 Chronic kidney disease, stage 4 (severe); E44.0 Moderate protein-calorie malnutrition; E87.1 Hypo-osmolality and hyponatremia; E87.20 Acidosis, unspecified; R65.20 Severe sepsis without septic shock; I12.9 Hypertensive chronic kidney disease with stage 1 through stage 4 chronic kidney disease, or unspecified chronic kidney disease; N30.90 Cystitis, unspecified without hematuria; E11.22 Type 2 diabetes mellitus with diabetic chronic kidney disease; K62.89 Other specified diseases of anus and rectum; M10.9 Gout, unspecified; F10.90 Alcohol use, unspecified, uncomplicated; D63.1 Anemia in chronic kidney disease; E78.00 Pure hypercholesterolemia, unspecified; E78.1 Pure hyperglyceridemia; K57.30 Diverticulosis of large intestine without perforation or abscess without bleeding; R63.0 Anorexia; R53.81 Other malaise; N32.89 Other specified disorders of bladder; E86.1 Hypovolemia; E87.6 Hypokalemia; Z79.84 Long term (current) use of oral hypoglycemic drugs; Z79.899 Other long term (current) drug therapy; Z90.710 Acquired absence of both cervix and uterus; Z87.820 Personal history of traumatic brain injury; Z87.891 Personal history of nicotine dependence; Z87.19 Personal history of other diseases of the digestive system; Z82.49 Family history of ischemic heart disease and other diseases of the circulatory system
CPT/HCPCS: 36415; 36416; 36430; 74176; 76705; 80048; 80053; 80074; 81001; 82705; 83605; 83630; 83690; 84145; 85025; 86850; 86900; 86901; 87040; 87077; 87086; 87177; 87186; 87324; 87389; 87449; 87505; 87507; 96365; C9113; G0378; J0744; J1650; J1815; J2405; J2543; J3480; J3490; J7050; P9016

== ENCOUNTER 2023-04-28 08:47 | Inpatient (IN) | payer MEDICARE ==
[2023-04-28 09:43] LABS: #Basophils 0.1 thou/uL (0.0-0.2); #Neutrophils 12.7 thou/uL (1.40-6.50); %Basophils 0.4 % (0.0-1.0); %Eosinophils 0.1 % (0.0-10.0); %Monocytes 10.9 % (0.0-10.0); %Neutrophils 71.1 % (42.0-75.0); Hemoglobin 9.6 g/dL (12.0-16.0); Mean Corpuscular HGB CONC 31.4 g/dL (32.0-36.0); Mean Corpuscular Hemoglobin 28.2 pg (27.0-31.0); Mean Corpuscular Volume 89.7 fl (78.0-98.0); Mean Platelet Volume 11.9 fL (7.4-10.4); Platelet Count 809 10x3/uL (130-400); RBC Distribution Width 18.8 % (11.5-14.5); Red Blood Cell (RBC) Count 3.41 mill/uL (4.20-5.40); White Blood Cell (WBC) Count 17.8 10x3/uL (4.8-10.8)
[2023-04-28 10:06] LABS: ALT (SGPT) Less than 7 U/L (8-55); AST (SGOT) 11 U/L (5-34); Albumin 3.1 g/dL (3.4-4.8); Alkaline Phosphatase 107 U/L (40-110); Anion Gap 17 mmol/L (10-20); BUN (Urea Nitrogen) 39 mg/dL (9.8-20.1); Bilirubin, Total 0.7 mg/dL (0.2-1.2); Calc. Creatinine Clearance 0 mL/min (70-130); Calcium 10.1 mg/dL (7.8-10.44); Carbon Dioxide 24 mmol/L (23-31); Chloride 96 mmol/L (98-107); Estimated GFR 17; Globulin 4.1 g/dL (2.4-3.5); Glucose 280 mg/dL (83-110); Lipase 26 U/L (8-78); Potassium 4.4 mmol/L (3.5-5.1); Protein, Total 7.2 g/dL (5.8-8.1); Sodium 133 mmol/L (136-145)
[2023-04-28 10:29] LABS: Bacteria/HPF 4+ HPF (None Seen); Bilirubin Negative (Negative); Blood, Urine 3+ (Negative); CAUTI Indications for Culture Immunosuppressed; Clarity Extra Turbid (Clear); Glucose, Urine (Dipstick) 100 mg/dL (Negative); Ketone, Urine Negative (Negative); Leukocyte 500 Leu/uL (Negative); Nitrite Negative (Negative); Protein, Urine (Dipstick) 200 mg/dL (Neg-Trace); RBC/HPF 21-50 HPF (0-3); Specific Gravity, Urine 1.011 (1.002-1.036); Urobilinogen Normal mg/dL (Less than 2); WBC/HPF Greater than 50 HPF (0-3); pH, Urine 6.5 (5.0-9.0)
[2023-04-28 10:35] LABS: Urine Culture Reflex Yes Yes
[2023-04-28] MEDS ORDERED: cefTRIAXone (ROCEPHIN) 1 GM VIAL ONE (11:27)
[2023-04-28] MEDS ORDERED: [UNRECOGNIZED DRUG - REMARK] FS SCH ×2 (12:18→19:00)
[2023-04-28] MEDS ORDERED: Acetaminophen 325 MG TAB PO PRN (12:18)
[2023-04-28] MEDS ORDERED: Ondansetron PF 4 MG/2 ML Vial IVP PRN ×2 (12:18→19:00)
[2023-04-28] MEDS ORDERED: Vancomycin HCl 125 MG/5 ML (BATCHED) UDCUP PO SCH ×2 (12:30→18:00)
[2023-04-28] MEDS ORDERED: Sodium Chloride 0.9% 1,000 ML IV SCH (13:00)
[2023-04-28] MEDS ORDERED: Glucagon 1 MG/ML KIT IM PRN ×2 (13:01→19:01)
[2023-04-28] MEDS ORDERED: Dextrose 50% Abboject 50 ML SYRINGE SLOW IVP PRN ×2 (13:01→19:01)
[2023-04-28] MEDS ORDERED: HumaLOG 300 UNITS/3 ML VIAL SC PRN ×2 (13:01→19:01)
[2023-04-28] MEDS ORDERED: Dextrose 5% in Water 1,000 ML IV PRN ×2 (13:01→19:01)
[2023-04-28 14:51] LABS: Campy jejuni + coli by PCR Negative (Negative); STEC Shiga Toxin 1+2 Negative (Negative); Salmonella spp. by PCR Negative (Negative); Shigella spp + EIEC by PCR Negative (Negative)
[2023-04-28 19:36] VITALS: BMI 23.4
[2023-04-28] MEDS: Acetaminophen 325 MG TAB PO PRN (20:28)
[2023-04-28] MEDS: Sodium Chloride 0.9% 1,000 ML IV SCH (20:29)
[2023-04-28] MEDS: Famotidine 20 MG TAB PO SCH (20:30)
[2023-04-28] MEDS ORDERED: Propranolol 10 MG TAB PO SCH (21:00)
[2023-04-28] MEDS ORDERED: Famotidine 20 MG TAB PO SCH ×2 (21:00)
[2023-04-28] MEDS: Vancomycin HCl 125 MG/5 ML (BATCHED) UDCUP PO SCH (21:08)
[2023-04-28] MEDS ORDERED: glyBURIDE 5 MG TAB PO SCH (21:15)
[2023-04-28] MEDS ORDERED: Atorvastatin Calcium 10 MG TAB PO SCH (21:30)
[2023-04-28] MEDS: Propranolol 10 MG TAB PO SCH (21:41)
[2023-04-29] MEDS: Vancomycin HCl 125 MG/5 ML (BATCHED) UDCUP PO SCH ×4 (00:49→18:24)
[2023-04-29] MEDS: Sodium Chloride 0.9% 1,000 ML IV SCH ×2 (08:32→17:31)
[2023-04-29] MEDS: Propranolol 10 MG TAB PO SCH ×2 (08:41→22:01)
[2023-04-29] MEDS ORDERED: glyBURIDE 5 MG TAB PO SCH (09:00)
[2023-04-29] MEDS ORDERED: Insulin Glargine 30 UNITS/0.3 ML VIAL SC SCH ×2 (09:00)
[2023-04-29] MEDS ORDERED: Saccharomyces boulardii 250 MG CAP PO SCH ×2 (09:00)
[2023-04-29] MEDS ORDERED: HumaLOG 300 UNITS/3 ML VIAL SC PRN (11:34)
[2023-04-29 12:44] LABS: #Monocytes 1.3 thou/uL (0.11-0.59); #Neutrophils 12.3 thou/uL (1.40-6.50); %Basophils 0.2 % (0.0-1.0); %Eosinophils 0.2 % (0.0-10.0); %Lymphocytes 13.6 % (21.0-51.0); %Monocytes 8.2 % (0.0-10.0); %Neutrophils 76.7 % (42.0-75.0); Hemoglobin 7.9 g/dL (12.0-16.0); Mean Corpuscular Hemoglobin 28.4 pg (27.0-31.0); Mean Corpuscular Volume 91.7 fl (78.0-98.0); Mean Platelet Volume 11.5 fL (7.4-10.4); Platelet Count 691 10x3/uL (130-400); RBC Distribution Width 18.5 % (11.5-14.5); Red Blood Cell (RBC) Count 2.78 mill/uL (4.20-5.40)
[2023-04-29] MEDS: Acetaminophen 325 MG TAB PO PRN (13:13)
[2023-04-29 13:32] LABS: Anion Gap 12 mmol/L (10-20); BUN (Urea Nitrogen) 36 mg/dL (9.8-20.1); Calc. Creatinine Clearance 17 mL/min (70-130); Calcium 8.9 mg/dL (7.8-10.44); Carbon Dioxide 23 mmol/L (23-31); Chloride 104 mmol/L (98-107); Estimated GFR 20; Glucose 202 mg/dL (83-110); Potassium 4.1 mmol/L (3.5-5.1); Sodium 135 mmol/L (136-145)
[2023-04-29] MEDS: Saccharomyces boulardii 250 MG CAP PO SCH (22:00)
[2023-04-29] MEDS: Famotidine 20 MG TAB PO SCH (22:00)
[2023-04-29] MEDS: Atorvastatin Calcium 10 MG TAB PO SCH (22:01)
[2023-04-30] MEDS: Vancomycin HCl 125 MG/5 ML (BATCHED) UDCUP PO SCH ×4 (00:35→17:43)
[2023-04-30] MEDS: Acetaminophen 325 MG TAB PO PRN ×2 (01:17→06:49)
[2023-04-30] MEDS: Sodium Chloride 0.9% 1,000 ML IV SCH ×2 (01:19→20:42)
[2023-04-30 05:41] LABS: #Basophils 0.1 thou/uL (0.0-0.2); #Eosinphils 0.1 thou/uL (0.0-0.7); #Monocytes 0.9 thou/uL (0.11-0.59); #Neutrophils 8.6 thou/uL (1.40-6.50); %Basophils 0.4 % (0.0-1.0); %Eosinophils 0.6 % (0.0-10.0); %Lymphocytes 23.1 % (21.0-51.0); %Monocytes 7.1 % (0.0-10.0); %Neutrophils 67.8 % (42.0-75.0); Hemoglobin 7.5 g/dL (12.0-16.0); Mean Corpuscular HGB CONC 30.6 g/dL (32.0-36.0); Mean Corpuscular Hemoglobin 28.2 pg (27.0-31.0); Mean Corpuscular Volume 92.1 fl (78.0-98.0); Mean Platelet Volume 11.8 fL (7.4-10.4); Platelet Count 700 10x3/uL (130-400); RBC Distribution Width 18.3 % (11.5-14.5); Red Blood Cell (RBC) Count 2.66 mill/uL (4.20-5.40); White Blood Cell (WBC) Count 12.7 10x3/uL (4.8-10.8)
[2023-04-30 05:49] LABS: Manual Diff?? YES
[2023-04-30 06:02] LABS: Anion Gap 13 mmol/L (10-20); BUN (Urea Nitrogen) 33 mg/dL (9.8-20.1); Calc. Creatinine Clearance 19 mL/min (70-130); Carbon Dioxide 21 mmol/L (23-31); Chloride 108 mmol/L (98-107); Estimated GFR 22; Potassium 3.8 mmol/L (3.5-5.1); Sodium 138 mmol/L (136-145)
[2023-04-30 06:12] LABS: Glucose 49 mg/dL (83-110)
[2023-04-30 06:30] LABS: Anisocytosis SLIGHT = 6-15 cells HPF (0-5); Band 2 % (5-11); Elliptocytes SLIGHT = 2-5 cells HPF (0-1); Eosinophils 2 % (0-10); Hypochromia SLIGHT = 6-15 cells HPF (0-5); Large Platelets 11.7 % (0-5); Lymphocytes 19 % (21-51); Monocytes 4 % (0-10); Neutrophil 73 % (42-75); Platelet Adequacy Comment Platelets Increased; Polychromasia SLIGHT = 2-3 cells HPF (0-2); Total Cell Count 103
[2023-04-30] MEDS: Propranolol 10 MG TAB PO SCH ×2 (08:29→20:41)
[2023-04-30] MEDS: Saccharomyces boulardii 250 MG CAP PO SCH ×2 (08:29→20:41)
[2023-04-30] MEDS ORDERED: Insulin Glargine 30 UNITS/0.3 ML VIAL SC SCH (09:00)
[2023-04-30] MEDS: cefTRIAXone\\ROCEPHIN 2 GM in Sodium Chloride 0.9% 100 ML IVPB SCH (12:09)
[2023-04-30] MEDS: Atorvastatin Calcium 10 MG TAB PO SCH (20:41)
[2023-04-30] MEDS: Famotidine 20 MG TAB PO SCH (20:41)
[2023-05-01] MEDS: Vancomycin HCl 125 MG/5 ML (BATCHED) UDCUP PO SCH ×4 (00:52→17:03)
[2023-05-01] MEDS: Acetaminophen 325 MG TAB PO PRN (00:56)
[2023-05-01] MEDS: Saccharomyces boulardii 250 MG CAP PO SCH ×2 (08:18→20:14)
[2023-05-01] MEDS: Propranolol 10 MG TAB PO SCH ×2 (08:21→20:14)
[2023-05-01 08:42] LABS: Hemoglobin 8.3 g/dL (12.0-16.0); Mean Corpuscular HGB CONC 30.3 g/dL (32.0-36.0); Mean Corpuscular Hemoglobin 28.4 pg (27.0-31.0); Mean Corpuscular Volume 93.8 fl (78.0-98.0); Mean Platelet Volume 11.4 fL (7.4-10.4); Platelet Count 776 10x3/uL (130-400); RBC Distribution Width 18.2 % (11.5-14.5); Red Blood Cell (RBC) Count 2.92 mill/uL (4.20-5.40); White Blood Cell (WBC) Count 8.2 10x3/uL (4.8-10.8)
[2023-05-01 08:59] LABS: Delete Auto Diff?? YES; Manual Diff?? YES
[2023-05-01 09:01] LABS: Anion Gap 11 mmol/L (10-20); BUN (Urea Nitrogen) 23 mg/dL (9.8-20.1); Calc. Creatinine Clearance 21 mL/min (70-130); Calcium 9.3 mg/dL (7.8-10.44); Carbon Dioxide 21 mmol/L (23-31); Chloride 110 mmol/L (98-107); Estimated GFR 25; Glucose 140 mg/dL (83-110); Potassium 4.2 mmol/L (3.5-5.1); Sodium 138 mmol/L (136-145)
[2023-05-01 10:34] LABS: Anisocytosis SLIGHT = 6-15 cells HPF (0-5); Band 1 % (5-11); Burr Cells SLIGHT = 2-5 cells HPF (0-1); CellaVision Operator ID LAB.NR; Eosinophils 2 % (0-10); Large Platelets 21.8 % (0-5); Lymphocytes 30 % (21-51); Monocytes 3 % (0-10); Neutrophil 64 % (42-75); Platelet Adequacy Comment Platelets Increased; Polychromasia SLIGHT = 2-3 cells HPF (0-2); Smudge Cells 15.8 %; Total Cell Count 101; Vacuoles SLIGHT
[2023-05-01] MEDS: cefTRIAXone\\ROCEPHIN 2 GM in Sodium Chloride 0.9% 100 ML IVPB SCH (12:55)
[2023-05-01] MEDS: Sodium Chloride 0.9% 1,000 ML IV SCH (15:28)
[2023-05-01] MEDS: HumaLOG 300 UNITS/3 ML VIAL SC PRN ×2 (17:03→22:07)
[2023-05-01 18:44] LABS: Bacteria/HPF 3+ HPF (None Seen); Bilirubin Negative (Negative); Blood, Urine 1+ (Negative); CAUTI Indications for Culture Dysuria,urgency,freq; Clarity Extra Turbid (Clear); Glucose, Urine (Dipstick) Greater than 1000 mg/dL (Negative); Ketone, Urine Negative (Negative); Leukocyte 500 Leu/uL (Negative); Nitrite Negative (Negative); Protein, Urine (Dipstick) 70 mg/dL (Neg-Trace); Renal Epithelial 0-3 HPF (None Seen); Specific Gravity, Urine 1.009 (1.002-1.036); Urobilinogen Normal mg/dL (Less than 2); WBC/HPF Greater than 50 HPF (0-3); Yeast-Budding 1+ HPF (None Seen)
[2023-05-01 18:46] LABS: Urine Culture Reflex Yes Yes
[2023-05-01] MEDS: Famotidine 20 MG TAB PO SCH (20:13)
[2023-05-01] MEDS: Atorvastatin Calcium 10 MG TAB PO SCH (20:14)
[2023-05-02] MEDS: Vancomycin HCl 125 MG/5 ML (BATCHED) UDCUP PO SCH ×3 (00:30→14:18)
[2023-05-02] MEDS: Acetaminophen 325 MG TAB PO PRN (00:52)
[2023-05-02] MEDS: HumaLOG 300 UNITS/3 ML VIAL SC PRN (06:48)
[2023-05-02] MEDS: Propranolol 10 MG TAB PO SCH (10:10)
[2023-05-02] MEDS: Saccharomyces boulardii 250 MG CAP PO SCH (10:11)
[2023-05-02 15:49] VITALS: BP 175/73; TEMP 98.3
[2023-05-12] MEDS ORDERED: Vancomycin HCl 125 MG/5 ML (BATCHED) UDCUP PO SCH ×2 (21:00)
[2023-05-20] MEDS ORDERED: Vancomycin HCl 125 MG/5 ML (BATCHED) UDCUP PO SCH ×2 (09:00)
[2023-05-28] MEDS ORDERED: Vancomycin HCl 125 MG/5 ML (BATCHED) UDCUP PO SCH ×2 (09:00)
== END 2023-05-02 15:25 | disposition home or self-care (01) | DRG 872 ==
LOC: ERS 08:47 → SURG A 15:10
PROVIDERS: ADMIT Hospitalist; ATTEND Internal Medicine
DX: A41.9 Sepsis, unspecified organism (principal); N39.0 Urinary tract infection, site not specified; N17.9 Acute kidney failure, unspecified; E44.0 Moderate protein-calorie malnutrition; A04.72 Enterocolitis due to Clostridium difficile, not specified as recurrent; E11.22 Type 2 diabetes mellitus with diabetic chronic kidney disease; M10.9 Gout, unspecified; N18.30 Chronic kidney disease, stage 3 unspecified; E78.2 Mixed hyperlipidemia; I12.9 Hypertensive chronic kidney disease with stage 1 through stage 4 chronic kidney disease, or unspecified chronic kidney disease; E11.649 Type 2 diabetes mellitus with hypoglycemia without coma; E11.65 Type 2 diabetes mellitus with hyperglycemia; Z79.899 Other long term (current) drug therapy; Z90.710 Acquired absence of both cervix and uterus; Z87.891 Personal history of nicotine dependence; Z82.49 Family history of ischemic heart disease and other diseases of the circulatory system; Z79.2 Long term (current) use of antibiotics; Z68.23 Body mass index [BMI] 23.0-23.9, adult
CPT/HCPCS: 36415; 36416; 71045; 74176; 80048; 80053; 81001; 83605; 83690; 84484; 85025; 87040; 87076; 87077; 87086; 87149; 87324; 87449; 87505; 96361; 96365; J0696; J1650; J1815; J3490; J7050

== ENCOUNTER 2023-07-06 08:21 | Day surgery (SDC) | payer MEDICARE ==
[2023-07-06 08:33] LABS: #Eosinphils 0.1 thou/uL (0.0-0.7); #Monocytes 0.2 thou/uL (0.11-0.59); #Neutrophils 6.3 thou/uL (1.40-6.50); %Basophils 0.4 % (0.0-1.0); %Eosinophils 0.5 % (0.0-10.0); %Lymphocytes 27.8 % (21.0-51.0); %Neutrophils 68.3 % (42.0-75.0); Hematocrit 28.4 % (36.0-47.0); Hemoglobin 8.6 g/dL (12.0-16.0); Mean Corpuscular HGB CONC 30.3 g/dL (32.0-36.0); Mean Corpuscular Hemoglobin 27.7 pg (27.0-31.0); Mean Corpuscular Volume 91.6 fl (78.0-98.0); Platelet Count 190 10x3/uL (130-400); RBC Distribution Width 20.4 % (11.5-14.5); White Blood Cell (WBC) Count 9.3 10x3/uL (4.8-10.8)
[2023-07-06 09:16] LABS: PTT 33.3 sec (22.9-36.1); Prothrombin Time 13.6 sec (12.0-14.7)
[2023-07-06 09:35] VITALS: BP 127/89; TEMP 98.6
== END 2023-07-06 13:00 | disposition home or self-care (01) ==
LOC: CT 08:21
PROVIDERS: ATTEND Internal Medicine Hematology & Oncology
DX: D50.0 Iron deficiency anemia secondary to blood loss (chronic) (principal); E11.22 Type 2 diabetes mellitus with diabetic chronic kidney disease; I12.9 Hypertensive chronic kidney disease with stage 1 through stage 4 chronic kidney disease, or unspecified chronic kidney disease; N18.31 Chronic kidney disease, stage 3a; D63.1 Anemia in chronic kidney disease; D53.9 Nutritional anemia, unspecified; D75.81 Myelofibrosis; D47.3 Essential (hemorrhagic) thrombocythemia
CPT/HCPCS: 20225; 77002; 85025; 85610; 85730; 88184; 88185; 88237; 88264; 88280

== ENCOUNTER 2023-08-11 14:26 | Inpatient (IN) | payer MEDICARE ==
[2023-08-11 15:52] LABS: #Monocytes 0.1 thou/uL (0.11-0.59); #Neutrophils 15.7 thou/uL (1.40-6.50); %Basophils 0.2 % (0.0-1.0); %Lymphocytes 5.4 % (21.0-51.0); %Monocytes 0.8 % (0.0-10.0); %Neutrophils 90.7 % (42.0-75.0); Hematocrit 22.1 % (36.0-47.0); Hemoglobin 7.2 g/dL (12.0-16.0); Mean Corpuscular HGB CONC 32.6 g/dL (32.0-36.0); Mean Corpuscular Hemoglobin 30.8 pg (27.0-31.0); Mean Corpuscular Volume 94.4 fl (78.0-98.0); Mean Platelet Volume 11.9 fL (7.4-10.4); Red Blood Cell (RBC) Count 2.34 mill/uL (4.20-5.40); White Blood Cell (WBC) Count 17.4 10x3/uL (4.8-10.8)
[2023-08-11 15:54] LABS: Platelet Count 97 10x3/uL (130-400)
[2023-08-11 16:17] LABS: ALT (SGPT) 9 U/L (8-55); AST (SGOT) 10 U/L (5-34); Albumin 3.3 g/dL (3.4-4.8); Alkaline Phosphatase 116 U/L (40-110); Anion Gap 22 mmol/L (10-20); BUN (Urea Nitrogen) 106 mg/dL (9.8-20.1); Bilirubin, Total 0.7 mg/dL (0.2-1.2); Calc. Creatinine Clearance 0 mL/min (70-130); Calcium 10.8 mg/dL (7.8-10.44); Carbon Dioxide 23 mmol/L (23-31); Chloride 85 mmol/L (98-107); Estimated GFR 7; Globulin 5.1 g/dL (2.4-3.5); Protein, Total 8.4 g/dL (5.8-8.1); Sodium 124 mmol/L (136-145)
[2023-08-11 16:25] LABS: Glucose 704 mg/dL (83-110); Potassium 6.2 mmol/L (3.5-5.1)
[2023-08-11 16:50] LABS: Actual Bicarbonate (HCO3v) 24.1 mEq/L (22-28); Base Excess -0.9 mEq/L (-2.0 to +3.0); Calcium, Ionized (venous) 1.18 mmol/L (1.16-1.32); Chloride (VBG) 90 mmol/L (98-106); Hematocrit-VBG 22 % (36.0-47.0); Hemoglobin (Hb) 7.6 g/dL (11.7-16.1); Sodium 126 mmol/L (133-146); pH (venous) 7.384 (7.32-7.43)
[2023-08-11] MEDS ORDERED: Vancomycin HCl 125 MG/5 ML (BATCHED) UDCUP PO SCH (17:00)
[2023-08-11] MEDS ORDERED: LOKELMA 10 GM PACKET PO SCH (17:00)
[2023-08-11 17:17] LABS: Troponin I 0.017 ng/mL (< 0.028)
[2023-08-11 17:21] LABS: Magnesium 1.9 mg/dL (1.6-2.6)
[2023-08-11] MEDS ORDERED: Insulin Regular 300 UNITS/3 ML VIAL ONE (17:27)
[2023-08-11] MEDS ORDERED: cefTRIAXone (ROCEPHIN) 1 GM VIAL ONE (17:27)
[2023-08-11 17:39] LABS: Phosphorus 7.1 mg/dL (2.3-4.7)
[2023-08-11 17:41] LABS: Bacteria/HPF 2+ HPF (None Seen); Bilirubin Negative (Negative); Blood, Urine 2+ (Negative); CAUTI Indications for Culture Dysuria,urgency,freq; Clarity Turbid (Clear); Glucose, Urine (Dipstick) Greater than 1000 mg/dL (Negative); Ketone, Urine Negative (Negative); Leukocyte 500 Leu/uL (Negative); Nitrite Negative (Negative); Protein, Urine (Dipstick) 50 mg/dL (Neg-Trace); Specific Gravity, Urine 1.009 (1.002-1.036); Squamous Epithelial 0-3 HPF (0-3); Urobilinogen Normal mg/dL (Less than 2); WBC/HPF Greater than 50 HPF (0-3)
[2023-08-11 17:50] LABS: Urine Culture Reflex Yes Yes
[2023-08-11] MEDS ORDERED: INSULIN REGULAR IN 0.9 % NACL 100 UNITS/100 ML BAG ONE (18:34)
[2023-08-11 19:43] LABS: Anion Gap 20 mmol/L (10-20); BUN (Urea Nitrogen) 93 mg/dL (9.8-20.1); Calc. Creatinine Clearance 0 mL/min (70-130); Calcium 9.8 mg/dL (7.8-10.44); Carbon Dioxide 22 mmol/L (23-31); Chloride 92 mmol/L (98-107); Estimated GFR 8; Potassium 4.7 mmol/L (3.5-5.1); Sodium 129 mmol/L (136-145)
[2023-08-11 19:47] LABS: Glucose 400 mg/dL (83-110)
[2023-08-11] MEDS ORDERED: Vancomycin 1 GM/200 ML (FROZEN) BAG ONE (20:12)
[2023-08-11] MEDS ORDERED: Ondansetron ODT 4 MG TAB PO PRN (20:42)
[2023-08-11] MEDS ORDERED: Acetaminophen 325 MG TAB PO PRN (20:42)
[2023-08-11] MEDS ORDERED: Dextrose 5 %-0.45 % NaCl 1,000 ML IV PRN (20:44)
[2023-08-11] MEDS ORDERED: D5 1/2 NS w/20 mEq KCL 1,000 ML IV PRN (20:44)
[2023-08-11] MEDS ORDERED: Sodium Chloride 0.9% 1,000 ML IV PRN ×4 (20:44)
[2023-08-11] MEDS ORDERED: NS 0.9% w/ 20 MEQ KCL 1,000 ML IV PRN ×2 (20:44)
[2023-08-11] MEDS ORDERED: Dextrose 50% Abboject 50 ML SYRINGE SLOW IVP PRN (20:44)
[2023-08-11] MEDS ORDERED: HUMULIN R 100 UNITS in Sodium Chloride 0.9% 100 ML IVPB SCH (20:45)
[2023-08-11] MEDS ORDERED: Vancomycin Dose by Levels Sliding Scale (Wt <71) FS SCH (21:00)
[2023-08-11] MEDS ORDERED: Communication Order-Pharmacy FS PRN (21:13)
[2023-08-11 22:34] LABS: Calcium 10.1 mg/dL (7.8-10.44); Chloride 95 mmol/L (98-107); Glucose 135 mg/dL (83-110); Potassium 4.2 mmol/L (3.5-5.1); Sodium 133 mmol/L (136-145)
[2023-08-11 22:35] LABS: Anion Gap 20 mmol/L (10-20); Carbon Dioxide 22 mmol/L (23-31)
[2023-08-11 22:37] LABS: Calc. Creatinine Clearance 9 mL/min (70-130); Estimated GFR 9
[2023-08-11 22:38] LABS: BUN (Urea Nitrogen) 93 mg/dL (9.8-20.1)
[2023-08-12 05:01] LABS: Anion Gap 19 mmol/L (10-20); BUN (Urea Nitrogen) 91 mg/dL (9.8-20.1); Calc. Creatinine Clearance 9 mL/min (70-130); Calcium 9.8 mg/dL (7.8-10.44); Carbon Dioxide 23 mmol/L (23-31); Chloride 93 mmol/L (98-107); Estimated GFR 9; Glucose 244 mg/dL (83-110); Potassium 4.5 mmol/L (3.5-5.1); Sodium 130 mmol/L (136-145)
[2023-08-12 05:58] LABS: #Monocytes 0.2 thou/uL (0.11-0.59); #Neutrophils 11.4 thou/uL (1.40-6.50); %Basophils 0.2 % (0.0-1.0); %Monocytes 1.1 % (0.0-10.0); Hematocrit 18.9 % (36.0-47.0); Hemoglobin 6.1 g/dL (12.0-16.0); Mean Corpuscular HGB CONC 32.3 g/dL (32.0-36.0); Mean Corpuscular Volume 95.9 fl (78.0-98.0); RBC Distribution Width 22.8 % (11.5-14.5); Red Blood Cell (RBC) Count 1.97 mill/uL (4.20-5.40); White Blood Cell (WBC) Count 13.3 10x3/uL (4.8-10.8)
[2023-08-12 06:04] LABS: Platelet Count 69 10x3/uL (130-400)
[2023-08-12 08:32] VITALS: BMI 20.6
[2023-08-12 08:49] LABS: HBSAB Concentration Less than 8.00 mIU/mL; HBSAg Index 0.16 S/CO (0-0.99); Hep B Surf AB Non-Reactive (NonReactive); Hep B Surf Ag Non-Reactive S/CO (NonReactive)
[2023-08-12] MEDS ORDERED: Famotidine 20 MG TAB PO SCH ×2 (09:00→21:00)
[2023-08-12] MEDS ORDERED: Vancomycin 1 GM in Premix 1 BAG IVPB SCH ×2 (09:00→19:45)
[2023-08-12 11:44] LABS: #Monocytes 0.1 thou/uL (0.11-0.59); #Neutrophils 10.4 thou/uL (1.40-6.50); %Basophils 0.2 % (0.0-1.0); %Eosinophils 0.1 % (0.0-10.0); %Lymphocytes 8.6 % (21.0-51.0); %Neutrophils 87.6 % (42.0-75.0); Hematocrit 18.1 % (36.0-47.0); Hemoglobin 5.8 g/dL (12.0-16.0); Mean Corpuscular Hemoglobin 30.9 pg (27.0-31.0); Mean Corpuscular Volume 96.3 fl (78.0-98.0); Mean Platelet Volume 12.7 fL (7.4-10.4); RBC Distribution Width 23.1 % (11.5-14.5); Red Blood Cell (RBC) Count 1.88 mill/uL (4.20-5.40); White Blood Cell (WBC) Count 11.8 10x3/uL (4.8-10.8)
[2023-08-12 11:46] LABS: Platelet Count 65 10x3/uL (130-400)
[2023-08-12 12:13] LABS: Chloride 91 mmol/L (98-107); Potassium 4.9 mmol/L (3.5-5.1); Sodium 127 mmol/L (136-145)
[2023-08-12 12:14] LABS: Calcium 9.7 mg/dL (7.8-10.44)
[2023-08-12 12:16] LABS: Anion Gap 18 mmol/L (10-20); Carbon Dioxide 23 mmol/L (23-31)
[2023-08-12 12:18] LABS: Calc. Creatinine Clearance 7 mL/min (70-130); Estimated GFR 8
[2023-08-12 12:19] LABS: BUN (Urea Nitrogen) 94 mg/dL (9.8-20.1)
[2023-08-12 12:46] LABS: Glucose 509 mg/dL (83-110)
[2023-08-12] MEDS ORDERED: Dextrose 5% in Water 1,000 ML IV PRN (13:08)
[2023-08-12] MEDS ORDERED: Dextrose 50% Abboject 50 ML SYRINGE SLOW IVP PRN (13:08)
[2023-08-12] MEDS ORDERED: Glucagon 1 MG/ML KIT IM PRN (13:08)
[2023-08-12] MEDS ORDERED: Insulin Regular 300 UNITS/3 ML VIAL SC SCH (13:15)
[2023-08-12] MEDS ORDERED: Iopamidol 370 76% 100 ML VIAL ONE (13:33)
[2023-08-12] MEDS: Sodium Chloride 0.9% 1,000 ML IV SCH (14:35)
[2023-08-12] MEDS ORDERED: FLU VACC QS2023(65UP)/MF59C/PF 60 MCG/0.5 ML SYRINGE IM ONE (17:30)
[2023-08-12 19:20] LABS: Vancomycin, Random Less than 1.1 ug/mL (See Comment)
[2023-08-12 19:33] LABS: Glucose 383 mg/dL (83-110)
[2023-08-12] MEDS ORDERED: Cefepime 1 GM in Sodium Chloride 0.9% 100 ML IVPB SCH (22:00)
[2023-08-12 22:26] LABS: Hemoglobin 7.7 g/dL (12.0-16.0)
[2023-08-12] MEDS ORDERED: Pharmacy to Dose : CEFEPIME IVPB PRN (23:09)
[2023-08-13] MEDS: Sodium Chloride 0.9% 1,000 ML IV SCH ×2 (02:45→19:17)
[2023-08-13 07:45] LABS: #Monocytes 0.1 thou/uL (0.11-0.59); #Neutrophils 6.8 thou/uL (1.40-6.50); %Basophils 0.2 % (0.0-1.0); %Eosinophils 0.1 % (0.0-10.0); %Lymphocytes 15.5 % (21.0-51.0); %Monocytes 0.9 % (0.0-10.0); %Neutrophils 81.1 % (42.0-75.0); Hematocrit 27.6 % (36.0-47.0); Hemoglobin 8.8 g/dL (12.0-16.0); Mean Corpuscular HGB CONC 31.9 g/dL (32.0-36.0); Mean Corpuscular Hemoglobin 31.1 pg (27.0-31.0); Mean Corpuscular Volume 97.5 fl (78.0-98.0); Mean Platelet Volume 11.5 fL (7.4-10.4); RBC Distribution Width 20.4 % (11.5-14.5); Red Blood Cell (RBC) Count 2.83 mill/uL (4.20-5.40); White Blood Cell (WBC) Count 8.5 10x3/uL (4.8-10.8)
[2023-08-13 07:47] LABS: Platelet Count 51 10x3/uL (130-400)
[2023-08-13 08:06] LABS: Anion Gap 17 mmol/L (10-20); BUN (Urea Nitrogen) 75 mg/dL (9.8-20.1); Calc. Creatinine Clearance 10 mL/min (70-130); Calcium 9.4 mg/dL (7.8-10.44); Carbon Dioxide 19 mmol/L (23-31); Chloride 100 mmol/L (98-107); Estimated GFR 12; Potassium 3.9 mmol/L (3.5-5.1); Sodium 132 mmol/L (136-145)
[2023-08-13 08:14] LABS: Glucose 54 mg/dL (83-110)
[2023-08-13] MEDS: Insulin Regular 300 UNITS/3 ML VIAL SC PRN ×2 (12:02→17:11)
[2023-08-13] MEDS: Cefepime 0.5 GM, Admixture Fee 1 EACH in Sodium Chloride 0.9% 100 ML IVPB SCH (22:19)
[2023-08-14 04:03] LABS: #Monocytes 0.1 thou/uL (0.11-0.59); %Basophils 0.2 % (0.0-1.0); %Eosinophils 0.4 % (0.0-10.0); %Lymphocytes 17.8 % (21.0-51.0); %Monocytes 1.7 % (0.0-10.0); %Neutrophils 76.8 % (42.0-75.0); Hematocrit 20.6 % (36.0-47.0); Hemoglobin 6.7 g/dL (12.0-16.0); Mean Corpuscular HGB CONC 32.5 g/dL (32.0-36.0); Mean Corpuscular Hemoglobin 31.2 pg (27.0-31.0); Mean Corpuscular Volume 95.8 fl (78.0-98.0); Mean Platelet Volume 12.9 fL (7.4-10.4); RBC Distribution Width 20.6 % (11.5-14.5); Red Blood Cell (RBC) Count 2.15 mill/uL (4.20-5.40); White Blood Cell (WBC) Count 5.2 10x3/uL (4.8-10.8)
[2023-08-14] MEDS: Sodium Chloride 0.9% 1,000 ML IV SCH ×2 (04:04→18:09)
[2023-08-14 04:30] LABS: ALT (SGPT) 11 U/L (8-55); AST (SGOT) 15 U/L (5-34); Albumin 2.2 g/dL (3.4-4.8); Alkaline Phosphatase 76 U/L (40-110); Anion Gap 13 mmol/L (10-20); BUN (Urea Nitrogen) 67 mg/dL (9.8-20.1); Bilirubin, Total 0.3 mg/dL (0.2-1.2); Calc. Creatinine Clearance 11 mL/min (70-130); Calcium 8.7 mg/dL (7.8-10.44); Carbon Dioxide 18 mmol/L (23-31); Chloride 104 mmol/L (98-107); Estimated GFR 13; Globulin 3.6 g/dL (2.4-3.5); Glucose 66 mg/dL (83-110); Potassium 3.8 mmol/L (3.5-5.1); Protein, Total 5.8 g/dL (5.8-8.1); Sodium 131 mmol/L (136-145)
[2023-08-14 04:38] LABS: Platelet Count 37 10x3/uL (130-400)
[2023-08-14 05:05] LABS: Anisocytosis SLIGHT = 6-15 cells HPF (0-5); CellaVision Operator ID lab.abc; Platelet Adequacy Comment Significant decrease; Polychromasia SLIGHT = 2-3 cells HPF (0-2)
[2023-08-14] MEDS ORDERED: Pantoprazole 40 MG VIAL IVP SCH (09:00)
[2023-08-14] MEDS ORDERED: Epoetin (ESRD) 10,000 UNITS/ML VIAL SC SCH (10:30)
[2023-08-14] MEDS ORDERED: Epoetin (ESRD) 20,000 UNITS/ML MDV SC SCH (14:00)
[2023-08-14] MEDS: Propranolol 10 MG TAB PO SCH (20:52)
[2023-08-14] MEDS: Insulin Regular 300 UNITS/3 ML VIAL SC PRN (21:21)
[2023-08-14] MEDS: Cefepime 0.5 GM, Admixture Fee 1 EACH in Sodium Chloride 0.9% 100 ML IVPB SCH (21:21)
[2023-08-15] MEDS: Insulin Regular 300 UNITS/3 ML VIAL SC PRN ×4 (00:37→21:25)
[2023-08-15] MEDS: Sodium Chloride 0.9% 1,000 ML IV SCH ×3 (00:39→21:26)
[2023-08-15 05:28] LABS: #Monocytes 0.1 thou/uL (0.11-0.59); #Neutrophils 2.3 thou/uL (1.40-6.50); %Basophils 0.3 % (0.0-1.0); %Eosinophils 0.6 % (0.0-10.0); %Lymphocytes 22.4 % (21.0-51.0); %Neutrophils 69.5 % (42.0-75.0); Hematocrit 25.5 % (36.0-47.0); Hemoglobin 8.1 g/dL (12.0-16.0); Mean Corpuscular HGB CONC 31.8 g/dL (32.0-36.0); Mean Corpuscular Hemoglobin 30.8 pg (27.0-31.0); Mean Platelet Volume 11.2 fL (7.4-10.4); RBC Distribution Width 19.9 % (11.5-14.5); Red Blood Cell (RBC) Count 2.63 mill/uL (4.20-5.40); White Blood Cell (WBC) Count 3.4 10x3/uL (4.8-10.8)
[2023-08-15 06:11] LABS: ALT (SGPT) 12 U/L (8-55); AST (SGOT) 13 U/L (5-34); Albumin 2.3 g/dL (3.4-4.8); Alkaline Phosphatase 78 U/L (40-110); Anion Gap 15 mmol/L (10-20); BUN (Urea Nitrogen) 50 mg/dL (9.8-20.1); Bilirubin, Total 0.4 mg/dL (0.2-1.2); Calc. Creatinine Clearance 14 mL/min (70-130); Calcium 8.7 mg/dL (7.8-10.44); Carbon Dioxide 16 mmol/L (23-31); Chloride 109 mmol/L (98-107); Estimated GFR 17; Globulin 3.8 g/dL (2.4-3.5); Glucose 95 mg/dL (83-110); Potassium 4.1 mmol/L (3.5-5.1); Protein, Total 6.1 g/dL (5.8-8.1); Sodium 136 mmol/L (136-145)
[2023-08-15 06:58] LABS: Platelet Count 38 10x3/uL (130-400)
[2023-08-15] MEDS: Magnesium Oxide 400 MG TAB PO SCH ×2 (09:08→17:36)
[2023-08-15] MEDS: Cyanocobalamin (Vitamin B-12) 1,000 MCG TAB PO SCH (09:08)
[2023-08-15] MEDS: Calcitriol 0.25 MCG CAP PO SCH (09:08)
[2023-08-15] MEDS: Ferrous Gluconate 324 MG TAB PO SCH (09:08)
[2023-08-15] MEDS: Saccharomyces boulardii 250 MG CAP PO SCH (09:09)
[2023-08-15] MEDS: Propranolol 10 MG TAB PO SCH ×2 (09:09→21:24)
[2023-08-15] MEDS ORDERED: Sodium Bicarbonate 150 MEQ in Dextrose 5% in Water 1,000 ML IV SCH (21:15)
[2023-08-15] MEDS ORDERED: cefTRIAXone\\ROCEPHIN 1 GM in Sodium Chloride 0.9% 100 ML IVPB SCH (22:00)
[2023-08-16 04:08] LABS: Hematocrit 24.2 % (36.0-47.0); Hemoglobin 7.9 g/dL (12.0-16.0)
[2023-08-16 04:17] LABS: Platelet Count 40 10x3/uL (130-400)
[2023-08-16 04:34] LABS: Anion Gap 14 mmol/L (10-20); BUN (Urea Nitrogen) 40 mg/dL (9.8-20.1); Calc. Creatinine Clearance 17 mL/min (70-130); Calcium 8.5 mg/dL (7.8-10.44); Carbon Dioxide 20 mmol/L (23-31); Chloride 106 mmol/L (98-107); Estimated GFR 21; Glucose 148 mg/dL (83-110); Potassium 3.7 mmol/L (3.5-5.1); Sodium 136 mmol/L (136-145)
[2023-08-16] MEDS: Saccharomyces boulardii 250 MG CAP PO SCH (08:23)
[2023-08-16] MEDS: Propranolol 10 MG TAB PO SCH ×2 (08:23→19:58)
[2023-08-16] MEDS: Magnesium Oxide 400 MG TAB PO SCH ×2 (08:23→16:31)
[2023-08-16] MEDS: Calcitriol 0.25 MCG CAP PO SCH (08:23)
[2023-08-16] MEDS: Ferrous Gluconate 324 MG TAB PO SCH (08:23)
[2023-08-16] MEDS: Cyanocobalamin (Vitamin B-12) 1,000 MCG TAB PO SCH (08:23)
[2023-08-16] MEDS: Sodium Chloride 0.9% 1,000 ML IV SCH ×2 (08:25→11:14)
[2023-08-16] MEDS: Insulin Regular 300 UNITS/3 ML VIAL SC PRN ×2 (11:14→16:32)
[2023-08-16 15:00] VITALS: BP 129/84
[2023-08-16] MEDS: Cefepime 1 GM in Sodium Chloride 0.9% 100 ML IVPB SCH (16:31)
[2023-08-16] MEDS ORDERED: HumaLOG 300 UNITS/3 ML VIAL SC PRN (19:18)
[2023-08-16] MEDS: Famotidine 20 MG TAB PO SCH (19:58)
[2023-08-16] MEDS: Atorvastatin Calcium 10 MG TAB PO SCH (19:58)
[2023-08-16] MEDS: Sodium Bicarbonate Tab 325 MG TAB PO SCH (21:53)
[2023-08-17] MEDS: Sodium Chloride 0.9% 1,000 ML IV SCH (05:58)
[2023-08-17 06:42] LABS: #Monocytes 0.2 thou/uL (0.11-0.59); #Neutrophils 1.9 thou/uL (1.40-6.50); %Basophils 0.6 % (0.0-1.0); %Eosinophils 0.8 % (0.0-10.0); %Lymphocytes 38.8 % (21.0-51.0); %Monocytes 4.2 % (0.0-10.0); %Neutrophils 51.2 % (42.0-75.0); Hematocrit 24.6 % (36.0-47.0); Hemoglobin 7.8 g/dL (12.0-16.0); Mean Corpuscular HGB CONC 31.7 g/dL (32.0-36.0); Mean Corpuscular Hemoglobin 31.3 pg (27.0-31.0); Mean Corpuscular Volume 98.8 fl (78.0-98.0); Mean Platelet Volume 13.2 fL (7.4-10.4); Red Blood Cell (RBC) Count 2.49 mill/uL (4.20-5.40); White Blood Cell (WBC) Count 3.6 10x3/uL (4.8-10.8)
[2023-08-17 07:09] LABS: Anion Gap 12 mmol/L (10-20); BUN (Urea Nitrogen) 35 mg/dL (9.8-20.1); Calc. Creatinine Clearance 18 mL/min (70-130); Calcium 8.7 mg/dL (7.8-10.44); Carbon Dioxide 23 mmol/L (23-31); Chloride 105 mmol/L (98-107); Estimated GFR 21; Glucose 163 mg/dL (83-110); Potassium 3.6 mmol/L (3.5-5.1); Sodium 136 mmol/L (136-145)
[2023-08-17 07:34] LABS: Platelet Count 49 10x3/uL (130-400)
[2023-08-17] MEDS: Cyanocobalamin (Vitamin B-12) 1,000 MCG TAB PO SCH (08:21)
[2023-08-17] MEDS: Magnesium Oxide 400 MG TAB PO SCH ×2 (08:21→17:32)
[2023-08-17] MEDS: Sodium Bicarbonate Tab 325 MG TAB PO SCH ×2 (08:21→20:53)
[2023-08-17] MEDS: Saccharomyces boulardii 250 MG CAP PO SCH (08:21)
[2023-08-17] MEDS: Calcitriol 0.25 MCG CAP PO SCH (08:21)
[2023-08-17] MEDS: Propranolol 10 MG TAB PO SCH ×2 (08:21→20:53)
[2023-08-17] MEDS: Ferrous Gluconate 324 MG TAB PO SCH (08:21)
[2023-08-17] MEDS: HumaLOG 300 UNITS/3 ML VIAL SC PRN ×2 (13:59→17:32)
[2023-08-17] MEDS: Cefepime 1 GM in Sodium Chloride 0.9% 100 ML IVPB SCH (17:32)
[2023-08-17] MEDS: Famotidine 20 MG TAB PO SCH (20:53)
[2023-08-17] MEDS: Atorvastatin Calcium 10 MG TAB PO SCH (20:53)
[2023-08-18 06:38] LABS: Hematocrit 24.9 % (36.0-47.0); Hemoglobin 7.9 g/dL (12.0-16.0); Mean Corpuscular HGB CONC 31.7 g/dL (32.0-36.0); Mean Corpuscular Hemoglobin 31.1 pg (27.0-31.0); Mean Platelet Volume 12.6 fL (7.4-10.4); RBC Distribution Width 21.5 % (11.5-14.5); Red Blood Cell (RBC) Count 2.54 mill/uL (4.20-5.40)
[2023-08-18 06:52] LABS: Delete Auto Diff?? YES; Manual Diff?? YES; Platelet Count 62 10x3/uL (130-400)
[2023-08-18 07:02] LABS: Anion Gap 13 mmol/L (10-20); BUN (Urea Nitrogen) 33 mg/dL (9.8-20.1); Calc. Creatinine Clearance 18 mL/min (70-130); Calcium 8.9 mg/dL (7.8-10.44); Carbon Dioxide 21 mmol/L (23-31); Chloride 104 mmol/L (98-107); Estimated GFR 21; Glucose 120 mg/dL (83-110); Potassium 3.9 mmol/L (3.5-5.1); Sodium 134 mmol/L (136-145)
[2023-08-18 07:48] LABS: Anisocytosis SLIGHT = 6-15 cells HPF (0-5); Band 29 % (5-11); CellaVision Operator ID LAB.GE; Eosinophils 1 % (0-10); Large Platelets 14.4 % (0-5); Lymphocytes 13 % (21-51); Monocytes 1 % (0-10); Myelocyte 1 % (0-0); Neutrophil 55 % (42-75); Platelet Adequacy Comment Platelets Decreased; Polychromasia SLIGHT = 2-3 cells HPF (0-2); Total Cell Count 90; Toxic Granulation SLIGHT; Vacuoles SLIGHT
[2023-08-18] MEDS: Cyanocobalamin (Vitamin B-12) 1,000 MCG TAB PO SCH (08:35)
[2023-08-18] MEDS: Sodium Bicarbonate Tab 325 MG TAB PO SCH (08:35)
[2023-08-18] MEDS: Calcitriol 0.25 MCG CAP PO SCH (08:36)
[2023-08-18] MEDS: Magnesium Oxide 400 MG TAB PO SCH (08:36)
[2023-08-18] MEDS: Ferrous Gluconate 324 MG TAB PO SCH (08:36)
[2023-08-18] MEDS: Saccharomyces boulardii 250 MG CAP PO SCH (08:36)
[2023-08-18] MEDS: Propranolol 10 MG TAB PO SCH (08:36)
[2023-08-18 11:34] VITALS: TEMP 97.3
== END 2023-08-18 15:44 | disposition home health service (06) | DRG 872 ==
LOC: ERS 14:26 → ERHOLD 19:20 → IMCU/EMU 08-12 07:23
PROVIDERS: ADMIT Internal Medicine; ATTEND Family Medicine
PROC: 30233N1 Transfusion of Nonautologous Red Blood Cells into Peripheral Vein, Percutaneous Approach (ICD-10-PCS; principal; 2023-08-11)
PROC: 3E03329 Introduction of Other Anti-infective into Peripheral Vein, Percutaneous Approach (ICD-10-PCS; 2023-08-11)
DX: A41.9 Sepsis, unspecified organism (principal); S22.49XA Multiple fractures of ribs, unspecified side, initial encounter for closed fracture; I12.0 Hypertensive chronic kidney disease with stage 5 chronic kidney disease or end stage renal disease; N39.0 Urinary tract infection, site not specified; N18.5 Chronic kidney disease, stage 5; N17.9 Acute kidney failure, unspecified; N82.8 Other female genital tract fistulae; E46 Unspecified protein-calorie malnutrition; E87.20 Acidosis, unspecified; N85.8 Other specified noninflammatory disorders of uterus; K21.9 Gastro-esophageal reflux disease without esophagitis; N28.1 Cyst of kidney, acquired; D17.5 Benign lipomatous neoplasm of intra-abdominal organs; R53.81 Other malaise; R65.20 Severe sepsis without septic shock; S09.90XA Unspecified injury of head, initial encounter; I95.9 Hypotension, unspecified; D63.1 Anemia in chronic kidney disease; E11.22 Type 2 diabetes mellitus with diabetic chronic kidney disease; E87.6 Hypokalemia; E11.65 Type 2 diabetes mellitus with hyperglycemia; W18.30XA Fall on same level, unspecified, initial encounter; E87.5 Hyperkalemia; D69.6 Thrombocytopenia, unspecified; R19.09 Other intra-abdominal and pelvic swelling, mass and lump; D46.9 Myelodysplastic syndrome, unspecified; Z79.2 Long term (current) use of antibiotics; Z79.899 Other long term (current) drug therapy; Z90.710 Acquired absence of both cervix and uterus; Z87.891 Personal history of nicotine dependence; Z82.49 Family history of ischemic heart disease and other diseases of the circulatory system; Z68.22 Body mass index [BMI] 22.0-22.9, adult; E78.00 Pure hypercholesterolemia, unspecified
CPT/HCPCS: 36415; 36416; 36430; 51701; 70450; 70486; 71045; 71250; 72194; 74177; 80048; 80053; 80202; 81001; 82010; 82805; 83036; 83605; 83735; 83970; 84100; 84484; 85014; 85018; 85025; 85049; 86140; 86706; 86850; 86900; 86901; 87040; 87086; 87340; 93005; 93010; 96361; 96365; 96366; 96367; 96376; C9113; J0692; J0696; J1815; J3370-JW; J3490; J7050; J7070; P9016; Q4081; Q9967

== ENCOUNTER 2024-02-24 13:28 | Inpatient (IN) | payer MEDICARE ==
[2024-02-24 14:39] LABS: Globulin 3.8 g/dL (2.4-3.5)
[2024-02-24 14:43] LABS: ALT (SGPT) 8 U/L (8-55); AST (SGOT) 6 U/L (5-34); Alkaline Phosphatase 149 U/L (40-110); Anion Gap 17 mmol/L (10-20); BUN (Urea Nitrogen) 61 mg/dL (9.8-20.1); Bilirubin, Total 0.4 mg/dL (0.2-1.2); Calc. Creatinine Clearance 0 mL/min (70-130); Calcium 9.2 mg/dL (7.8-10.44); Carbon Dioxide 18 mmol/L (23-31); Chloride 102 mmol/L (98-107); Estimated GFR 9; Glucose 205 mg/dL (83-110); Lipase 8 U/L (8-78); Magnesium 2.2 mg/dL (1.6-2.6); Potassium 3.9 mmol/L (3.5-5.1); Protein, Total 5.8 g/dL (5.8-8.1); Sodium 133 mmol/L (136-145)
[2024-02-24 14:47] LABS: #Basophils 0.23 10x3/uL (0.0-0.2); %Basophils 0.6 % (0.0-1.0); %Eosinophils 0.2 % (0.0-10.0); %Lymphocytes 5.5 % (21.0-51.0); %Monocytes 5.5 % (0.0-10.0); %Neutrophils 82.2 % (42.0-75.0); Hemoglobin 9.8 g/dL (12.0-16.0); Mean Corpuscular HGB CONC 31.6 g/dL (32.0-36.0); Mean Corpuscular Hemoglobin 28.8 pg (27.0-31.0); Mean Corpuscular Volume 91.2 fL (78.0-98.0); Mean Platelet Volume 13.8 fL (7.4-10.4); Platelet Count 160 10x3/uL (130-400); RBC Distribution Width 19.3 % (11.5-14.5)
[2024-02-24] MEDS ORDERED: metroNIDAZOLE 500 MG (100 mL) BAG ONE (17:32)
[2024-02-24 18:11] LABS: Lactic Acid 2.1 mmol/L (0.5-2.2)
[2024-02-24] MEDS ORDERED: Ondansetron PF 4 MG/2 ML Vial IVP PRN (19:15)
[2024-02-24] MEDS ORDERED: Ondansetron ODT 4 MG TAB SL PRN (19:15)
[2024-02-24] MEDS ORDERED: Dextrose 50% Abboject 50 ML SYRINGE SLOW IVP PRN (20:56)
[2024-02-24] MEDS ORDERED: Insulin Regular 300 UNITS/3 ML VIAL SC PRN (20:56)
[2024-02-24] MEDS ORDERED: Dextrose 5% in Water 1,000 ML IV PRN (20:56)
[2024-02-24] MEDS ORDERED: Glucagon 1 MG/ML KIT IM PRN (20:56)
[2024-02-24] MEDS: Vancomycin HCl 125 MG Capsule PO SCH ×3 (21:26→23:56)
[2024-02-24 21:38] VITALS: BMI 23.8
[2024-02-24] MEDS: Melatonin 3 MG TAB PO SCH (21:46)
[2024-02-24] MEDS: Sodium Chloride 0.9% 1,000 ML IV SCH (21:46)
[2024-02-24] MEDS: Famotidine/PF 20 mg/2ml Vial SLOW IVP SCH (21:46)
[2024-02-24] MEDS: metroNIDAZOLE 500 MG in Premix 1 BAG IVPB SCH (23:56)
[2024-02-24 23:58] LABS: Campy jejuni + coli by PCR Negative (Negative); STEC Shiga Toxin 1+2 Negative (Negative); Salmonella spp. by PCR Negative (Negative); Shigella spp + EIEC by PCR Negative (Negative)
[2024-02-25] MEDS: Acetaminophen 325 MG TAB PO PRN (00:08)
[2024-02-25 05:14] LABS: Hematocrit 23.6 % (36.0-47.0); Hemoglobin 7.1 g/dL (12.0-16.0); Mean Corpuscular HGB CONC 30.1 g/dL (32.0-36.0); Mean Corpuscular Hemoglobin 28.2 pg (27.0-31.0); Mean Corpuscular Volume 93.7 fL (78.0-98.0); Mean Platelet Volume 13.5 fL (7.4-10.4); Platelet Count 128 10x3/uL (130-400); RBC Distribution Width 18.9 % (11.5-14.5); Red Blood Cell (RBC) Count 2.52 mill/uL (4.20-5.40)
[2024-02-25 05:29] LABS: Anion Gap 14 mmol/L (10-20); BUN (Urea Nitrogen) 55 mg/dL (9.8-20.1); Calc. Creatinine Clearance 10 mL/min (70-130); Calcium 8.1 mg/dL (7.8-10.44); Carbon Dioxide 15 mmol/L (23-31); Chloride 110 mmol/L (98-107); Estimated GFR 10; Glucose 87 mg/dL (83-110); Potassium 3.3 mmol/L (3.5-5.1); Sodium 136 mmol/L (136-145)
[2024-02-25 05:43] LABS: Anisocytosis SLIGHT = 6-15 cells HPF (0-5); Band 6 % (5-11); Lymphocytes 3 % (21-51); Monocytes 2 % (0-10); Myelocyte 1 % (0-0); Neutrophil 88 % (42-75); Platelet Adequacy Comment Platelets Normal; Polychromasia SLIGHT = 2-3 cells HPF (0-2); Smudge Cells 18.4 %
[2024-02-25] MEDS: Potassium Chloride 20 MEQ TAB PO SCH (09:12)
[2024-02-25] MEDS: Cyanocobalamin (Vitamin B-12) 1,000 MCG TAB PO SCH (09:12)
[2024-02-25] MEDS: Aspirin 81 mg Enteric Coated Tablet PO SCH (09:12)
[2024-02-25] MEDS: Heparin 5,000 UNITS/ML VIAL SC SCH (10:00)
[2024-02-25 12:17] LABS: Hematocrit 29.3 % (36.0-47.0); Hemoglobin 8.4 g/dL (12.0-16.0)
[2024-02-25] MEDS: Potassium Bicarbonate/Cit Ac 20 MEQ TAB PO SCH (13:02)
[2024-02-25] MEDS: Atorvastatin Calcium 10 MG TAB PO SCH (21:06)
[2024-02-25] MEDS: Famotidine/PF 20 mg/2ml Vial SLOW IVP SCH (21:06)
[2024-02-25] MEDS: Insulin Glargine 30 UNITS/0.3 ML VIAL SC SCH (21:06)
[2024-02-25] MEDS: Melatonin 3 MG TAB PO SCH (23:23)
[2024-02-26] MEDS: Ondansetron PF 4 MG/2 ML Vial IVP SCH
[2024-02-26 06:17] LABS: Hematocrit 24.7 % (36.0-47.0); Hemoglobin 7.4 g/dL (12.0-16.0); Mean Corpuscular Hemoglobin 28.7 pg (27.0-31.0); Mean Corpuscular Volume 95.7 fL (78.0-98.0); Mean Platelet Volume 13.7 fL (7.4-10.4); Platelet Count 141 10x3/uL (130-400); RBC Distribution Width 19.2 % (11.5-14.5); Red Blood Cell (RBC) Count 2.58 mill/uL (4.20-5.40)
[2024-02-26 06:39] LABS: Anion Gap 11 mmol/L (10-20); BUN (Urea Nitrogen) 48 mg/dL (9.8-20.1); Calc. Creatinine Clearance 11 mL/min (70-130); Calcium 8.1 mg/dL (7.8-10.44); Carbon Dioxide 13 mmol/L (23-31); Chloride 114 mmol/L (98-107); Estimated GFR 11; Glucose 107 mg/dL (83-110); Potassium 4.1 mmol/L (3.5-5.1); Sodium 134 mmol/L (136-145)
[2024-02-26] MEDS: Enoxaparin 30 MG (0.3 mL) SYRINGE SC SCH (07:27)
[2024-02-26] MEDS: Lactated Ringer's 1,000 ML IV SCH (09:34)
[2024-02-27 06:29] LABS: Hematocrit 27.5 % (36.0-47.0); Hemoglobin 8.4 g/dL (12.0-16.0); Mean Corpuscular HGB CONC 30.5 g/dL (32.0-36.0); Mean Corpuscular Hemoglobin 29.5 pg (27.0-31.0); Mean Corpuscular Volume 96.5 fL (78.0-98.0); Mean Platelet Volume 13.3 fL (7.4-10.4); Platelet Count 154 10x3/uL (130-400); RBC Distribution Width 19.2 % (11.5-14.5); Red Blood Cell (RBC) Count 2.85 mill/uL (4.20-5.40)
[2024-02-27 06:43] LABS: Anion Gap 12 mmol/L (10-20); BUN (Urea Nitrogen) 45 mg/dL (9.8-20.1); Calc. Creatinine Clearance 11 mL/min (70-130); Calcium 8.1 mg/dL (7.8-10.44); Carbon Dioxide 14 mmol/L (23-31); Chloride 113 mmol/L (98-107); Estimated GFR 11; Glucose 123 mg/dL (83-110); Potassium 3.8 mmol/L (3.5-5.1); Sodium 135 mmol/L (136-145)
[2024-02-28 08:05] LABS: Anion Gap 12 mmol/L (10-20); BUN (Urea Nitrogen) 44 mg/dL (9.8-20.1); Calc. Creatinine Clearance 11 mL/min (70-130); Calcium 7.9 mg/dL (7.8-10.44); Carbon Dioxide 13 mmol/L (23-31); Chloride 115 mmol/L (98-107); Estimated GFR 11; Glucose 150 mg/dL (83-110); Potassium 4.2 mmol/L (3.5-5.1); Sodium 136 mmol/L (136-145)
[2024-02-28 10:22] LABS: Hematocrit 29.6 % (36.0-47.0); Hemoglobin 8.8 g/dL (12.0-16.0); Mean Corpuscular HGB CONC 29.7 g/dL (32.0-36.0); Mean Corpuscular Hemoglobin 28.9 pg (27.0-31.0); Mean Platelet Volume 13.6 fL (7.4-10.4); Platelet Count 189 10x3/uL (130-400); RBC Distribution Width 19.5 % (11.5-14.5); Red Blood Cell (RBC) Count 3.05 mill/uL (4.20-5.40)
[2024-02-28 11:23] LABS: Band 12 % (5-11); Burr Cells SLIGHT = 2-5 cells HPF (0-1); Eosinophils 1 % (0-10); Large Platelets 2.9 % (0-5); Lymphocytes 14 % (21-51); Monocytes 8 % (0-10); Neutrophil 63 % (42-75); Platelet Adequacy Comment Platelets Normal; Poikilocytosis SLIGHT = 6-15 cells HPF (0-5); Polychromasia SLIGHT = 2-3 cells HPF (0-2); Reactive Lymphocytes 1 % (0-10); Schistocytes SLIGHT = 2-5 cells HPF (0-1)
[2024-02-28] MEDS: Insulin Regular 300 UNITS/3 ML VIAL SC PRN (17:45)
[2024-02-28] MEDS ORDERED: Ondansetron PF 4 MG/2 ML Vial IVP PRN (23:54)
[2024-02-29] MEDS: Ondansetron ODT 4 MG TAB PO PRN (00:32)
[2024-03-01 07:37] LABS: Hematocrit 26.8 % (36.0-47.0); Mean Corpuscular HGB CONC 29.9 g/dL (32.0-36.0); Mean Corpuscular Volume 97.1 fL (78.0-98.0); Mean Platelet Volume 13.2 fL (7.4-10.4); Platelet Count 178 10x3/uL (130-400); RBC Distribution Width 19.5 % (11.5-14.5); Red Blood Cell (RBC) Count 2.76 mill/uL (4.20-5.40)
[2024-03-01 07:44] LABS: Anion Gap 12 mmol/L (10-20); BUN (Urea Nitrogen) 44 mg/dL (9.8-20.1); Calc. Creatinine Clearance 10 mL/min (70-130); Calcium 7.9 mg/dL (7.8-10.44); Carbon Dioxide 14 mmol/L (23-31); Chloride 115 mmol/L (98-107); Estimated GFR 10; Glucose 68 mg/dL (83-110); Potassium 3.7 mmol/L (3.5-5.1); Sodium 137 mmol/L (136-145)
[2024-03-01 08:12] LABS: Band 7 % (5-11); Burr Cells SLIGHT = 2-5 cells HPF (0-1); Large Platelets 4.8 % (0-5); Lymphocytes 9 % (21-51); Monocytes 2 % (0-10); Neutrophil 82 % (42-75); Nucleated RBC (Manual Ct) 1 % (0); Ovalocytes SLIGHT = 2-5 cells HPF (0-1); Platelet Adequacy Comment Platelets Normal; Polychromasia SLIGHT = 2-3 cells HPF (0-2)
[2024-03-02 14:14] VITALS: BMI 23.8
[2024-03-03 08:05] VITALS: BP 116/65; TEMP 98.3
== END 2024-03-03 11:54 | disposition home health service (06) | DRG 872 ==
LOC: ERS 13:28 → T4-A 17:29
PROVIDERS: ADMIT Hospitalist; ATTEND Internal Medicine
DX: A41.9 Sepsis, unspecified organism (principal); A04.72 Enterocolitis due to Clostridium difficile, not specified as recurrent; N17.9 Acute kidney failure, unspecified; E87.20 Acidosis, unspecified; N18.5 Chronic kidney disease, stage 5; I12.0 Hypertensive chronic kidney disease with stage 5 chronic kidney disease or end stage renal disease; Z66 Do not resuscitate; E78.5 Hyperlipidemia, unspecified; E87.6 Hypokalemia; E11.22 Type 2 diabetes mellitus with diabetic chronic kidney disease; Z79.899 Other long term (current) drug therapy; D63.1 Anemia in chronic kidney disease
CPT/HCPCS: 36415; 36416; 74019; 74176; 80048; 80053; 83605; 83690; 83735; 85025; 85027; 87040; 87324; 87449; 87505; 96361; 96365; J1644; J1815; J2405; J7050; J7120; Q0162; S0028

== ENCOUNTER 2024-03-15 09:39 | Inpatient (IN) | payer MEDICARE ==
[2024-03-15] MEDS ORDERED: Ondansetron ODT 4 MG TAB PO PRN (13:37)
[2024-03-15] MEDS ORDERED: Ondansetron PF 4 MG/2 ML Vial IVP PRN (13:37)
[2024-03-15] MEDS: Sodium Chloride 0.9% 1,000 ML IV SCH (14:42)
[2024-03-15] MEDS ORDERED: Glucagon 1 MG/ML KIT IM PRN (15:11)
[2024-03-15] MEDS ORDERED: Dextrose 5% in Water 1,000 ML IV PRN (15:11)
[2024-03-15 15:43] LABS: #Basophils 0.07 10x3/uL (0.0-0.2); %Basophils 0.4 % (0.0-1.0); %Eosinophils 0.2 % (0.0-10.0); %Lymphocytes 11.8 % (21.0-51.0); %Monocytes 5.4 % (0.0-10.0); %Neutrophils 77.4 % (42.0-75.0); Hematocrit 32.2 % (36.0-47.0); Hemoglobin 9.8 g/dL (12.0-16.0); Mean Corpuscular HGB CONC 30.4 g/dL (32.0-36.0); Mean Corpuscular Hemoglobin 30.1 pg (27.0-31.0); Mean Corpuscular Volume 98.8 fL (78.0-98.0); Mean Platelet Volume 12.9 fL (7.4-10.4); Platelet Count 228 10x3/uL (130-400); RBC Distribution Width 19.6 % (11.5-14.5); Red Blood Cell (RBC) Count 3.26 mill/uL (4.20-5.40)
[2024-03-15 15:57] LABS: Anion Gap 12 mmol/L (10-20); BUN (Urea Nitrogen) 47 mg/dL (9.8-20.1); Calc. Creatinine Clearance 15 mL/min (70-130); Calcium 7.9 mg/dL (7.8-10.44); Carbon Dioxide 12 mmol/L (23-31); Chloride 123 mmol/L (98-107); Estimated GFR 16; Glucose 146 mg/dL (83-110); Potassium 3.9 mmol/L (3.5-5.1); Sodium 143 mmol/L (136-145)
[2024-03-15] MEDS: Vancomycin HCl 125 MG Capsule PO SCH ×2 (17:40→22:27)
[2024-03-15] MEDS: Sodium Bicarbonate 150 MEQ in Dextrose 5% in Water 1,000 ML IV SCH (17:40)
[2024-03-15] MEDS: EPOETIN ALFA-EPBX 10,000 UNITS/ML VIAL SC SCH (18:15)
[2024-03-15] MEDS: Insulin Regular 300 UNITS/3 ML VIAL SC PRN (22:28)
[2024-03-15] MEDS: Insulin Glargine 30 UNITS/0.3 ML VIAL SC SCH (22:28)
[2024-03-15] MEDS: Pantoprazole 40 MG VIAL IVP SCH (22:28)
[2024-03-16 00:19] LABS: Hematocrit 28.1 % (36.0-47.0); Hemoglobin 8.9 g/dL (12.0-16.0)
[2024-03-16 06:02] LABS: Hematocrit 27.5 % (36.0-47.0); Hemoglobin 8.5 g/dL (12.0-16.0)
[2024-03-16 06:18] LABS: Hematocrit 27.6 % (36.0-47.0); Hemoglobin 8.6 g/dL (12.0-16.0); Mean Corpuscular HGB CONC 31.2 g/dL (32.0-36.0); Mean Corpuscular Hemoglobin 28.9 pg (27.0-31.0); Mean Corpuscular Volume 92.6 fL (78.0-98.0); Mean Platelet Volume 12.8 fL (7.4-10.4); Platelet Count 234 10x3/uL (130-400); RBC Distribution Width 19.4 % (11.5-14.5); Red Blood Cell (RBC) Count 2.98 mill/uL (4.20-5.40)
[2024-03-16 06:41] LABS: Anisocytosis SLIGHT = 6-15 cells HPF (0-5); Burr Cells SLIGHT = 2-5 cells HPF (0-1); Hypochromia SLIGHT = 6-15 cells HPF (0-5); Lymphocytes 8 % (21-51); Monocytes 9 % (0-10); Myelocyte 2 % (0-0); Neutrophil 81 % (42-75); Nucleated RBC (Manual Ct) 1 % (0); Platelet Adequacy Comment Platelets Normal; Poikilocytosis SLIGHT = 6-15 cells HPF (0-5); Polychromasia SLIGHT = 2-3 cells HPF (0-2); Smudge Cells 16.8 %
[2024-03-16 07:09] LABS: Anion Gap 10 mmol/L (10-20); BUN (Urea Nitrogen) 39 mg/dL (9.8-20.1); Calc. Creatinine Clearance 16 mL/min (70-130); Calcium 7.4 mg/dL (7.8-10.44); Carbon Dioxide 14 mmol/L (23-31); Chloride 122 mmol/L (98-107); Estimated GFR 18; Glucose 88 mg/dL (83-110); Potassium 3.1 mmol/L (3.5-5.1); Sodium 143 mmol/L (136-145)
[2024-03-16] MEDS: Saccharomyces boulardii 250 MG CAP PO SCH (08:58)
[2024-03-16] MEDS: Allopurinol 100 MG TAB PO SCH (08:58)
[2024-03-16] MEDS: Calcitriol 0.25 MCG CAP PO SCH (08:58)
[2024-03-16] MEDS: Cyanocobalamin (Vitamin B-12) 1,000 MCG TAB PO SCH (08:58)
[2024-03-16] MEDS: Potassium Chloride 20 MEQ TAB PO SCH (09:08)
[2024-03-16 09:12] LABS: Hemoglobin 10.1 g/dL (12.0-16.0)
[2024-03-16] MEDS: Insulin Regular 300 UNITS/3 ML VIAL SC PRN (12:10)
[2024-03-16 15:34] LABS: Hematocrit 29.1 % (36.0-47.0); Hemoglobin 8.9 g/dL (12.0-16.0)
[2024-03-16] MEDS: Propranolol 10 MG TAB PO SCH (20:50)
[2024-03-16] MEDS: Atorvastatin Calcium 10 MG TAB PO SCH (20:50)
[2024-03-17 06:33] LABS: #Basophils 0.06 10x3/uL (0.0-0.2); %Basophils 0.5 % (0.0-1.0); %Eosinophils 0.6 % (0.0-10.0); %Lymphocytes 18.5 % (21.0-51.0); %Monocytes 8.8 % (0.0-10.0); %Neutrophils 67.2 % (42.0-75.0); Hematocrit 26.2 % (36.0-47.0); Hemoglobin 8.4 g/dL (12.0-16.0); Mean Corpuscular HGB CONC 32.1 g/dL (32.0-36.0); Mean Corpuscular Hemoglobin 29.3 pg (27.0-31.0); Mean Corpuscular Volume 91.3 fL (78.0-98.0); Mean Platelet Volume 12.4 fL (7.4-10.4); Platelet Count 237 10x3/uL (130-400); RBC Distribution Width 19.1 % (11.5-14.5); Red Blood Cell (RBC) Count 2.87 mill/uL (4.20-5.40)
[2024-03-17 06:50] LABS: Anion Gap 10 mmol/L (10-20); BUN (Urea Nitrogen) 31 mg/dL (9.8-20.1); Calc. Creatinine Clearance 19 mL/min (70-130); Carbon Dioxide 20 mmol/L (23-31); Chloride 117 mmol/L (98-107); Estimated GFR 21; Glucose 54 mg/dL (83-110); Potassium 3.3 mmol/L (3.5-5.1); Sodium 144 mmol/L (136-145)
[2024-03-17] MEDS: Pantoprazole DR 40 MG TAB PO SCH (08:25)
[2024-03-17] MEDS: Vancomycin HCl 125 MG Capsule PO SCH (08:25)
[2024-03-17] MEDS: Sodium Bicarbonate 150 MEQ in Dextrose 5% in Water 1,000 ML IV SCH (10:18)
[2024-03-18 06:38] LABS: #Basophils 0.03 10x3/uL (0.0-0.2); %Basophils 0.3 % (0.0-1.0); %Eosinophils 0.4 % (0.0-10.0); %Lymphocytes 19.7 % (21.0-51.0); %Monocytes 7.6 % (0.0-10.0); %Neutrophils 68.3 % (42.0-75.0); Hematocrit 25.7 % (36.0-47.0); Mean Corpuscular HGB CONC 31.1 g/dL (32.0-36.0); Mean Corpuscular Volume 93.1 fL (78.0-98.0); Mean Platelet Volume 12.9 fL (7.4-10.4); Platelet Count 208 10x3/uL (130-400); RBC Distribution Width 19.3 % (11.5-14.5); Red Blood Cell (RBC) Count 2.76 mill/uL (4.20-5.40)
[2024-03-18 06:56] LABS: Anion Gap 12 mmol/L (10-20); BUN (Urea Nitrogen) 28 mg/dL (9.8-20.1); Calc. Creatinine Clearance 19 mL/min (70-130); Calcium 7.3 mg/dL (7.8-10.44); Carbon Dioxide 24 mmol/L (23-31); Chloride 111 mmol/L (98-107); Estimated GFR 21; Glucose 134 mg/dL (83-110); Sodium 143 mmol/L (136-145)
[2024-03-18] MEDS: Sodium Bicarbonate Tab 325 MG TAB PO SCH (10:22)
[2024-03-19 06:54] LABS: #Basophils Less than 0.03 10x3/uL (0.0-0.2); %Basophils 0.2 % (0.0-1.0); %Eosinophils 0.3 % (0.0-10.0); %Lymphocytes 20.7 % (21.0-51.0); %Monocytes 7.5 % (0.0-10.0); %Neutrophils 68.2 % (42.0-75.0); Hemoglobin 8.1 g/dL (12.0-16.0); Mean Corpuscular HGB CONC 31.2 g/dL (32.0-36.0); Mean Corpuscular Hemoglobin 29.9 pg (27.0-31.0); Mean Corpuscular Volume 95.9 fL (78.0-98.0); Mean Platelet Volume 12.7 fL (7.4-10.4); Platelet Count 205 10x3/uL (130-400); RBC Distribution Width 18.9 % (11.5-14.5); Red Blood Cell (RBC) Count 2.71 mill/uL (4.20-5.40)
[2024-03-19 07:08] LABS: Anion Gap 12 mmol/L (10-20); BUN (Urea Nitrogen) 27 mg/dL (9.8-20.1); Calc. Creatinine Clearance 21 mL/min (70-130); Calcium 7.7 mg/dL (7.8-10.44); Carbon Dioxide 24 mmol/L (23-31); Chloride 110 mmol/L (98-107); Estimated GFR 24; Glucose 91 mg/dL (83-110); Potassium 3.5 mmol/L (3.5-5.1); Sodium 142 mmol/L (136-145)
[2024-03-19] MEDS: Potassium Chloride 20 MEQ TAB PO SCH (11:42)
[2024-03-20 08:01] LABS: #Basophils Less than 0.03 10x3/uL (0.0-0.2); %Basophils 0.2 % (0.0-1.0); %Eosinophils 0.3 % (0.0-10.0); %Lymphocytes 15.8 % (21.0-51.0); %Neutrophils 74.7 % (42.0-75.0); Hematocrit 28.4 % (36.0-47.0); Hemoglobin 8.9 g/dL (12.0-16.0); Mean Corpuscular HGB CONC 31.3 g/dL (32.0-36.0); Mean Corpuscular Hemoglobin 29.9 pg (27.0-31.0); Mean Corpuscular Volume 95.3 fL (78.0-98.0); Mean Platelet Volume 13.1 fL (7.4-10.4); Platelet Count 231 10x3/uL (130-400); RBC Distribution Width 18.9 % (11.5-14.5); Red Blood Cell (RBC) Count 2.98 mill/uL (4.20-5.40)
[2024-03-20 08:14] LABS: Anion Gap 14 mmol/L (10-20); BUN (Urea Nitrogen) 26 mg/dL (9.8-20.1); Calc. Creatinine Clearance 19 mL/min (70-130); Carbon Dioxide 22 mmol/L (23-31); Chloride 109 mmol/L (98-107); Estimated GFR 21; Glucose 87 mg/dL (83-110); Potassium 4.5 mmol/L (3.5-5.1); Sodium 140 mmol/L (136-145)
[2024-03-21 10:41] LABS: Anion Gap 12 mmol/L (10-20); BUN (Urea Nitrogen) 27 mg/dL (9.8-20.1); Calc. Creatinine Clearance 20 mL/min (70-130); Calcium 7.9 mg/dL (7.8-10.44); Carbon Dioxide 24 mmol/L (23-31); Chloride 105 mmol/L (98-107); Estimated GFR 23; Glucose 154 mg/dL (83-110); Sodium 137 mmol/L (136-145)
[2024-03-21] MEDS: FOSPHENYTOIN SODIUM IVPB SCH (18:32)
[2024-03-21] MEDS: Ondansetron PF 4 MG/2 ML Vial IVP SCH (18:32)
[2024-03-21] MEDS: SODIUM CHLORIDE 0.9% IVPB SCH (18:32)
[2024-03-21] MEDS ORDERED: hydrALAZINE 20 MG/ML VIAL SLOW IVP PRN (18:56)
[2024-03-22 04:26] LABS: #Basophils 0.05 10x3/uL (0.0-0.2); #Eosinphils Less than 0.03 10x3/uL (0.0-0.7); %Basophils 0.4 % (0.0-1.0); %Eosinophils 0.2 % (0.0-10.0); %Lymphocytes 21.3 % (21.0-51.0); %Monocytes 6.8 % (0.0-10.0); %Neutrophils 69.2 % (42.0-75.0); Hematocrit 28.6 % (36.0-47.0); Hemoglobin 8.6 g/dL (12.0-16.0); Mean Corpuscular HGB CONC 30.1 g/dL (32.0-36.0); Mean Corpuscular Hemoglobin 28.8 pg (27.0-31.0); Mean Corpuscular Volume 95.7 fL (78.0-98.0); Mean Platelet Volume 12.7 fL (7.4-10.4); Platelet Count 232 10x3/uL (130-400); RBC Distribution Width 18.8 % (11.5-14.5); Red Blood Cell (RBC) Count 2.99 mill/uL (4.20-5.40)
[2024-03-22 04:36] LABS: Anion Gap 14 mmol/L (10-20); BUN (Urea Nitrogen) 25 mg/dL (9.8-20.1); Calc. Creatinine Clearance 19 mL/min (70-130); Calcium 8.1 mg/dL (7.8-10.44); Carbon Dioxide 24 mmol/L (23-31); Chloride 106 mmol/L (98-107); Dilantin 13.2 ug/mL (10.0-20.0); Estimated GFR 21; Glucose 174 mg/dL (83-110); Potassium 3.9 mmol/L (3.5-5.1); Sodium 140 mmol/L (136-145)
[2024-03-22] MEDS: Dextrose 5 %-0.45 % NaCl 1,000 ML IV SCH (09:13)
[2024-03-22] MEDS: metroNIDAZOLE 500 MG in Premix 1 BAG IVPB SCH (10:31)
[2024-03-22] MEDS: Pantoprazole 40 MG VIAL IVP SCH (10:32)
[2024-03-22] MEDS: Acetaminophen 650 MG Suppository PR PRN (16:29)
[2024-03-22] MEDS ORDERED: Insulin Regular, Human 100 UNIT/ML 10 ML VIAL SC PRN (17:00)
[2024-03-22] MEDS: Insulin Regular, Human 100 UNIT/ML 10 ML VIAL SC PRN (17:45)
[2024-03-23] MEDS: Sodium Chloride 0.9% 500 ML IV SCH (02:45)
[2024-03-23] MEDS: Lorazepam 2 MG/ML VIAL SLOW IVP PRN (03:04)
[2024-03-23 03:23] LABS: Actual Bicarbonate (HCO3a) 22.8 mEq/L (22-28); Base Excess (BEa) 0.4 mEq/L (-2.0 to +3.0); CO2 Tension 28.6 mmHg (35.0-45.0); Calcium, Ionized (arterial) 1.08 mmol/L (1.12-1.30); Carboxyhemoglobin (COHb) 0.7 gm% (0.0-3.0); Hematocrit-ABG 26 % (36.0-47.0); Hemoglobin (Hb) 8.8 g/dL (12.0-16.0); O2 Tension (PaO2), arterial 72.9 mmHg (> 70.0); Potassium - ABG Lab 3.13 mmol/L (3.70-5.30)
[2024-03-23 03:24] LABS: Puncture Site LRA
[2024-03-23] MEDS: Etomidate 40 MG (20 mL) VIAL IVP SCH (03:29)
[2024-03-23] MEDS ORDERED: Etomidate 40 MG (20 mL) VIAL ONE (03:43)
[2024-03-23] MEDS ORDERED: Ventilator Sedation Protocol 1 EACH FS SCH (04:00)
[2024-03-23] MEDS ORDERED: Propofol BOLUS 1,000 MG/100 ML VIAL IV PRN (04:15)
[2024-03-23] MEDS ORDERED: Fentanyl BOLUS 250 ML IVPB PRN (04:15)
[2024-03-23] MEDS ORDERED: DISCONTINUE PREVIOUS NARCOTIC PAIN MEDICATIONS AND BENZODIAZEPINES FS SCH (04:15)
[2024-03-23] MEDS ORDERED: Morphine 2 MG/ML VIAL SLOW IVP PRN (04:15)
[2024-03-23] MEDS ORDERED: Fentanyl CADD 100 ML IV SCH (04:15)
[2024-03-23] MEDS: Lorazepam 2 MG/ML VIAL ONE (04:44)
[2024-03-23] MEDS: NOREPINEPHRINE 8 MG/250 ML-D5W 250 ML ONE (04:44)
[2024-03-23] MEDS: Propofol 1,000 MG/100 ML VIAL IV ONE (04:44)
[2024-03-23 04:46] LABS: Base Excess (BEa) 0.3 mEq/L (-2.0 to +3.0); CO2 Tension 25.4 mmHg (35.0-45.0); Calcium, Ionized (arterial) 1.11 mmol/L (1.12-1.30); Carboxyhemoglobin (COHb) 0.5 gm% (0.0-3.0); Hematocrit-ABG 26 % (36.0-47.0); Hemoglobin (Hb) 8.7 g/dL (12.0-16.0); O2 Tension (PaO2), arterial 304.4 mmHg (> 70.0); Potassium - ABG Lab 3.34 mmol/L (3.70-5.30); pH, Arterial 7.556 (7.35-7.45)
[2024-03-23 06:29] LABS: #Basophils 0.06 10x3/uL (0.0-0.2); %Basophils 0.5 % (0.0-1.0); %Eosinophils 0.5 % (0.0-10.0); %Lymphocytes 20.3 % (21.0-51.0); %Monocytes 9.8 % (0.0-10.0); %Neutrophils 67.5 % (42.0-75.0); Hematocrit 30.1 % (36.0-47.0); Hemoglobin 9.2 g/dL (12.0-16.0); Mean Corpuscular HGB CONC 30.6 g/dL (32.0-36.0); Mean Platelet Volume 12.8 fL (7.4-10.4); Platelet Count 258 10x3/uL (130-400); RBC Distribution Width 18.6 % (11.5-14.5); Red Blood Cell (RBC) Count 3.07 mill/uL (4.20-5.40)
[2024-03-23 06:37] LABS: Anion Gap 15 mmol/L (10-20); BUN (Urea Nitrogen) 26 mg/dL (9.8-20.1); Calc. Creatinine Clearance 18 mL/min (70-130); Calcium 7.8 mg/dL (7.8-10.44); Carbon Dioxide 20 mmol/L (23-31); Chloride 105 mmol/L (98-107); Estimated GFR 20; Glucose 220 mg/dL (83-110); Potassium 3.1 mmol/L (3.5-5.1); Sodium 137 mmol/L (136-145)
[2024-03-23 07:02] LABS: Dilantin 13.8 ug/mL (10.0-20.0)
[2024-03-23] MEDS: Potassium Chloride 20 MEQ in Premix 1 BAG IVPB SCH (08:57)
[2024-03-23] MEDS: Insulin NPH Human Isophane 100 UNITS/ML (10 ML VIAL) SC SCH (08:58)
[2024-03-23] MEDS: Propofol 1,000 MG/100 ML VIAL IV PRN (11:29)
[2024-03-23] MEDS ORDERED: Bupivacaine PF 0.5% 30 ML VIAL ONE (11:36)
[2024-03-23] MEDS ORDERED: EPINEPHrine 1 MG/ML VIAL ONE (11:36)
[2024-03-23] MEDS ORDERED: Thrombin 5000 UNITS/5 ML VIAL ONE (11:36)
[2024-03-23] MEDS ORDERED: Rocuronium Bromide 10 MG/ML (10ML VIAL) ONE (11:38)
[2024-03-23] MEDS ORDERED: Midazolam HCl 2 mg/2 ml Vial ONE (11:39)
[2024-03-23] MEDS ORDERED: PROPOFOL 0 ML ONE (11:39)
[2024-03-23] MEDS ORDERED: Vecuronium 10 MG VIAL ONE (12:20)
[2024-03-23] MEDS ORDERED: CEFAZOLIN 1 GM VIAL ONE (12:39)
[2024-03-23] MEDS ORDERED: Dexamethasone 4 mg/ml Vial ONE (13:02)
[2024-03-23] MEDS ORDERED: Ondansetron PF 4 MG/2 ML Vial ONE (13:02)
[2024-03-23] MEDS ORDERED: Ketamine In 0.9 % NaCl 50 MG/5 ML SYRINGE ONE (14:04)
[2024-03-23] MEDS: Sodium Chloride 0.9% 1,000 ML IV SCH (14:45)
[2024-03-23] MEDS: Dextrose 50% Abboject 50 ML SYRINGE SLOW IVP PRN (16:47)
[2024-03-23] MEDS: CEFAZOLIN 2 GM in Sodium Chloride 0.9% 100 ML IVPB SCH (21:11)
[2024-03-24 04:43] LABS: #Basophils Less than 0.03 10x3/uL (0.0-0.2); #Eosinphils Less than 0.03 10x3/uL (0.0-0.7); %Basophils 0.1 % (0.0-1.0); %Eosinophils 0.1 % (0.0-10.0); %Lymphocytes 11.6 % (21.0-51.0); %Monocytes 6.1 % (0.0-10.0); %Neutrophils 81.1 % (42.0-75.0); Hematocrit 26.5 % (36.0-47.0); Hemoglobin 8.1 g/dL (12.0-16.0); Mean Corpuscular HGB CONC 30.6 g/dL (32.0-36.0); Mean Corpuscular Hemoglobin 29.2 pg (27.0-31.0); Mean Corpuscular Volume 95.7 fL (78.0-98.0); Mean Platelet Volume 12.2 fL (7.4-10.4); Platelet Count 246 10x3/uL (130-400); RBC Distribution Width 18.6 % (11.5-14.5); Red Blood Cell (RBC) Count 2.77 mill/uL (4.20-5.40)
[2024-03-24 05:13] LABS: Anion Gap 13 mmol/L (10-20); BUN (Urea Nitrogen) 23 mg/dL (9.8-20.1); Calc. Creatinine Clearance 19 mL/min (70-130); Calcium 7.6 mg/dL (7.8-10.44); Carbon Dioxide 20 mmol/L (23-31); Chloride 109 mmol/L (98-107); Estimated GFR 21; Glucose 166 mg/dL (83-110); Potassium 3.3 mmol/L (3.5-5.1); Sodium 139 mmol/L (136-145)
[2024-03-24 07:37] LABS: Actual Bicarbonate (HCO3a) 21.1 mEq/L (22-28); Base Excess (BEa) -2.2 mEq/L (-2.0 to +3.0); CO2 Tension 30.2 mmHg (35.0-45.0); Calcium, Ionized (arterial) 1.09 mmol/L (1.12-1.30); Carboxyhemoglobin (COHb) 0.7 gm% (0.0-3.0); Hematocrit-ABG 25 % (36.0-47.0); Hemoglobin (Hb) 8.6 g/dL (12.0-16.0); O2 Tension (PaO2), arterial 117.8 mmHg (> 70.0); pH, Arterial 7.462 (7.35-7.45)
[2024-03-24 07:43] LABS: Puncture Site RRA
[2024-03-24] MEDS: NOREPINEPHRINE 8 MG/250 ML-D5W 250 ML IVPB SCH (08:30)
[2024-03-24] MEDS: levETIRAcetam 500 MG (5 mL) VIAL SLOW IVP SCH (09:09)
[2024-03-24] MEDS: Phenytoin 1,000 MG in Sodium Chloride 0.9% 100 ML IVPB SCH (09:09)
[2024-03-24] MEDS ORDERED: Lorazepam 2 MG/ML VIAL SLOW IVP PRN (09:30)
[2024-03-24] MEDS: FOSPHENYTOIN SODIUM IVPB SCH (09:36)
[2024-03-24] MEDS: SODIUM CHLORIDE 0.9% IVPB SCH (09:36)
[2024-03-24] MEDS: Lacosamide 400 MG in Sodium Chloride 0.9% 50 ML IVPB SCH (09:36)
[2024-03-24] MEDS: Sodium Chloride 0.45% 1,000 ML IV SCH (13:17)
[2024-03-24] MEDS: Potassium Chloride 20 MEQ in Premix 1 BAG IVPB SCH (13:17)
[2024-03-24] MEDS: CEFAZOLIN 1 GM in Sodium Chloride 0.9% 100 ML IVPB SCH (17:22)
[2024-03-24] MEDS: Lacosamide 200 MG in Sodium Chloride 0.9% 50 ML IVPB SCH (20:26)
[2024-03-24] MEDS ORDERED: levETIRAcetam 500 MG (5 mL) VIAL SLOW IVP SCH (21:00)
[2024-03-24] MEDS: Dextrose 5 %-0.45 % NaCl 1,000 ML IV SCH (22:45)
[2024-03-24 22:56] LABS: Glucose 21 mg/dL (83-110)
[2024-03-25 05:02] LABS: #Basophils 0.07 10x3/uL (0.0-0.2); %Basophils 0.3 % (0.0-1.0); %Eosinophils 0.6 % (0.0-10.0); %Lymphocytes 17.9 % (21.0-51.0); %Monocytes 9.1 % (0.0-10.0); %Neutrophils 70.9 % (42.0-75.0); Hematocrit 31.6 % (36.0-47.0); Hemoglobin 9.6 g/dL (12.0-16.0); Mean Corpuscular HGB CONC 30.4 g/dL (32.0-36.0); Mean Corpuscular Hemoglobin 29.5 pg (27.0-31.0); Mean Corpuscular Volume 97.2 fL (78.0-98.0); Mean Platelet Volume 12.1 fL (7.4-10.4); Platelet Count 311 10x3/uL (130-400); RBC Distribution Width 18.7 % (11.5-14.5); Red Blood Cell (RBC) Count 3.25 mill/uL (4.20-5.40)
[2024-03-25 05:23] LABS: Anion Gap 13 mmol/L (10-20); BUN (Urea Nitrogen) 19 mg/dL (9.8-20.1); Calc. Creatinine Clearance 20 mL/min (70-130); Calcium 7.6 mg/dL (7.8-10.44); Carbon Dioxide 19 mmol/L (23-31); Chloride 110 mmol/L (98-107); Estimated GFR 22; Glucose 112 mg/dL (83-110); Potassium 3.6 mmol/L (3.5-5.1); Sodium 138 mmol/L (136-145)
[2024-03-25 05:40] VITALS: BMI 24.3
[2024-03-25] MEDS: Scopolamine 1 mg/72 hour Patch TD SCH (09:05)
[2024-03-25] MEDS: GLYCOPYRROLATE/PF 0.2 MG/ML VIAL SLOW IVP SCH (09:05)
[2024-03-25] MEDS: Midodrine HCl 5 MG TAB PO SCH (09:05)
[2024-03-25] MEDS: Hydrocortisone Sod Succ/PF 100 mg/2 ml Vial IVP SCH ×2 (09:06→16:04)
[2024-03-25] MEDS: Vancomycin HCl 125 MG/5 ML (BATCHED) UDCUP PO SCH (22:57)
[2024-03-25] MEDS: Sodium Chloride 0.45% 1,000 ML IV SCH (23:30)
[2024-03-26] MEDS: HumaLOG 300 UNITS/3 ML VIAL SC PRN (04:10)
[2024-03-26 04:36] LABS: Anion Gap 15 mmol/L (10-20); BUN (Urea Nitrogen) 25 mg/dL (9.8-20.1); Calc. Creatinine Clearance 20 mL/min (70-130); Calcium 7.7 mg/dL (7.8-10.44); Carbon Dioxide 16 mmol/L (23-31); Chloride 109 mmol/L (98-107); Estimated GFR 22; Glucose 209 mg/dL (83-110); Potassium 3.8 mmol/L (3.5-5.1); Sodium 136 mmol/L (136-145)
[2024-03-26 04:43] LABS: Hemoglobin 8.9 g/dL (12.0-16.0); Mean Corpuscular HGB CONC 30.7 g/dL (32.0-36.0); Mean Corpuscular Hemoglobin 29.1 pg (27.0-31.0); Mean Corpuscular Volume 94.8 fL (78.0-98.0); Platelet Count 295 10x3/uL (130-400); RBC Distribution Width 18.6 % (11.5-14.5); Red Blood Cell (RBC) Count 3.06 mill/uL (4.20-5.40)
[2024-03-26 05:05] LABS: Anisocytosis SLIGHT = 6-15 cells HPF (0-5); Burr Cells SLIGHT = 2-5 cells HPF (0-1); Large Platelets 3.9 % (0-5); Lymphocytes 4 % (21-51); Monocytes 3 % (0-10); Neutrophil 93 % (42-75); Platelet Adequacy Comment Platelets Normal; Polychromasia SLIGHT = 2-3 cells HPF (0-2); Smudge Cells 1.9 %
[2024-03-26 08:41] LABS: Actual Bicarbonate (HCO3a) 20.4 mEq/L (22-28); Base Excess (BEa) -3.4 mEq/L (-2.0 to +3.0); Calcium, Ionized (arterial) 1.13 mmol/L (1.12-1.30); Carboxyhemoglobin (COHb) 0.3 gm% (0.0-3.0); Hematocrit-ABG 29 % (36.0-47.0); Hemoglobin (Hb) 9.8 g/dL (12.0-16.0); Potassium - ABG Lab 3.88 mmol/L (3.70-5.30); pH, Arterial 7.422 (7.35-7.45)
[2024-03-26] MEDS ORDERED: Metoclopramide HCl 10 MG (2 mL) VIAL IVP SCH ×2 (08:45→09:00)
[2024-03-26] MEDS: Vancomycin HCl 125 MG/5 ML (BATCHED) UDCUP PO SCH (09:00)
[2024-03-26] MEDS: Metoclopramide HCl 10 MG (2 mL) VIAL IVP SCH (09:00)
[2024-03-26] MEDS: Allopurinol 100 MG TAB PO SCH (09:05)
[2024-03-26] MEDS: Bisacodyl 10 MG SUPP PR SCH (09:15)
[2024-03-26 10:38] LABS: Puncture Site RRA
[2024-03-26] MEDS: Furosemide 100 MG (10 mL) VIAL SLOW IVP SCH (19:49)
[2024-03-26] MEDS: Albumin 25% 25 GM (100 mL) BOT IVPB SCH ×2 (19:49→22:58)
[2024-03-27 04:10] LABS: #Basophils Less than 0.03 10x3/uL (0.0-0.2); #Eosinphils Less than 0.03 10x3/uL (0.0-0.7); %Basophils 0.1 % (0.0-1.0); %Lymphocytes 4.7 % (21.0-51.0); %Monocytes 3.4 % (0.0-10.0); Hematocrit 23.5 % (36.0-47.0); Hemoglobin 7.4 g/dL (12.0-16.0); Mean Corpuscular HGB CONC 31.5 g/dL (32.0-36.0); Mean Corpuscular Volume 95.1 fL (78.0-98.0); Mean Platelet Volume 12.7 fL (7.4-10.4); Platelet Count 247 10x3/uL (130-400); RBC Distribution Width 18.5 % (11.5-14.5); Red Blood Cell (RBC) Count 2.47 mill/uL (4.20-5.40)
[2024-03-27 04:29] LABS: Anion Gap 17 mmol/L (10-20); BUN (Urea Nitrogen) 32 mg/dL (9.8-20.1); Calc. Creatinine Clearance 21 mL/min (70-130); Carbon Dioxide 16 mmol/L (23-31); Chloride 106 mmol/L (98-107); Estimated GFR 22; Glucose 154 mg/dL (83-110); Potassium 3.9 mmol/L (3.5-5.1); Sodium 135 mmol/L (136-145)
[2024-03-27] MEDS: Furosemide 100 MG (10 mL) VIAL SLOW IVP SCH (08:35)
[2024-03-28 05:13] LABS: Hematocrit 23.8 % (36.0-47.0); Hemoglobin 7.1 g/dL (12.0-16.0); Mean Corpuscular HGB CONC 29.8 g/dL (32.0-36.0); Mean Corpuscular Hemoglobin 29.3 pg (27.0-31.0); Mean Corpuscular Volume 98.3 fL (78.0-98.0); Mean Platelet Volume 12.9 fL (7.4-10.4); Platelet Count 251 10x3/uL (130-400); RBC Distribution Width 18.4 % (11.5-14.5); Red Blood Cell (RBC) Count 2.42 mill/uL (4.20-5.40)
[2024-03-28 05:15] LABS: ALT (SGPT) Less than 5 U/L (8-55); AST (SGOT) 6 U/L (5-34); Albumin 2.8 g/dL (3.4-4.8); Alkaline Phosphatase 58 U/L (40-110); Anion Gap 17 mmol/L (10-20); BUN (Urea Nitrogen) 37 mg/dL (9.8-20.1); Bilirubin, Total 0.2 mg/dL (0.2-1.2); Calc. Creatinine Clearance 18 mL/min (70-130); Calcium 7.9 mg/dL (7.8-10.44); Carbon Dioxide 14 mmol/L (23-31); Chloride 109 mmol/L (98-107); Estimated GFR 18; Globulin 2.1 g/dL (2.4-3.5); Glucose 105 mg/dL (83-110); Potassium 3.1 mmol/L (3.5-5.1); Protein, Total 4.9 g/dL (5.8-8.1); Sodium 137 mmol/L (136-145)
[2024-03-28 05:33] LABS: Burr Cells SLIGHT = 2-5 cells HPF (0-1); Giant Platelets 3.7 % (0-5); Hypochromia SLIGHT = 6-15 cells HPF (0-5); Lymphocytes 2 % (21-51); Macrocytosis SLIGHT = 6-15 cells HPF (0-5); Monocytes 2 % (0-10); Neutrophil 93 % (42-75); Ovalocytes SLIGHT = 2-5 cells HPF (0-1); Platelet Adequacy Comment Platelets Normal; Poikilocytosis MODERATE=16-30 cells HPF (0-5); Polychromasia SLIGHT = 2-3 cells HPF (0-2); Smudge Cells 2.8 %
[2024-03-28] MEDS: Albumin 25% 25 GM (100 mL) BOT IVPB SCH (10:11)
[2024-03-28] MEDS: Potassium Chloride 20 MEQ in Premix 1 BAG IVPB SCH (11:12)
[2024-03-28] MEDS: Furosemide 100 MG (10 mL) VIAL SLOW IVP SCH (11:14)
[2024-03-28] MEDS: Sodium Bicarbonate Tab 325 MG TAB PO SCH (11:49)
[2024-03-28] MEDS: Potassium Chloride 40 MEQ in Premix 1 BAG IVPB SCH (13:45)
[2024-03-28 19:25] LABS: Hematocrit 23.7 % (36.0-47.0); Hemoglobin 7.2 g/dL (12.0-16.0); Platelet Count 233 10x3/uL (130-400)
[2024-03-29 04:44] LABS: Hematocrit 25.5 % (36.0-47.0); Hemoglobin 7.5 g/dL (12.0-16.0); Mean Corpuscular HGB CONC 29.4 g/dL (32.0-36.0); Mean Corpuscular Hemoglobin 29.6 pg (27.0-31.0); Mean Corpuscular Volume 100.8 fL (78.0-98.0); Mean Platelet Volume 12.3 fL (7.4-10.4); Platelet Count 255 10x3/uL (130-400); RBC Distribution Width 18.8 % (11.5-14.5); Red Blood Cell (RBC) Count 2.53 mill/uL (4.20-5.40)
[2024-03-29 05:13] LABS: Anion Gap 25 mmol/L (10-20); BUN (Urea Nitrogen) 39 mg/dL (9.8-20.1); Calc. Creatinine Clearance 17 mL/min (70-130); Calcium 8.1 mg/dL (7.8-10.44); Carbon Dioxide 8 mmol/L (23-31); Chloride 108 mmol/L (98-107); Estimated GFR 17; Glucose 217 mg/dL (83-110); Potassium 3.9 mmol/L (3.5-5.1); Sodium 137 mmol/L (136-145)
[2024-03-29 05:17] LABS: Anisocytosis SLIGHT = 6-15 cells HPF (0-5); Band 1 % (5-11); Burr Cells MODERATE= 6-15 cells HPF (0-1); Giant Platelets 4.8 % (0-5); Lymphocytes 1 % (21-51); Macrocytosis SLIGHT = 6-15 cells HPF (0-5); Metamyelocyte 2 % (0-0); Monocytes 1 % (0-10); Myelocyte 3 % (0-0); Neutrophil 88 % (42-75); Ovalocytes SLIGHT = 2-5 cells HPF (0-1); Platelet Adequacy Comment Platelets Normal; Poikilocytosis SLIGHT = 6-15 cells HPF (0-5); Polychromasia SLIGHT = 2-3 cells HPF (0-2); Tear Drops SLIGHT = 2-5 cells HPF (0-1)
[2024-03-29] MEDS: Sodium Bicarb 50 mEq/50 ML VIAL IVP SCH (05:42)
[2024-03-29] MEDS: Sodium Bicarbonate 150 MEQ in Sterile Water 1,000 ML IV SCH ×2 (05:56→21:08)
[2024-03-29 10:43] LABS: Analyzer IN Cardio ER; Base Excess -11.4 mEq/L (-2.0 to +3.0); Chloride (VBG) 104 mmol/L (98-106); Hematocrit-VBG 25 % (36.0-47.0); Hemoglobin (Hb) 8.5 g/dL (11.7-16.1); Potassium (VBG) 3.85 mmol/L (3.70-5.30); Sodium 136 mmol/L (133-146); pH (venous) 7.285 (7.32-7.43)
[2024-03-29 10:59] LABS: Anion Gap 22 mmol/L (10-20); BUN (Urea Nitrogen) 40 mg/dL (9.8-20.1); Calc. Creatinine Clearance 18 mL/min (70-130); Carbon Dioxide 13 mmol/L (23-31); Chloride 108 mmol/L (98-107); Estimated GFR 18; Glucose 179 mg/dL (83-110); Potassium 3.9 mmol/L (3.5-5.1); Sodium 139 mmol/L (136-145)
[2024-03-29 14:01] LABS: Potassium, Urine 43.5 mmol/L
[2024-03-29 14:33] LABS: Lactic Acid 0.7 mmol/L (0.5-2.2)
[2024-03-29 14:37] LABS: ALT (SGPT) Less than 5 U/L (8-55); AST (SGOT) 7 U/L (5-34); Albumin 2.6 g/dL (3.4-4.8); Alkaline Phosphatase 60 U/L (40-110); Anion Gap 20 mmol/L (10-20); BUN (Urea Nitrogen) 41 mg/dL (9.8-20.1); Bilirubin, Total 0.2 mg/dL (0.2-1.2); Calc. Creatinine Clearance 19 mL/min (70-130); Calcium 7.9 mg/dL (7.8-10.44); Carbon Dioxide 16 mmol/L (23-31); Chloride 107 mmol/L (98-107); Estimated GFR 19; Globulin 2.2 g/dL (2.4-3.5); Glucose 165 mg/dL (83-110); Potassium 3.5 mmol/L (3.5-5.1); Protein, Total 4.8 g/dL (5.8-8.1); Sodium 139 mmol/L (136-145)
[2024-03-29] MEDS: EPOETIN ALFA-EPBX (ESRD) 10,000 UNITS/ML VIAL SC SCH (15:30)
[2024-03-30 04:38] LABS: #Basophils Less than 0.03 10x3/uL (0.0-0.2); #Eosinphils Less than 0.03 10x3/uL (0.0-0.7); %Basophils 0.1 % (0.0-1.0); %Lymphocytes 3.6 % (21.0-51.0); %Monocytes 6.4 % (0.0-10.0); %Neutrophils 86.6 % (42.0-75.0); Hematocrit 24.2 % (36.0-47.0); Hemoglobin 7.4 g/dL (12.0-16.0); Mean Corpuscular HGB CONC 30.6 g/dL (32.0-36.0); Mean Corpuscular Hemoglobin 29.7 pg (27.0-31.0); Mean Corpuscular Volume 97.2 fL (78.0-98.0); Mean Platelet Volume 12.8 fL (7.4-10.4); Platelet Count 253 10x3/uL (130-400); RBC Distribution Width 18.6 % (11.5-14.5); Red Blood Cell (RBC) Count 2.49 mill/uL (4.20-5.40)
[2024-03-30 05:02] LABS: Anion Gap 25 mmol/L (10-20); BUN (Urea Nitrogen) 42 mg/dL (9.8-20.1); Calc. Creatinine Clearance 18 mL/min (70-130); Carbon Dioxide 13 mmol/L (23-31); Cardiac Risk 4.3 (Less than 4.5); Chloride 103 mmol/L (98-107); Cholesterol 60 mg/dl (< 200 Desired); Estimated GFR 18; Glucose 215 mg/dL (83-110); HDL Cholesterol 14 mg/dL (>60 Neg Risk); LDL Cholesterol, Calculated 29 mg/dL; Magnesium 1.2 mg/dL (1.6-2.6); Sodium 138 mmol/L (136-145); Triglycerides 87 mg/dL (Less than 150)
[2024-03-30] MEDS: Potassium Chloride 20 MEQ in Premix 1 BAG IVPB SCH (06:29)
[2024-03-30 10:28] LABS: Anion Gap 24 mmol/L (10-20); BUN (Urea Nitrogen) 41 mg/dL (9.8-20.1); Calc. Creatinine Clearance 19 mL/min (70-130); Calcium 7.8 mg/dL (7.8-10.44); Carbon Dioxide 14 mmol/L (23-31); Chloride 104 mmol/L (98-107); Estimated GFR 19; Glucose 232 mg/dL (83-110); Potassium 4.1 mmol/L (3.5-5.1); Sodium 138 mmol/L (136-145)
[2024-03-30] MEDS: GLYCOPYRROLATE/PF 0.2 MG/ML VIAL SLOW IVP SCH ×2 (10:33→21:58)
[2024-03-30] MEDS: Metoclopramide HCl 10 MG (2 mL) VIAL IVP SCH (12:00)
[2024-03-30] MEDS: Sodium Bicarbonate 150 MEQ in Dextrose 5% in Water 1,000 ML IV SCH (12:54)
[2024-03-30] MEDS: Magnesium 2 GM/50 ML(in water) 2 GM in Premix 1 BAG IVPB SCH (15:01)
[2024-03-30] MEDS: Insulin Regular 300 UNITS/3 ML VIAL IVP SCH (15:45)
[2024-03-30 16:39] LABS: Actual Bicarbonate (HCO3v) 14.1 mEq/L (22-28)
[2024-03-30 16:43] LABS: ALT (SGPT) Less than 5 U/L (8-55); AST (SGOT) 7 U/L (5-34); Albumin 2.3 g/dL (3.4-4.8); Alkaline Phosphatase 61 U/L (40-110); Anion Gap 21 mmol/L (10-20); BUN (Urea Nitrogen) 41 mg/dL (9.8-20.1); Bilirubin, Total 0.3 mg/dL (0.2-1.2); Calc. Creatinine Clearance 20 mL/min (70-130); Calcium 7.8 mg/dL (7.8-10.44); Carbon Dioxide 17 mmol/L (23-31); Chloride 104 mmol/L (98-107); Estimated GFR 19; Globulin 2.5 g/dL (2.4-3.5); Glucose 196 mg/dL (83-110); Potassium 3.8 mmol/L (3.5-5.1); Protein, Total 4.8 g/dL (5.8-8.1); Sodium 138 mmol/L (136-145)
[2024-03-30 19:50] LABS: Magnesium 1.6 mg/dL (1.6-2.6)
[2024-03-31 04:24] LABS: #Basophils Less than 0.03 10x3/uL (0.0-0.2); #Eosinphils Less than 0.03 10x3/uL (0.0-0.7); %Basophils 0.1 % (0.0-1.0); %Eosinophils 0.1 % (0.0-10.0); %Lymphocytes 4.9 % (21.0-51.0); %Monocytes 9.8 % (0.0-10.0); %Neutrophils 82.6 % (42.0-75.0); Hematocrit 21.4 % (36.0-47.0); Hemoglobin 6.8 g/dL (12.0-16.0); Mean Corpuscular HGB CONC 31.8 g/dL (32.0-36.0); Mean Corpuscular Hemoglobin 28.9 pg (27.0-31.0); Mean Corpuscular Volume 91.1 fL (78.0-98.0); Mean Platelet Volume 12.4 fL (7.4-10.4); Platelet Count 189 10x3/uL (130-400); RBC Distribution Width 18.5 % (11.5-14.5); Red Blood Cell (RBC) Count 2.35 mill/uL (4.20-5.40)
[2024-03-31 04:57] LABS: Anion Gap 16 mmol/L (10-20); BUN (Urea Nitrogen) 39 mg/dL (9.8-20.1); Calc. Creatinine Clearance 20 mL/min (70-130); Calcium 7.9 mg/dL (7.8-10.44); Carbon Dioxide 24 mmol/L (23-31); Chloride 100 mmol/L (98-107); Estimated GFR 19; Glucose 238 mg/dL (83-110); Magnesium 1.5 mg/dL (1.6-2.6); Potassium 3.1 mmol/L (3.5-5.1); Sodium 137 mmol/L (136-145)
[2024-03-31] MEDS ORDERED: Dexmedetomidine In 0.9 % NaCl 100 ML IVPB SCH (08:30)
[2024-03-31 08:54] VITALS: BMI 30.3
[2024-03-31] MEDS: Magnesium 2 GM/50 ML(in water) 2 GM in Premix 1 BAG IVPB SCH (09:15)
[2024-03-31] MEDS: Potassium Chloride 40 MEQ in Premix 1 BAG IVPB SCH (09:15)
[2024-03-31] MEDS: Furosemide 40 MG (4 mL) VIAL SLOW IVP SCH (09:33)
[2024-03-31] MEDS: Vancomycin HCl 125 MG Capsule PO SCH (09:33)
[2024-03-31] MEDS: Amiodarone 450 MG in Dextrose 5% in Water 250 ML IVPB SCH (09:54)
[2024-03-31] MEDS ORDERED: Albumin 25% 25 GM (100 mL) BOT IVPB SCH ×2 (12:00→14:00)
[2024-03-31] MEDS: Albumin 25% 25 GM (100 mL) BOT IVPB SCH (13:40)
[2024-04-01 03:53] LABS: Hematocrit 24.8 % (36.0-47.0); Hemoglobin 8.1 g/dL (12.0-16.0); Mean Corpuscular HGB CONC 32.7 g/dL (32.0-36.0); Mean Corpuscular Volume 88.9 fL (78.0-98.0); Mean Platelet Volume 11.8 fL (7.4-10.4); Platelet Count 157 10x3/uL (130-400); RBC Distribution Width 18.7 % (11.5-14.5); Red Blood Cell (RBC) Count 2.79 mill/uL (4.20-5.40)
[2024-04-01 03:58] LABS: Anion Gap 16 mmol/L (10-20); BUN (Urea Nitrogen) 42 mg/dL (9.8-20.1); Calc. Creatinine Clearance 23 mL/min (70-130); Calcium 8.1 mg/dL (7.8-10.44); Carbon Dioxide 25 mmol/L (23-31); Chloride 99 mmol/L (98-107); Estimated GFR 20; Glucose 147 mg/dL (83-110); Potassium 3.8 mmol/L (3.5-5.1); Sodium 136 mmol/L (136-145)
[2024-04-01] MEDS: Albumin 25% 25 GM (100 mL) BOT IVPB SCH (04:01)
[2024-04-01 04:47] LABS: Anisocytosis MODERATE=16-30 cells HPF (0-5); Band 14 % (5-11); Large Platelets 7.9 % (0-5); Lymphocytes 6 % (21-51); Macrocytosis SLIGHT = 6-15 cells HPF (0-5); Monocytes 6 % (0-10); Neutrophil 74 % (42-75); Nucleated RBC (Manual Ct) 1 % (0); Ovalocytes SLIGHT = 2-5 cells HPF (0-1); Platelet Adequacy Comment Platelets Normal; Poikilocytosis SLIGHT = 6-15 cells HPF (0-5); Polychromasia SLIGHT = 2-3 cells HPF (0-2)
[2024-04-01 07:39] LABS: Actual Bicarbonate (HCO3a) 22.5 mEq/L (22-28); Base Excess (BEa) -0.9 mEq/L (-2.0 to +3.0); CO2 Tension 32.2 mmHg (35.0-45.0); Calcium, Ionized (arterial) 1.08 mmol/L (1.12-1.30); Carboxyhemoglobin (COHb) 1.5 gm% (0.0-3.0); Hematocrit-ABG 24 % (36.0-47.0); Hemoglobin (Hb) 8.3 g/dL (12.0-16.0); O2 Tension (PaO2), arterial 74.7 mmHg (> 70.0); pH, Arterial 7.463 (7.35-7.45)
[2024-04-01 07:50] LABS: Puncture Site RRA
[2024-04-01] MEDS: Acetaminophen 325 MG TAB PO PRN (16:41)
[2024-04-02 02:29] VITALS: BP 106/67
[2024-04-02 08:27] VITALS: TEMP 100.3
[2024-04-02] MEDS: Acetaminophen 325 MG TAB PO SCH (08:46)
[2024-04-02] MEDS: Morphine 4 MG/ML VIAL SLOW IVP PRN (15:07)
[2024-04-02] MEDS: Lorazepam 2 MG/ML VIAL SLOW IVP PRN (15:08)
[2024-04-15] MEDS ORDERED: Vancomycin HCl 125 MG Capsule PO SCH (09:00)
[2024-04-24] MEDS ORDERED: Vancomycin HCl 125 MG Capsule PO SCH (09:00)
== END 2024-04-02 17:19 | disposition expired | DRG 981 ==
LOC: INTOOBSV 11:51 → T4-A 11:51 → OBSVTOIN 03-16 19:37 → CCU 03-21 19:00
PROVIDERS: ADMIT Internal Medicine; ATTEND Hospitalist
PROC: 3E03329 Introduction of Other Anti-infective into Peripheral Vein, Percutaneous Approach (ICD-10-PCS; 2024-03-15)
PROC: 00C43ZZ Extirpation of Matter from Intracranial Subdural Space, Percutaneous Approach (ICD-10-PCS; principal; 2024-03-23)
PROC: 4A133R1 Monitoring of Arterial Saturation, Peripheral, Percutaneous Approach (ICD-10-PCS; 2024-03-23)
PROC: 3E033XZ Introduction of Vasopressor into Peripheral Vein, Percutaneous Approach (ICD-10-PCS; 2024-03-23)
PROC: 5A1955Z Respiratory Ventilation, Greater than 96 Consecutive Hours (ICD-10-PCS; 2024-03-23)
PROC: 0BH17EZ Insertion of Endotracheal Airway into Trachea, Via Natural or Artificial Opening (ICD-10-PCS; 2024-03-23)
PROC: 4A00X4Z Measurement of Central Nervous Electrical Activity, External Approach (ICD-10-PCS; 2024-03-24)
PROC: 02HV33Z Insertion of Infusion Device into Superior Vena Cava, Percutaneous Approach (ICD-10-PCS; 2024-03-24)
PROC: 4A00X4Z Measurement of Central Nervous Electrical Activity, External Approach (ICD-10-PCS; 2024-03-24)
PROC: 30233J1 Transfusion of Nonautologous Serum Albumin into Peripheral Vein, Percutaneous Approach (ICD-10-PCS; 2024-03-26)
PROC: 30233N1 Transfusion of Nonautologous Red Blood Cells into Peripheral Vein, Percutaneous Approach (ICD-10-PCS; 2024-03-31)
DX: A04.71 Enterocolitis due to Clostridium difficile, recurrent (principal); G93.41 Metabolic encephalopathy; J96.01 Acute respiratory failure with hypoxia; Z66 Do not resuscitate; Z51.5 Encounter for palliative care; I62.03 Nontraumatic chronic subdural hemorrhage; G93.5 Compression of brain; I50.21 Acute systolic (congestive) heart failure; N17.9 Acute kidney failure, unspecified; E87.20 Acidosis, unspecified; D69.3 Immune thrombocytopenic purpura; D62 Acute posthemorrhagic anemia; G93.49 Other encephalopathy; R57.9 Shock, unspecified; I13.0 Hypertensive heart and chronic kidney disease with heart failure and stage 1 through stage 4 chronic kidney disease, or unspecified chronic kidney disease; N18.4 Chronic kidney disease, stage 4 (severe); N25.81 Secondary hyperparathyroidism of renal origin; R64 Cachexia; I48.0 Paroxysmal atrial fibrillation; I27.20 Pulmonary hypertension, unspecified; E11.22 Type 2 diabetes mellitus with diabetic chronic kidney disease; E78.5 Hyperlipidemia, unspecified; M10.9 Gout, unspecified; D63.1 Anemia in chronic kidney disease; E87.6 Hypokalemia; R56.9 Unspecified convulsions; E11.65 Type 2 diabetes mellitus with hyperglycemia; R53.81 Other malaise; Z79.899 Other long term (current) drug therapy; Z79.82 Long term (current) use of aspirin; Z79.4 Long term (current) use of insulin; Z87.891 Personal history of nicotine dependence; Z90.710 Acquired absence of both cervix and uterus; Z82.49 Family history of ischemic heart disease and other diseases of the circulatory system; Z98.890 Other specified postprocedural states; Z68.30 Body mass index [BMI] 30.0-30.9, adult
CPT/HCPCS: 36415; 36416; 36430; 36600; 70450; 70551; 71045; 80048; 80053; 80061; 80185; 81002; 82010; 82140; 82436; 82805; 83605; 83735; 83935; 83970; 84100; 84133; 84300; 85025; 85046; 86850; 86900; 86901; 93005; 93010; 93306; 94002; 94003; 95700; 95711; 95819; 96372; 96374; 96375; 96376; A4217; C1713; C9113; C9254; G0378; J0171; J0282; J0665; J0690; J1100; J1720; J1815; J1940; J2060; J2250; J2270; J2405; J2704; J2765; J3475; J3480; J3490; J7030; J7042; J7050; J7070; J7999; P9016; P9047; Q2009; Q5105; Q5106